=== PATIENT | female | born 1945 | race Two or more races ===

== ENCOUNTER 2020-12-15 13:11 | Emergency (ER) | payer MEDICARE, OTHER ==
[~2020-12-15] VITALS: Ht 144.8 cm; Wt 74.8 kg
[2020-12-15] MEDS ORDERED: HYDROcodone-ACET 5/325MG TAB PO ONE ×2 (14:15→17:45)
[2020-12-15] MEDS ORDERED: MORPHINE SULFATE 4 MG/ML SYR/VIAL IV ONE (14:30)
[2020-12-15] MEDS ORDERED: ONDANSETRON HCL 4 MG/2 ML VIAL IV ONE (14:30)
[2020-12-15 17:36] VITALS: BP 143/78
== END 2020-12-15 18:20 | disposition home or self-care (01) ==
LOC: EDBD 13:11 → ER 13:11
DX: M25.552 Pain in left hip (principal); M25.551 Pain in right hip; R51.9 Headache, unspecified; R00.0 Tachycardia, unspecified; E11.9 Type 2 diabetes mellitus without complications; I10 Essential (primary) hypertension; K21.9 Gastro-esophageal reflux disease without esophagitis; Z90.49 Acquired absence of other specified parts of digestive tract; W18.39XA Other fall on same level, initial encounter; Y93.89 Activity, other specified; Y92.89 Other specified places as the place of occurrence of the external cause; Y99.8 Other external cause status
CPT/HCPCS: 70450; 71045; 72125; 72192; 73562

== ENCOUNTER 2023-11-05 10:31 | Inpatient (IN) | payer OTHER, MEDICARE, MEDICAID ==
[~2023-11-05] VITALS: Ht 162.6 cm; Wt 78.5 kg
[2023-11-05 01:00] VITALS: BP 105/57; PULSE 73; RESP 18; TEMP 97.5; O2SAT 96
[2023-11-05 11:50] VITALS: PULSE 118; RESP 21; O2SAT 94
[2023-11-05 12:10] LABS: Basophils # (auto) 0.1 10 ^3/uL (0-0.2); Basophils % (auto) 0.3 % (0.0-2.0); Eosinophils # (auto) 0 10 ^3/uL (0-0.8); Hematocrit 38.6 % (36.0-46.0); Hemoglobin 11.8 g/dL (12.2-16.2); Lymphocytes # (auto) 0.4 10 ^3/uL (0.4-5.4); Lymphocytes % (auto) 1.6 % (10.0-50.0); Mean Corpuscular Hemoglobin 23.6 pg (28.0-32.0); Mean Corpuscular Hgb Conc. 30.5 g/dL (32.0-36.0); Mean Corpuscular Volume 77.1 fL (80.0-100.0); Monocytes # (auto) 1.4 10 ^3/uL (0-1.3); Monocytes % (auto) 5.6 % (0.0-12.0); Neutrophils # (auto) 23.6 10 ^3/uL (1.6-8.6); Neutrophils % (auto) 92.5 % (37.0-80.0); Red Blood Cells 5.01 10^6/uL (4.0-5.20); Red Cell Distribution Width 17.3 % (11.8-14.3); White Blood Cell 25.5 10^3/uL (4.4-10.8)
[2023-11-05 12:12] LABS: Alanine Aminotransferase 18 U/L (7-40); Albumin 3.7 g/dL (3.2-4.8); Alkaline Phosphatase 132 U/L (46-116); Anion Gap 11 (5-15); Aspartate Aminotransferase 59 U/L (13-40); BUN/Creatinine Ratio 22.9 (10.0-20.0); Bilirubin, Total 0.5 mg/dL (0.2-1.0); Blood Urea Nitrogen 16 mg/dL (9-23); Calcium 9.5 mg/dL (8.7-10.4); Carbon Dioxide 19 mmol/L (20-30); Chloride 111 mmol/L (98-107); Glucose 116 mg/dL (74-106); Lipase 24 U/L (12-53); Sodium 141 mmol/L (136-145); Total Protein 7.8 g/dL (5.7-8.2)
[2023-11-05] MEDS: SODIUM CHLORIDE 0.9% 1,000 ML IV ONE ×2 (12:13→16:44)
[2023-11-05 12:21] LABS: Lactic Acid w/Reflex 3.9 mmol/L (0.4-2.0)
[2023-11-05 12:23] LABS: INR 1.06 (0.9-1.15); Partial Thromboplastin Time 27.4 SEC (24.5-34.5); Prothrombin Time 11.2 sec (9.3-11.8)
[2023-11-05] MEDS: metroNIDAZOLE 500MG/100ML 100 ML IV ONE (13:36)
[2023-11-05] MEDS: PANTOPRAZOLE 40 MG/10 ML VIAL INJ IV ONE (13:36)
[2023-11-05] MEDS ORDERED: ACETAMINOPHEN 325 MG TAB PO PRN (14:00)
[2023-11-05] MEDS ORDERED: DEXTROSE (50%) 50ML SYRG IV PRN (14:00)
[2023-11-05] MEDS ORDERED: PANTOPRAZOLE 40 MG/10 ML VIAL INJ IV ONE (14:00)
[2023-11-05 14:30] LABS: Triglycerides 98 mg/dL (< 150)
[2023-11-05 14:31] LABS: LDL Cholesterol 60 mg/dL (< 100)
[2023-11-05 14:32] LABS: Cholesterol 113 mg/dL (< 200); HDL Cholesterol 39 mg/dL (40-59)
[2023-11-05] MEDS: KETOROLAC TROMETH 30 MG/ML 1ML VIAL IV ONE (16:42)
[2023-11-05] MEDS: PIPERACILLIN-TAZOB 3.375GM 100 ML IV ONE (16:44)
[2023-11-05 16:59] LABS: Erythrocyte Sedimentation Rate 13 mm/hr (0-20)
[2023-11-05] MEDS: InsuLIN REG 1unit/0.01ml Soln (100units/ml) SC SCH (17:00)
[2023-11-05 17:35] VITALS: BP 110/73; PULSE 90; RESP 18; TEMP 97.5; O2SAT 96
[2023-11-05] MEDS: SODIUM CHLORIDE 0.9% 1,000 ML IV SCH (18:14)
[2023-11-05] MEDS: ACCU-CHEK COMFORT CURVE STRIP VI SCH (18:14)
[2023-11-05 20:00] VITALS: PULSE 84; RESP 18; O2SAT 94
[2023-11-05 20:06] LABS: Lactic Acid w/Reflex 3.4 mmol/L (0.4-2.0)
[2023-11-05 21:00] VITALS: BP 105/64; PULSE 84; RESP 18; TEMP 97.7; O2SAT 94
[2023-11-05] MEDS ORDERED: LACTATED RINGER'S 1,000 ML IV ONE (21:15)
[2023-11-05] MEDS: LACTATED RINGER'S 1,000 ML IV ONE (21:42)
[2023-11-05] MEDS: PIPERACILLIN-TAZOB 3.375GM 100 ML IV SCH (21:43)
[2023-11-05] MEDS: metroNIDAZOLE 500MG/100ML 100 ML IV SCH (21:43)
[2023-11-06 00:57] LABS: Lactic Acid w/Reflex 2.7 mmol/L (0.4-2.0)
[2023-11-06 05:00] VITALS: BP 99/46; PULSE 61; RESP 16; TEMP 97.4; O2SAT 96
[2023-11-06 06:55] LABS: Alanine Aminotransferase 19 U/L (7-40); Alkaline Phosphatase 95 U/L (46-116); Anion Gap 10 (5-15); Aspartate Aminotransferase 30 U/L (13-40); BUN/Creatinine Ratio 27.7 (10.0-20.0); Blood Urea Nitrogen 18 mg/dL (9-23); Calcium 8.4 mg/dL (8.7-10.4); Carbon Dioxide 19 mmol/L (20-30); Chloride 110 mmol/L (98-107); Glucose 94 mg/dL (74-106); Potassium 4.1 mmol/L (3.5-5.1); Sodium 139 mmol/L (136-145); Total Protein 6.2 g/dL (5.7-8.2)
[2023-11-06 06:57] LABS: Bilirubin, Total 0.7 mg/dL (0.2-1.0)
[2023-11-06 07:00] LABS: Urine Bacteria None Seen /hpf (None Seen)
[2023-11-06 07:21] LABS: Urine Blood 1+ /uL (Negative); Urine Clarity Clear (Clear); Urine Color Yellow (Yellow); Urine Protein, UAD TRACE (Negative); Urine Specific Gravity 1.031 (1.001-1.035); Urine Urobilinogen Normal (Negative); Urine WBC 9 /hpf (0 - 5); Urine pH 5.5 (5.0-9.0)
[2023-11-06 09:00] VITALS: BP 109/56; PULSE 64; RESP 18; TEMP 97.6; O2SAT 97
[2023-11-06 13:00] VITALS: BP 122/62; PULSE 67; RESP 17; TEMP 97.9; O2SAT 97
[2023-11-06] MEDS: PANTOPRAZOLE 40 MG/10 ML VIAL INJ IV SCH (13:22)
[2023-11-06] MEDS: ENOXAPARIN SOD 40 MG/0.4 ML SYRINGE SC SCH (13:23)
[2023-11-06] MEDS: KETOROLAC TROMETH 30 MG/ML 1ML VIAL IV PRN (13:24)
[2023-11-06] MEDS: FLEET ENEMA(ADULT) 135 ML PR ONE (15:35)
[2023-11-06] MEDS: LACTULOSE 20Gm/30ML SOLN PO ONE (15:35)
[2023-11-06 17:00] VITALS: BP 115/61; PULSE 64; RESP 17; TEMP 97.6; O2SAT 92
[2023-11-06 20:00] VITALS: PULSE 60; RESP 18; O2SAT 94
[2023-11-06 21:00] VITALS: BP 114/55; PULSE 60; RESP 18; TEMP 98; O2SAT 97
[2023-11-06] MEDS: DOCUSATE SOD 100 MG CAP PO SCH (22:32)
[2023-11-07 05:00] VITALS: BP 132/66; PULSE 55; RESP 19; TEMP 97.6; O2SAT 96
[2023-11-07 09:00] VITALS: BP 143/75; PULSE 72; RESP 17; TEMP 97; O2SAT 97
[2023-11-07 09:48] LABS: Basophils # (auto) 0.1 10 ^3/uL (0-0.2); Basophils % (auto) 0.8 % (0.0-2.0); Eosinophils # (auto) 0.8 10 ^3/uL (0-0.8); Eosinophils % (auto) 6.7 % (0.0-7.0); Hematocrit 33.1 % (36.0-46.0); Hemoglobin 10.4 g/dL (12.2-16.2); Lymphocytes # (auto) 0.9 10 ^3/uL (0.4-5.4); Lymphocytes % (auto) 8.2 % (10.0-50.0); Mean Corpuscular Hemoglobin 23.7 pg (28.0-32.0); Mean Corpuscular Hgb Conc. 31.4 g/dL (32.0-36.0); Mean Corpuscular Volume 75.5 fL (80.0-100.0); Monocytes # (auto) 0.4 10 ^3/uL (0-1.3); Monocytes % (auto) 3.9 % (0.0-12.0); Neutrophils # (auto) 9.2 10 ^3/uL (1.6-8.6); Neutrophils % (auto) 80.4 % (37.0-80.0); Nucleated Red Blood Cells % 0.1 %; Red Blood Cells 4.38 10^6/uL (4.0-5.20); Red Cell Distribution Width 17.2 % (11.8-14.3); White Blood Cell 11.4 10^3/uL (4.4-10.8)
[2023-11-07 09:59] LABS: Chloride 113 mmol/L (98-107); Potassium 3.8 mmol/L (3.5-5.1); Sodium 142 mmol/L (136-145)
[2023-11-07 10:00] LABS: Anion Gap 7 (5-15); Calcium 8.4 mg/dL (8.7-10.4); Carbon Dioxide 22 mmol/L (20-30)
[2023-11-07 10:05] LABS: BUN/Creatinine Ratio 21.2 (10.0-20.0); Blood Urea Nitrogen 11 mg/dL (9-23); Glucose 84 mg/dL (74-106)
[2023-11-07 13:00] VITALS: BP 122/69; PULSE 60; RESP 16; TEMP 97.4; O2SAT 96
[2023-11-07] MEDS: BISACODYL 10 MG RECT SUPP PR ONE (14:21)
[2023-11-07 17:00] VITALS: BP 144/57; PULSE 68; RESP 16; TEMP 97.4; O2SAT 96
[2023-11-07 21:00] VITALS: BP 157/84; PULSE 70; RESP 18; TEMP 97.7; O2SAT 96
[2023-11-07] MEDS: PIPERACILLIN-TAZOB 3.375GM 100 ML IV SCH (23:07)
[2023-11-08 01:00] VITALS: BP 137/79; PULSE 64; RESP 18; TEMP 97.6; O2SAT 95
[2023-11-08 05:00] VITALS: BP 137/71; PULSE 68; RESP 18; TEMP 97.6; O2SAT 95
[2023-11-08 07:48] VITALS: BP 163/60; PULSE 67; RESP 20; TEMP 98.4; O2SAT 99
[2023-11-08 11:43] VITALS: BP 126/75; PULSE 75; RESP 20; TEMP 98.4; O2SAT 97
[2023-11-08] MEDS: ARTIFICIAL TEARS 15ml EACHEYE PRN (13:56)
[2023-11-08 16:36] VITALS: BP 135/88; PULSE 84; RESP 20; TEMP 98.6; O2SAT 96
[2023-11-08] MEDS: ONDANSETRON HCL 4 MG/2 ML VIAL IV PRN (17:37)
[2023-11-08 22:00] VITALS: BP 123/72; PULSE 73; RESP 16; TEMP 98.3; O2SAT 94
[2023-11-08] MEDS ORDERED: PIPERACILLIN-TAZOB 3.375GM 100 ML IV SCH (23:00)
[2023-11-09] VITALS (7 sets, daily range): BP systolic 119–150; BP diastolic 59–86; PULSE 62–73; RESP 16–19; TEMP 97.8–98.7; O2SAT 93–96
[2023-11-09 06:13] LABS: Basophils # (auto) 0 10 ^3/uL (0-0.2); Basophils % (auto) 0.7 % (0.0-2.0); Eosinophils # (auto) 0.5 10 ^3/uL (0-0.8); Hemoglobin 9.7 g/dL (12.2-16.2); Lymphocytes # (auto) 1.3 10 ^3/uL (0.4-5.4); Monocytes # (auto) 0.4 10 ^3/uL (0-1.3); Neutrophils # (auto) 3.6 10 ^3/uL (1.6-8.6); White Blood Cell 5.9 10^3/uL (4.4-10.8)
[2023-11-09 06:16] LABS: Eosinophils % (auto) 8.4 % (0.0-7.0); Hematocrit 30.1 % (36.0-46.0); Lymphocytes % (auto) 21.8 % (10.0-50.0); Mean Corpuscular Hgb Conc. 32.4 g/dL (32.0-36.0); Mean Corpuscular Volume 74.1 fL (80.0-100.0); Monocytes % (auto) 7.5 % (0.0-12.0); Neutrophils % (auto) 61.6 % (37.0-80.0); Red Blood Cells 4.06 10^6/uL (4.0-5.20); Red Cell Distribution Width 16.8 % (11.8-14.3)
[2023-11-09 06:17] LABS: Anion Gap 10 (5-15); Carbon Dioxide 21 mmol/L (20-30); Chloride 112 mmol/L (98-107); Potassium 2.9 mmol/L (3.5-5.1); Sodium 143 mmol/L (136-145)
[2023-11-09 06:23] LABS: Glucose 75 mg/dL (74-106)
[2023-11-09 06:36] LABS: BUN/Creatinine Ratio 10.2 (10.0-20.0); Blood Urea Nitrogen < 5 mg/dL (9-23)
[2023-11-09] MEDS: PIPERACILLIN-TAZOB 3.375GM 100 ML IV SCH (09:47)
[2023-11-09] MEDS: GASTROGRAFIN 120 ML SOL ONE (09:51)
[2023-11-10] VITALS (7 sets, daily range): BP systolic 119–177; BP diastolic 74–84; PULSE 64–71; RESP 17–24; TEMP 97.6–98.4; O2SAT 95–98
[2023-11-10 05:52] LABS: Basophils # (auto) 0 10 ^3/uL (0-0.2); Basophils % (auto) 0.6 % (0.0-2.0); Eosinophils # (auto) 0.5 10 ^3/uL (0-0.8); Eosinophils % (auto) 8.5 % (0.0-7.0); Hematocrit 30.6 % (36.0-46.0); Hemoglobin 9.8 g/dL (12.2-16.2); Lymphocytes # (auto) 1.6 10 ^3/uL (0.4-5.4); Lymphocytes % (auto) 25.7 % (10.0-50.0); Mean Corpuscular Hgb Conc. 32.1 g/dL (32.0-36.0); Mean Corpuscular Volume 74.6 fL (80.0-100.0); Monocytes # (auto) 0.6 10 ^3/uL (0-1.3); Monocytes % (auto) 9.5 % (0.0-12.0); Neutrophils # (auto) 3.4 10 ^3/uL (1.6-8.6); Neutrophils % (auto) 55.7 % (37.0-80.0); Nucleated Red Blood Cells % 0.1 %; Red Cell Distribution Width 17.1 % (11.8-14.3); White Blood Cell 6.1 10^3/uL (4.4-10.8)
[2023-11-10 06:09] LABS: Calcium 8.3 mg/dL (8.7-10.4); Chloride 114 mmol/L (98-107); Potassium 3.1 mmol/L (3.5-5.1); Sodium 142 mmol/L (136-145)
[2023-11-10 06:10] LABS: Anion Gap 7 (5-15); Carbon Dioxide 21 mmol/L (20-30)
[2023-11-10 06:15] LABS: Glucose 76 mg/dL (74-106)
[2023-11-10 06:19] LABS: BUN/Creatinine Ratio 10.4 (10.0-20.0); Blood Urea Nitrogen < 5 mg/dL (9-23)
[2023-11-10] MEDS: cefTRIAXone 1GM/50ML D5W 50 ML IV SCH (13:08)
[2023-11-10] MEDS: GASTROGRAFIN 120 ML SOL ONE (14:29)
[2023-11-10] MEDS: LINEZOLID 600MG/300ML 300 ML IV SCH (23:47)
[2023-11-11 01:00] VITALS: BP 148/76; PULSE 64; RESP 19; TEMP 98.2; O2SAT 98
[2023-11-11 05:00] VITALS: BP 141/71; PULSE 59; RESP 17; TEMP 98; O2SAT 97
[2023-11-11 08:16] LABS: Chloride 111 mmol/L (98-107); Potassium 2.9 mmol/L (3.5-5.1); Sodium 142 mmol/L (136-145)
[2023-11-11 08:17] LABS: Anion Gap 6 (5-15); Carbon Dioxide 25 mmol/L (20-30)
[2023-11-11 08:18] LABS: Calcium 8.4 mg/dL (8.7-10.4)
[2023-11-11 08:23] LABS: Glucose 77 mg/dL (74-106)
[2023-11-11 08:25] LABS: BUN/Creatinine Ratio 11.6 (10.0-20.0); Blood Urea Nitrogen < 5 mg/dL (9-23)
[2023-11-11 09:00] VITALS: BP 134/80; PULSE 68; RESP 21; TEMP 98; O2SAT 96
[2023-11-11 09:05] LABS: Basophils # (auto) 0.1 10 ^3/uL (0-0.2); Basophils % (auto) 0.8 % (0.0-2.0); Eosinophils # (auto) 0.6 10 ^3/uL (0-0.8); Neutrophils # (auto) 4.4 10 ^3/uL (1.6-8.6); Neutrophils % (auto) 61.9 % (37.0-80.0); White Blood Cell 7.1 10^3/uL (4.4-10.8)
[2023-11-11 09:06] LABS: Hemoglobin 10.7 g/dL (12.2-16.2); Lymphocytes # (auto) 1.6 10 ^3/uL (0.4-5.4); Lymphocytes % (auto) 21.8 % (10.0-50.0); Mean Corpuscular Hemoglobin 23.5 pg (28.0-32.0); Mean Corpuscular Hgb Conc. 31.6 g/dL (32.0-36.0); Mean Corpuscular Volume 74.2 fL (80.0-100.0); Monocytes # (auto) 0.5 10 ^3/uL (0-1.3); Monocytes % (auto) 7.5 % (0.0-12.0); Red Blood Cells 4.58 10^6/uL (4.0-5.20); Red Cell Distribution Width 17.2 % (11.8-14.3)
[2023-11-11 13:00] VITALS: BP 162/96; PULSE 95; RESP 20; TEMP 97.7; O2SAT 96
[2023-11-11] MEDS: KETOROLAC TROMETH 30 MG/ML 1ML VIAL IV ONE (16:33)
[2023-11-11 17:00] VITALS: BP 156/69; PULSE 61; RESP 21; TEMP 98.3; O2SAT 92
[2023-11-11 21:00] VITALS: BP 163/92; PULSE 71; RESP 18; O2SAT 95
[2023-11-12] VITALS (7 sets, daily range): BP systolic 124–167; BP diastolic 74–87; PULSE 65–78; RESP 15–20; TEMP 97.7–98.4; O2SAT 93–97
[2023-11-12 06:35] LABS: Basophils # (auto) 0.1 10 ^3/uL (0-0.2); Monocytes # (auto) 0.7 10 ^3/uL (0-1.3); Monocytes % (auto) 8.5 % (0.0-12.0); Red Cell Distribution Width 17.7 % (11.8-14.3)
[2023-11-12 06:37] LABS: Basophils % (auto) 0.8 % (0.0-2.0); Eosinophils # (auto) 0.8 10 ^3/uL (0-0.8); Eosinophils % (auto) 10.7 % (0.0-7.0); Lymphocytes # (auto) 1.9 10 ^3/uL (0.4-5.4); Mean Corpuscular Hgb Conc. 31.4 g/dL (32.0-36.0); Mean Corpuscular Volume 76.3 fL (80.0-100.0); Neutrophils # (auto) 4.3 10 ^3/uL (1.6-8.6); Nucleated Red Blood Cells % 0.4 %; Red Blood Cells 4.19 10^6/uL (4.0-5.20); White Blood Cell 7.8 10^3/uL (4.4-10.8)
[2023-11-12 06:52] LABS: Chloride 111 mmol/L (98-107); Potassium 2.8 mmol/L (3.5-5.1); Sodium 143 mmol/L (136-145)
[2023-11-12 06:53] LABS: Anion Gap 8 (5-15); Carbon Dioxide 24 mmol/L (20-30)
[2023-11-12 06:54] LABS: Calcium 8.1 mg/dL (8.7-10.4)
[2023-11-12 06:59] LABS: Glucose 74 mg/dL (74-106)
[2023-11-12 07:00] LABS: BUN/Creatinine Ratio 11.6 (10.0-20.0); Blood Urea Nitrogen < 5 mg/dL (9-23)
[2023-11-12] MEDS ORDERED: ACETAMINOPHEN 325 MG TAB PO PRN (18:00)
[2023-11-13 01:00] VITALS: BP 139/68; PULSE 75; RESP 18; TEMP 99.2; O2SAT 93
[2023-11-13 04:50] VITALS: BP 139/68; PULSE 75; RESP 18; TEMP 99.2; O2SAT 93
[2023-11-13 05:00] VITALS: BP 133/69; PULSE 73; RESP 18; TEMP 98.6; O2SAT 93
== END 2023-11-13 06:54 | disposition home health service (06) | DRG 871 ==
LOC: EDBD 10:31 → ER 10:31 → OVERFLOW 14:04 → CENTRAL 17:18
PROVIDERS: ADMIT Nurse Practitioner Family; ATTEND Family Medicine
PROC: 05H933Z Insertion of Infusion Device into Right Brachial Vein, Percutaneous Approach (ICD-10-PCS; principal; 2023-11-11)
PROC: B54MZZA Ultrasonography of Right Upper Extremity Veins, Guidance (ICD-10-PCS; 2023-11-11)
DX: A41.81 Sepsis due to Enterococcus (principal); L89.153 Pressure ulcer of sacral region, stage 3; K92.2 Gastrointestinal hemorrhage, unspecified; E87.21 Acute metabolic acidosis; R74.01 Elevation of levels of liver transaminase levels; I10 Essential (primary) hypertension; E11.9 Type 2 diabetes mellitus without complications; E66.01 Morbid (severe) obesity due to excess calories; K43.9 Ventral hernia without obstruction or gangrene; K21.9 Gastro-esophageal reflux disease without esophagitis; K76.0 Fatty (change of) liver, not elsewhere classified; F03.90 Unspecified dementia, unspecified severity, without behavioral disturbance, psychotic disturbance, mood disturbance, and anxiety; K56.41 Fecal impaction; Z74.01 Bed confinement status; Z90.49 Acquired absence of other specified parts of digestive tract; Z68.29 Body mass index [BMI] 29.0-29.9, adult; Z79.4 Long term (current) use of insulin; Z88.6 Allergy status to analgesic agent
CPT/HCPCS: 36415; 74018; 74176; 74250; 76705; 80048; 80053; 80061; 81001; 82270; 82378; 82962; 83036; 83605; 83690; 83735; 83880; 84443; 84484; 85025; 85610; 85652; 85730; 86850; 86900; 86901; 87040; 87045; 87077; 87177; 87186; 87427; 87493; 96365; 97110; 97163; 97530; 99291; G0378; J1815; J1885; J2405; J2470; J2543; J3490

== ENCOUNTER 2024-08-17 19:24 | Inpatient (IN) | payer OTHER, MEDICARE, MEDICAID ==
[~2024-08-17] VITALS: Ht 162.6 cm; Wt 63.6 kg
[2024-08-17 20:15] LABS: Basophils # (auto) 0 10 ^3/uL (0-0.2); Basophils % (auto) 0.2 % (0.0-2.0); Eosinophils # (auto) 0 10 ^3/uL (0-0.8); Hematocrit 33.4 % (36.0-46.0); Hemoglobin 10.6 g/dL (12.2-16.2); Lymphocytes # (auto) 1.2 10 ^3/uL (0.4-5.4); Lymphocytes % (auto) 8.9 % (10.0-50.0); Mean Corpuscular Hemoglobin 24.5 pg (28.0-32.0); Mean Corpuscular Hgb Conc. 31.8 g/dL (32.0-36.0); Mean Corpuscular Volume 77.2 fL (80.0-100.0); Monocytes # (auto) 1.5 10 ^3/uL (0-1.3); Monocytes % (auto) 11.1 % (0.0-12.0); Neutrophils # (auto) 10.8 10 ^3/uL (1.6-8.6); Neutrophils % (auto) 79.8 % (37.0-80.0); Platelet Count (auto) 245 10^3/uL (140-450); Red Blood Cells 4.32 10^6/uL (4.0-5.20); Red Cell Distribution Width 15.3 % (11.8-14.3); White Blood Cell 13.5 10^3/uL (4.4-10.8)
[2024-08-17 20:37] LABS: Albumin 3.6 g/dL (3.2-4.8); Anion Gap 8 (5-15); Aspartate Aminotransferase 15 U/L (13-40); BUN/Creatinine Ratio 27.2 (10.0-20.0); Glucose 97 mg/dL (74-106); Lipase 22 U/L (12-53); Potassium 4.6 mmol/L (3.5-5.1); Total Protein 6.9 g/dL (5.7-8.2)
[2024-08-17 20:38] LABS: Bilirubin, Total 0.6 mg/dL (0.2-1.0)
[2024-08-17 21:09] LABS: Alanine Aminotransferase < 9 U/L (7-40); Alkaline Phosphatase 146 U/L (46-116); Blood Urea Nitrogen 31 mg/dL (9-23); Calcium 8.3 mg/dL (8.7-10.4); Carbon Dioxide 20 mmol/L (20-31); Chloride 107 mmol/L (98-107); Sodium 135 mmol/L (136-145)
[2024-08-17 21:50] VITALS: PULSE 89; RESP 16
--- NOTE | 2024-08-17 21:52 | ED.PDOC ---
History of Present Illness HPI Comments 79 y/o F is BIBA from home with c/o diarrhea and dysuria. Per EMS report, family called on patient's behalf, due to 3x day history of continuing diarrhea. Patient is bed-ridden and has Dementia. Upon arrival to ED, she c/o dysuria that began today. She has no reported nausea, vomiting, abdominal pain, bloody stools, additional urinary symptoms, fever, chills, or other associated symptoms. Further history is limited, due to patient's current demented state and absence of family/caretakers present. Chief Complaint: Diarrhea Time Seen by MD: 20:00 Primary Care Provider: UNKNOWN Reviewed Notes: Nurses Notes, J2Ee Android Developer Notes, Medications, Allergies Allergies: Coded Allergies: Acetaminophen (Verified Allergy, Unknown, 11/05/23) Hydrocodone (Verified Allergy, Unknown, 11/05/23) Home Meds Unable to Obtain Active Prescriptions or Reported Meds Information Source: Patient, Emergency Med Personnel Mode of Arrival: EMS Severity: Moderate Timing: Days Duration: Since onset Prehospital treatment: 12 Lead EKG, Accucheck, Electrician'S Helper Past Medical History PAST MEDICAL HISTORY: Dementia, DM (type II), GERD, HTN Past Medical History (Other): Sepsis secondary to bacteremia Acute lactic acidosis Bacteremia with Enterococcus faecalis Transaminitis FOBT positive Chronic bedridden Stage III decubitus sacrum Parkinson's disease Surgical History: Cholecystectomy GEOLOGICAL TECHNICAL OFFICER History: Unobtainable Family History Family History: Family hx of Cancer Social History Smoker: Non-Smoker Alcohol: Denies ETOH Use Drugs: Denies Drug Use Lives In: Home Constitutional: reports: fatigue, malaise; denies: chills, diaphoresis, fever, sweats, weakness, others EENTM: denies: blurred vision, double vision, ear bleeding, ear discharge, ear drainage, ear pain, ear ringing, eye pain, eye redness, hearing loss, mouth pain, mouth swelling, nasal discharge, nose bleeding, nose congestion, nose pain, photophobia, tearing, throat pain, throat swelling, voice changes, others Respiratory: denies: cough, hemoptysis, orthopnea, SOB at rest, shortness of breath, SOB with excertion, stridor, wheezing, others Cardiovascular: denies: chest pain, dizzy spells, diaphoresis, Dyspnea on exertion, edema, irregular heart beat, left arm pain, lightheadedness, palpitations, PND, syncope, others Gastrointestinal: reports: abdominal pain, diarrhea; denies: abdomen distended, blood streaked bowels, constipated, dysphagia, difficulty swallowing, hemate mesis, melena, poor appetite, poor fluid intake, rectal bleeding, rectal pain, vomiting, others Genitourinary: reports: burning; denies: abnormal vagina bleeding, dyspareunia, dysuria, flank pain, frequency, hematuria, incontinence, pain, , vagina discharge, urgency, others Neurological: denies: dizziness, fainting, headache, left sided numbness, left sided weakness, numbness, paresthesia, pre-existing deficit, right sided numbness, right sided weakness, seizure, speech problems, tingling, tremors, weakness, others Musculoskeletal: reports: back pain; denies: gout, joint pain, joint swelling, muscle pain, muscle stiffness, neck pain, others Integumetry: denies: bruises, change in color, change in hair/nails, dryness, laceration, lesions, lumps, rash, wounds, others Hematologic/Lymphatic: denies: anemia, blood clots, easy bleeding, easy bruising, swollen glands, others Endocrine: denies: excessive hunger, excessive sweating, excessive thirst, excessive urination, flushing, intolerance to cold, intolerance to heat, unexplained weight gain, unexplained weight loss, others Psychiatric: denies: anxiety, bipolar disorder, depression, hopeless, panic disorder, schizophrenia, sleepless, suicidal, others All Other Systems: Reviewed and Negative (Comprehensive systems review obtained and negative except for what is stated in the HPI.) Physical Exam General Appearance: No Apparent Distress, Normal, Other (patient is laying on her left-side) HEENT: Normal ENT Inspection, Pharynx Normal, TMs Normal Neck: Full Range of Motion, Non-Tender, Normal, Normal Inspection Respiratory: Chest Non-Tender, Lungs Clear, No Accessory Muscle Use, No Respiratory Distress, Normal Breath Sounds Cardiovascular: No Edema, No JVD, No Murmur, No Gallop, Normal Peripheral Pulses, Regular Rate/Rhythm Breast Exam: Deferred Gastrointestinal: No Organomegaly, Non Tender, No Pulsatile Mass, Normal Bowel Sounds, Soft Genitalia: Deferred Pelvic: Deferred Rectal: Deferred Extremities: No calf tenderness, Normal capillary refill, Normal inspection, Normal range of motion, Non-tender, No pedal edema Musculoskeletal : Apperance: Normal Neurologic: Alert, safety trainer II-XII nml as Tested, Normal Affect, Normal Mood, No Sensory Deficits, Other (Chronic bedridden) Cerebellar Function: Normal Reflexes: Normal Skin: Dry, Normal Color, Warm Lymphatic: No Adenopathy Was a procedure done? Was a procedure done?: No Differential Dx Considerations may include: viral syndrome, UTI, nephrolithiasis, gastritis, gastroenteritis, electrolyte imbalance, dehydration, among others X-Ray, Labs, Meds, VS Vital Signs Date Time Temp Pulse Resp B/P (MAP) Pulse Ox O2 Delivery O2 Flow Rate FiO2 08/17/24 23:04 96/54 08/17/24 23:00 82 17 96/54 (68) 08/17/24 22:15 98 17 75/43 (54) 100 08/17/24 22:10 279/249 08/17/24 21:55 86 22 240/224 (229) 97 08/17/24 21:51 89 16 214/120 (151) 08/17/24 21:50 89 16 Nasal Cannula* 4 36 08/17/24 19:44 99.0 95 22 105/60 (75) 95 99.0 Lab Test 08/17/24 23:06 08/17/24 20:06 Range/Units Urine Color Yellow Yellow Urine Clarity Turbid H Clear Urine pH 5.0 5.0-9.0 Urine Specific [place] 1.018 1.001-1.035 Urine Protein Trace H Negative Urine Ketones Negative Negative Urine Blood Trace H Negative /uL Urine Nitrite Negative Negative Urine Bilirubin Negative Negative Urine Urobilinogen 3 H Negative mg/dL Urine Leukocyte Esterase 3+ Negative /uL Urine RBC 6 0 - 4 /hpf Urine WBC Clumps Present None Seen /hpf Urine Microscopic WBC 380 H 0-5 /HPF Urine Squamous Epithelial Cells Few <5 /hpf Urine Bacteria Many H None Seen /hpf Urine Hyaline Casts Many 0 - 2 /lpf Urine Mucus Few None Seen Urine Glucose Normal Normal mg/dL White Blood Count 13.5 H 4.4-10.8 10^3/uL Red Blood Count 4.32 4.0-5.20 10^6/uL Hemoglobin 10.6 L 12.2-16.2 g/dL Hematocrit 33.4 L 36.0-46.0 % Mean Corpuscular Volume 77.2 L 80.0-100.0 fL Mean Corpuscular Hemoglobin 24.5 L 28.0-32.0 pg Mean Corpuscular Hemoglobin Concent 31.8 L 32.0-36.0 g/dL Red Cell Distribution Width 15.3 H 11.8-14.3 % Platelet Count 245 140-450 10^3/uL Mean Platelet Volume 8.2 6.9-10.8 fL Neutrophils (%) (Auto) 79.8 37.0-80.0 % Lymphocytes (%) (Auto) 8.9 L 10.0-50.0 % Monocytes (%) (Auto) 11.1 0.0-12.0 % Eosinophils (%) (Auto) 0.0 0.0-7.0 % Basophils (%) (Auto) 0.2 0.0-2.0 % Neutrophils # (Auto) 10.8 H 1.6-8.6 10 ^3/uL Lymphocytes # (Auto) 1.2 0.4-5.4 10 ^3/uL Monocytes # (Auto) 1.5 H 0-1.3 10 ^3/uL Eosinophils # (Auto) 0 0-0.8 10 ^3/uL Basophils # (Auto) 0 0-0.2 10 ^3/uL Nucleated Red Blood Cells 0.0 % Sodium Level 135 L 136-145 mmol/L Potassium Level 4.6 3.5-5.1 mmol/L Chloride Level 107 98-107 mmol/L Carbon Dioxide Level 20 20-31 mmol/L Anion Gap 8 5-15 Blood Urea Nitrogen 31 H 9-23 mg/dL Creatinine 1.14 H 0.550-1.02 mg/dL Glomerular Filtration Rate Calc 49 >90 mL/min BUN/Creatinine Ratio 27.2 H 10.0-20.0 Serum Glucose 97 74-106 mg/dL Lactic Acid Level 1.3 0.4-2.0 mmol/L Calcium Level 8.3 L 8.7-10.4 mg/dL Total Bilirubin 0.6 0.2-1.0 mg/dL Aspartate Amino Transferase (AST) 15 13-40 U/L Alanine Aminotransferase (ALT) < 9 7-40 U/L Alkaline Phosphatase 146 H 46-116 U/L Total Protein 6.9 5.7-8.2 g/dL Albumin 3.6 3.2-4.8 g/dL Lipase 22 12-53 U/L Current Medications Medications (Trade) Dose Ordered Sig/Marlen Route Start Time Stop Time Status Last Admin Sodium Chloride 1,000 ml @ 1,000 mls/hr Q1H ONCE IV 08/17/24 22:30 08/17/24 23:29 DC 08/17/24 22:35 Nitroglycerin (Ntrostat Sublingual) 0.4 mg ONCE ONCE SL 08/17/24 22:45 08/17/24 22:46 DC 08/17/24 22:10 X-Ray, Labs, Meds, VS Comment Imaging: X-rays and CT scans were reviewed and interpreted by this provider, IMPRESSION: Artifactually limited, noncontrast examination. Moderate to large volume stool within the rectum. Associated wall thickening of the sigmoid and rectum with perirectal inflammatory change. Findings suggest colitis, likely in part related to fecal impaction. Recommend close follow-up to resolution to exclude any underlying lesions. Other findings as above. HS:Y Laboratory: Labs reviewed and interpreted by this provider. Significant white count in urine shows significant for urinary tract infection Patient will be admitted for urinary tract infection and diarrhea Patient was given IV bolus fluid to help with hypotension Patient will be started on Rocephin 1 g Patient has prior medical visits reviewed. Med reconciliation performed Vital signs reviewed Time of 1ST Reevaluation: 20:30 Reevaluation 1ST: Unchanged Patient Education/Counseling: Diagnosis, Treatment, Other (patient has dementia) Family Education/Counseling: No Family Present Additional Information -Reviewed patient's previous visit(s): November 05, 2023 encounter for Sepsis, r/o C. Diff. - The following tests were ordered, and results were reviewed by me: UA, lipase, lactic acid w/reflex, CBC, CMP, CT abdomen/pelvis w/o contrast - Additional information was gathered from interviewing the following independent Historian: EMS - I reviewed and agreed with the following test results read by other provider: CT abdomen/pelvis w/o contrast - I discussed treatments and results with medical personnel and: patient Departure 1 Departure Time of Disposition: 00:58 Impression: Primary Impression: UTI (urinary tract infection) Qualified Codes: N30.01 - Acute cystitis with hematuria Additional Impressions: Hypotension Qualified Codes: I95.89 - Other hypotension Constipation Qualified Codes: K59.01 - Slow transit constipation Disposition: ADMITTED INPATIENT Condition: Fair e-Prescriptions Unable to Obtain Active Prescriptions or Reported Meds Discharged With: Self Critical Care Note Critical Care Time?: No Stability Stability form required: No Heart Score Heart Score: Heart Score Response (Comments) Value History N/A 0 EKG N/A 0 Age N/A 0 Risk Factors N/A 0 Troponin N/A 0 Total 0 I personally scribed for CHIP BOYERP ([email or web address]) on 08/17/24 at 21:52. Electronically submitted by Don Mays ([email or web address]). I personally scribed for CHIP BOYERP ([email or web address]) on 08/17/24 at 22:01. Electronically submitted by Don Mays ([email or web address]). CHIP BOYER SPA TECHNICIAN August 17, 2024 21:52
[2024-08-17] MEDS: NITROGLYCERIN 0.4 MG SL TAB SL ONE ×2 (22:02→22:10)
[2024-08-17] MEDS: hydrALAZINE HCL 20 MG/ML VL IV ONE (22:05)
[2024-08-17] MEDS: SODIUM CHLORIDE 0.9% 1,000 ML IV ONE (22:35)
[2024-08-17 23:29] LABS: Urine Bacteria MANY /hpf (None Seen); Urine Blood TRACE /uL (Negative); Urine Clarity Turbid (Clear); Urine Color Yellow (Yellow); Urine Hyaline Cast MANY /lpf (0 - 2); Urine Mucus FEW (None Seen); Urine Protein, UAD TRACE (Negative); Urine Specific Gravity 1.018 (1.001-1.035); Urine Squamous Epithelial Cell FEW /hpf (<5); Urine Urobilinogen 3 mg/dL (Negative); Urine WBC 380 /HPF (0-5); Urine WBC Clumps PRESENT /hpf (None Seen)
--- NOTE | 2024-08-17 23:55 | DVH ---
CT CHEST, ABDOMEN AND PELVIS WITHOUT CONTRAST HISTORY: diarrhea COMPARISON: CT CT AB PEL WO CON-NO ORAL OR IV on DOS: 11/05/23 TECHNIQUE: Helical axial CT images of the chest, abdomen and pelvis were obtained without intravenous contrast. Multiplanar reformats. One or more of the following radiation dose reduction techniques we re used for this examination: automated exposure control, adjustment of the mA and/or kV according to patient size, use of iterative reconstruction technique. FINDINGS: Evaluation of visceral and vascular structures is limited due to lack of contrast administration. Note that examination is also significantly limited by severe kyphosis and subsequent beam hardening artifact. CHEST: Mediastinum: Heart appears mildly enlarged. Coronary artery calcifications noted. No discretely enla rged mediastinal lymph nodes identified. Pleural cavity: No definite pleural effusions or pneumothorax. Lungs: Scattered atelectasis/ scarring, mostly in the lung bases. No lobar consolidation identified a t this time. Chest wall and axillae: No discretely enlarged axillary lymph nodes noted. ABDOMEN AND PELVIS: Liver: No discrete hepatic lesions as visualized. Gallbladder and biliary system: The gallbladder is not clearly delineated and may be surgically absen t. Pancreas: Negative. Spleen: Negative. Adrenal Glands: Negative. Kidneys and collecting system: Atrophic right kidney. No hydronephrosis. Bowel: Mild fluid content in the distal small bowel without overt dilatation. This may be reactive. No other evidence of high-grade small bowel obstruction at this time. Moderate to large volume stool in the rectum. Rectal wall thickening. Sigmoid thickening is also noted. Perirectal fat stranding. N o free intraperitoneal air identified. Retroperitoneum: Aortoiliac atherosclerotic calcifications. No definite evidence of abdominal aortic aneurysm. Pelvis: No sizable bladder calculus. Uterine calcifications noted. Osseous structures: Severe kyphosis. Age indeterminate but chronic appearing severe anterior wedge co mpression deformities of T6, T11 and T12. IMPRESSION: Artifactually limited, noncontrast examination. Moderate to large volume stool within the rectum. Associated wall thickening of the sigmoid and rect um with perirectal inflammatory change. Findings suggest colitis, likely in part related to fecal im paction. Recommend close follow-up to resolution to exclude any underlying lesions. Other findings as above. HS:Y
[2024-08-18] VITALS (21 sets, daily range): BP systolic 87–125; BP diastolic 57–79; PULSE 65–131; RESP 11–31; TEMP 97.6; O2SAT 73–100
--- NOTE | 2024-08-18 00:31 | DVH ---
CT HEAD WITHOUT CONTRAST INDICATION: henley COMPARISON: HEAD WITHOUT CONTRAST on DOS: 12/15/20 TECHNIQUE: CT of the head without intravenous contrast. RADIATION DOSE: CTDIvol: 36.18 mGy, DLP: 1187.42 mGy*cm FINDINGS: There is no evidence of intracranial hemorrhage, infarct, extra-axial collection, mass effect, midli ne shift, herniation or hydrocephalus. Minimal chronic white matter microvascular ischemic change. Mi [id number] ventricular and sulcal enlargement related to cerebral volume loss. Visualized parana twila sinuses and mastoid air cells are clear. Soft tissues and osseous structures are unremarkable. IMPRESSION: No acute intracranial abnormality identified.
[2024-08-18] MEDS: cefTRIAXone 1GM/50ML D5W 50 ML IV ONE (01:00)
[2024-08-18] MEDS ORDERED: ONDANSETRON HCL 4 MG/2 ML VIAL IV PRN (01:30)
[2024-08-18] MEDS: SODIUM CHLORIDE 0.9% 500 ML IV ONE ×2 (04:35→12:30)
--- NOTE | 2024-08-18 05:20 | DVHHP2 ---
History of Present Illness Reason for Visit: Urinary symptoms History of Present Illness 79-year-old female presents for evaluation of urinary symptoms. Patient developed dysuria for the past one day. She does have a history of dementia and is bed ridden. There is also reports of three day history of diarrhea. No abdominal pain, nausea or vomiting. No fever or chills. Past Medical History Hypertension, GERD, Parkinson's disease Past Surgical History Cholecystectomy Family History Noncontributory Smoke: No ALCOHOL: none Drugs: None Lives: with Family Review of Systems Review of Systems Review of systems are limited due to the patient's altered mental status. Allergies: Coded Allergies: Acetaminophen (Verified Allergy, Unknown, 11/05/23) Hydrocodone (Verified Allergy, Unknown, 11/05/23) Medications Current Medications Medications Dose Ordered Sig/Marlen Route Start Time Stop Time Status Last Admin Dose Admin Ceftriaxone Sodium 50 ml @ 100 mls/hr Q24H IV 08/19/24 01:00 Ondansetron HCl 4 mg Q4HP PRN IV 08/18/24 01:30 Enoxaparin Sodium 40 mg DAILY SC 08/18/24 10:00 Carbidopa/Levodopa 1 tab TID PO 08/18/24 06:00 Quetiapine Fumarate 25 mg BID PO 08/18/24 10:00 Exam Vital Signs Vital Signs Date Time Temp Pulse Resp B/P (MAP) Pulse Ox O2 Delivery O2 Flow Rate FiO2 08/18/24 04:00 62 08/18/24 04:00 18 80/42 (55) 100 08/18/24 01:00 98.0 98.0 08/17/24 21:50 Nasal Cannula* 4 36 Exam Gen: 79-year-old female in mild distress Skin: Warm, dry, normal color and texture, no rash. HEENT: Normocephalic atraumatic, mucous membranes moist and pink. Neck: Cervical and supraclavicular nodes normal without enlargement, trachea is midline, thyroid gland is normal without masses. Pulmonary: Clear to auscultation and percussion bilaterally. Cardiac: Regular rate and rhythm. No murmur Abdomen: Soft, nontender, nondistended, bowel sounds present all 4 quadrants, no guarding, no rigidity, no organomegaly. Extremities: No cyanosis, clubbing, no edema Neuro: Cranial nerves II through XII grossly intact, normal affect and speech, no focal motor deficits. Labs/Xrays ORDERING PHYSICIAN: CHIP BOYER PROCEDURE(s): CTCAP - CHST AB PEL WO CON-NO IV/ORAL REASON: diarrhea ORDER NUMBER(s): [id number], ACCESSION NUMBER(s): [id number] CT CHEST, ABDOMEN AND PELVIS WITHOUT CONTRAST HISTORY: diarrhea COMPARISON: CT CT AB PEL WO CON-NO ORAL OR IV on DOS: 11/05/23 TECHNIQUE: Helical axial CT images of the chest, abdomen and pelvis were obtained without intravenous contrast. Multiplanar reformats. One or more of the following radiation dose reduction techniques were used for this examination: automated exposure control, adjustment of the mA and/or kV according to patient size, use of iterative reconstruction technique. FINDINGS: Evaluation of visceral and vascular structures is limited due to lack of contrast administration. Note that examination is also significantly limited by severe kyphosis and subsequent beam hardening artifact. CHEST: Mediastinum: Heart appears mildly enlarged. Coronary artery calcifications noted. No discretely enlarged mediastinal lymph nodes identified. Pleural cavity: No definite pleural effusions or pneumothorax. Lungs: Scattered atelectasis/ scarring, mostly in the lung bases. No lobar consolidation identified at this time. Chest wall and axillae: No discretely enlarged axillary lymph nodes noted. ABDOMEN AND PELVIS: Liver: No discrete hepatic lesions as visualized. Gallbladder and biliary system: The gallbladder is not clearly delineated and may be surgically absent. Pancreas: Negative. Spleen: Negative. Adrenal Glands: Negative. Kidneys and collecting system: Atrophic right kidney. No hydronephrosis. Bowel: Mild fluid content in the distal small bowel without overt dilatation. This may be reactive. No other evidence of high-grade small bowel obstruction at this time. Moderate to large volume stool in the rectum. Rectal wall thickening. Sigmoid thickening is also noted. Perirectal fat stranding. No free intraperitoneal air identified. Retroperitoneum: Aortoiliac atherosclerotic calcifications. No definite evidence of abdominal aortic aneurysm. Pelvis: No sizable bladder calculus. Uterine calcifications noted. Osseous structures: Severe kyphosis. Age indeterminate but chronic appearing severe anterior wedge compression deformities of T6, T11 and T12. IMPRESSION: Artifactually limited, noncontrast examination. Moderate to large volume stool within the rectum. Associated wall thickening of the sigmoid and rectum with perirectal inflammatory change. Findings suggest colitis, likely in part related to fecal impaction. Recommend close follow-up to resolution to exclude any underlying lesions. Other findings as above. HS:Y RING PHYSICIAN: CHIP BOYER PROCEDURE(s): HWOCT - HEAD WITHOUT CONTRAST REASON: henley ORDER NUMBER(s): [id number], ACCESSION NUMBER(s): [id number] CT HEAD WITHOUT CONTRAST INDICATION: henley COMPARISON: HEAD WITHOUT CONTRAST on DOS: 12/15/20 TECHNIQUE: CT of the head without intravenous contrast. RADIATION DOSE: CTDIvol: 36.18 mGy, DLP: 1187.42 mGy*cm FINDINGS: There is no evidence of intracranial hemorrhage, infarct, extra-axial collection, mass effect, midline shift, herniation or hydrocephalus. Minimal chronic white matter microvascular ischemic change. [id number] ventricular and sulcal enlargement related to cerebral volume loss. Visualized paranasal sinuses and mastoid air cells are clear. Soft tissues and osseous structures are unremarkable. IMPRESSION: No acute intracranial abnormality identified. Labs Test 08/17/24 23:06 08/17/24 20:06 Range/Units Urine Color Yellow Yellow Urine Clarity Turbid H Clear Urine pH 5.0 5.0-9.0 Urine Specific [place] 1.018 1.001-1.035 Urine Protein Trace H Negative Urine Ketones Negative Negative Urine Blood Trace H Negative /uL Urine Nitrite Negative Negative Urine Bilirubin Negative Negative Urine Urobilinogen 3 H Negative mg/dL Urine Leukocyte Esterase 3+ Negative /uL Urine RBC 6 0 - 4 /hpf Urine WBC Clumps Present None Seen /hpf Urine Microscopic WBC 380 H 0-5 /HPF Urine Squamous Epithelial Cells Few <5 /hpf Urine Bacteria Many H None Seen /hpf Urine Hyaline Casts Many 0 - 2 /lpf Urine Mucus Few None Seen Urine Glucose Normal Normal mg/dL White Blood Count 13.5 H 4.4-10.8 10^3/uL Red Blood Count 4.32 4.0-5.20 10^6/uL Hemoglobin 10.6 L 12.2-16.2 g/dL Hematocrit 33.4 L 36.0-46.0 % Mean Corpuscular Volume 77.2 L 80.0-100.0 fL Mean Corpuscular Hemoglobin 24.5 L 28.0-32.0 pg Mean Corpuscular Hemoglobin Concent 31.8 L 32.0-36.0 g/dL Red Cell Distribution Width 15.3 H 11.8-14.3 % Platelet Count 245 140-450 10^3/uL Mean Platelet Volume 8.2 6.9-10.8 fL Neutrophils (%) (Auto) 79.8 37.0-80.0 % Lymphocytes (%) (Auto) 8.9 L 10.0-50.0 % Monocytes (%) (Auto) 11.1 0.0-12.0 % Eosinophils (%) (Auto) 0.0 0.0-7.0 % Basophils (%) (Auto) 0.2 0.0-2.0 % Neutrophils # (Auto) 10.8 H 1.6-8.6 10 ^3/uL Lymphocytes # (Auto) 1.2 0.4-5.4 10 ^3/uL Monocytes # (Auto) 1.5 H 0-1.3 10 ^3/uL Eosinophils # (Auto) 0 0-0.8 10 ^3/uL Basophils # (Auto) 0 0-0.2 10 ^3/uL Nucleated Red Blood Cells 0.0 % Sodium Level 135 L 136-145 mmol/L Potassium Level 4.6 3.5-5.1 mmol/L Chloride Level 107 98-107 mmol/L Carbon Dioxide Level 20 20-31 mmol/L Anion Gap 8 5-15 Blood Urea Nitrogen 31 H 9-23 mg/dL Creatinine 1.14 H 0.550-1.02 mg/dL Glomerular Filtration Rate Calc 49 >90 mL/min BUN/Creatinine Ratio 27.2 H 10.0-20.0 Serum Glucose 97 74-106 mg/dL Lactic Acid Level 1.3 0.4-2.0 mmol/L Calcium Level 8.3 L 8.7-10.4 mg/dL Total Bilirubin 0.6 0.2-1.0 mg/dL Aspartate Amino Transferase (AST) 15 13-40 U/L Alanine Aminotransferase (ALT) < 9 7-40 U/L Alkaline Phosphatase 146 H 46-116 U/L Total Protein 6.9 5.7-8.2 g/dL Albumin 3.6 3.2-4.8 g/dL Lipase 22 12-53 U/L Assessment/Plan Assessment/Plan Assessment Metabolic encephalopathy Complicated UTI Parkinson's disease Plan Admit the patient to [facility] to the hospitalist Delfina Urine bacterial culture pending Stool bacterial culture pending Resume home medications Continue treatment per orders. Plan discussed with: Patient My Orders Orders - DANIELLE AGEE Procedure Category Date Status Time Urine Bacterial GISSELLE 08/18/24 In Process Culture 01:19 Basic Metabolic Panel LAB 08/19/24 Verified 04:00 Admit ADMIT 08/18/24 Transmitted 01:19 Ondansetron Hcl PHA 08/18/24 In Process (Zofran) 01:30 Enoxaparin Sodium PHA 08/18/24 In Process (Lovenox) 10:00 Complete Blood Count LAB 08/19/24 Verified 04:00 Cardiac DIET 08/18/24 Transmitted Diet-2gna,Lofat,Lochol Breakfast Condition: Stable CELESTE 08/18/24 In Process 01:19 Bedrest With Bathroom CELESTE 08/18/24 In Process Privileg 01:19 Carbidopa W Levodopa PHA 08/18/24 In Process 25/100mg (Sinemet 2 06:00 Quetiapine Fumarate PHA 08/18/24 In Process Tablet (Seroquel Tab 10:00 Ceftriaxone 1gm/50ml PHA 08/19/24 In Process D5w (Rocephin) 01:00 Stool Bacterial GISSELLE 08/18/24 Logged Culture 05:16 Date of Service: August 18, 2024 Billing Provider: DANIELLE AGEE Common Visit Codes: [id number] INP/OBS CARE (HIGH) DANIELLE AGEE August 18, 2024 05:20
[2024-08-18] MEDS: CARBIDOPA W LEVODOPA 25/100mg TABLET PO SCH (05:46)
[2024-08-18] MEDS: QUEtiapine FUMARATE 25 MG TAB PO SCH (10:00)
[2024-08-18] MEDS: ENOXAPARIN SOD 40 MG/0.4 ML SYRINGE SC SCH (10:00)
[2024-08-18] MEDS: SODIUM CHLORIDE 0.9% 1,000 ML IV ONE (13:15)
--- NOTE | 2024-08-18 13:43 | DVHPN2 ---
Reviewed: Care Plan, H&P, Labs, Medications, Previous Orders, Radiology Changes from previous H/P or p: No Changes Objective Vitals Vital Signs Date Time Temp Pulse Resp B/P (MAP) Pulse Ox O2 Delivery O2 Flow Rate FiO2 08/18/24 12:00 82 08/18/24 11:30 18 93/48 (63) 100 08/18/24 09:45 98.4 08/18/24 07:30 Nasal Cannula* 2 28 Intake/Output Intake and Output 08/18/24 07:00 Intake Total 1550 ml Balance 1550 ml Intake IV Total 1550 ml Medications Current Medications Medications Dose Ordered Sig/Marlen Route Start Time Stop Time Status Last Admin Dose Admin Ceftriaxone Sodium 50 ml @ 100 mls/hr Q24H IV 08/19/24 01:00 Ondansetron HCl 4 mg Q4HP PRN IV 08/18/24 01:30 Enoxaparin Sodium 40 mg DAILY SC 08/18/24 10:00 08/18/24 10:00 40 MG Carbidopa/Levodopa 1 tab TID PO 08/18/24 06:00 08/18/24 05:46 1 TAB Quetiapine Fumarate 25 mg BID PO 08/18/24 10:00 08/18/24 10:00 25 MG Sodium Chloride 1,000 ml @ 125 mls/hr Q8H IV 08/18/24 14:30 Laboratory Results Laboratory Tests 08/17/24 20:06 Chemistry Test 08/17/24 20:06 Albumin 3.6 g/dL (3.2-4.8) Calcium Level 8.3 mg/dL (8.7-10.4) L Total Protein 6.9 g/dL (5.7-8.2) Lipid panel Test 08/17/24 20:06 Lipase 22 U/L (12-53) LFT Test 08/17/24 20:06 Alanine Aminotransferase (ALT) < 9 U/L (7-40) Alkaline Phosphatase 146 U/L (46-116) H Aspartate Amino Transferase (AST) 15 U/L (13-40) Total Bilirubin 0.6 mg/dL (0.2-1.0) Urinalysis Test 08/17/24 23:06 Urine Color Yellow (Yellow) Urine Clarity Turbid (Clear) H Urine pH 5.0 (5.0-9.0) Urine Specific [place] 1.018 (1.001-1.035) Urine Protein Trace (Negative) H Urine Ketones Negative (Negative) Urine Blood Trace /uL (Negative) H Urine Nitrite Negative (Negative) Urine Bilirubin Negative (Negative) Urine Urobilinogen 3 mg/dL (Negative) H Urine Leukocyte Esterase 3+ /uL (Negative) Urine RBC 6 /hpf (0 - 4) Urine WBC Clumps Present /hpf (None Seen) Urine Microscopic WBC 380 /HPF (0-5) H Urine Squamous Epithelial Cells Few /hpf (<5) Urine Bacteria Many /hpf (None Seen) H Urine Hyaline Casts Many /lpf (0 - 2) Urine Mucus Few (None Seen) Urine Glucose Normal mg/dL (Normal) Labs and/or images reviewed: Labs reviewed by me, Image(s) reviewed by me Assessment/Plan Assessment/Plan Sepsis secondary to tract infection: Blood cultures urine cultures Acute Metabolic encephalopathy Acute urinary tract infection: Rocephin Acute lactic acidosis Chronically bedridden dementia Type 2 diabetes Moderate obesity Patient is hospice revoked Time spent 70 minutes Patient is full code Advanced care planning time 20 mts Plan discussed with: Patient My Orders Orders - MOMO JAMESON MD Procedure Category Date Status Time Sodium Chloride 0.9% PHA 08/18/24 In Process 14:30 Sodium Chloride 0.9% PHA 08/18/24 In Process 13:15 Date of Service: August 18, 2024 Billing Provider: MOMO JAMESON MD Common Visit Codes: [id number] CARE 30-74 MIN MOMO JAMESON MD August 18, 2024 13:43
[2024-08-18] MEDS: SODIUM CHLORIDE 0.9% 1,000 ML IV SCH (14:30)
[2024-08-18] MEDS: NOREPINEPHRINE 8 MG/250ML KIT 250 ML IV SCH (15:00)
[2024-08-18] MEDS: traMADol HCL 50 MG TAB PO PRN (21:54)
[2024-08-19] VITALS (32 sets, daily range): BP systolic 84–112; BP diastolic 40–73; PULSE 65–119; RESP 13–33; TEMP 97.6–97.7; O2SAT 97–100
[2024-08-19] MEDS: cefTRIAXone 1GM/50ML D5W 50 ML IV SCH (01:45)
[2024-08-19 04:12] LABS: Basophils # (auto) 0.1 10 ^3/uL (0-0.2); Eosinophils # (auto) 0.4 10 ^3/uL (0-0.8); Hematocrit 34.6 % (36.0-46.0); Lymphocytes # (auto) 1.2 10 ^3/uL (0.4-5.4); Mean Corpuscular Hemoglobin 24.2 pg (28.0-32.0); Mean Corpuscular Hgb Conc. 31.7 g/dL (32.0-36.0); Monocytes # (auto) 0.6 10 ^3/uL (0-1.3); Neutrophils # (auto) 5.2 10 ^3/uL (1.6-8.6); Nucleated Red Blood Cells % 0.1 %; Red Blood Cells 4.53 10^6/uL (4.0-5.20); Red Cell Distribution Width 15.9 % (11.8-14.3)
[2024-08-19 04:14] LABS: Basophils % (auto) 0.9 % (0.0-2.0); Eosinophils % (auto) 5.1 % (0.0-7.0); Lymphocytes % (auto) 16.1 % (10.0-50.0); Mean Corpuscular Volume 76.5 fL (80.0-100.0); Monocytes % (auto) 7.7 % (0.0-12.0); Neutrophils % (auto) 70.2 % (37.0-80.0); Platelet Count (auto) 263 10^3/uL (140-450); White Blood Cell 7.4 10^3/uL (4.4-10.8)
[2024-08-19 04:23] LABS: Potassium 4.2 mmol/L (3.5-5.1); Sodium 143 mmol/L (136-145)
[2024-08-19 04:24] LABS: Anion Gap 10 (5-15)
[2024-08-19 04:29] LABS: BUN/Creatinine Ratio 40.7 (10.0-20.0); Blood Urea Nitrogen 22 mg/dL (9-23); Glucose 103 mg/dL (74-106)
[2024-08-19 04:41] LABS: Carbon Dioxide 19 mmol/L (20-31); Chloride 114 mmol/L (98-107)
--- NOTE | 2024-08-19 08:49 | DVHPN2 ---
Reviewed: Care Plan, H&P, Labs, Medications, Previous Orders, Radiology Changes from previous H/P or p: No Changes Objective Vitals Vital Signs Date Time Temp Pulse Resp B/P (MAP) Pulse Ox O2 Delivery O2 Flow Rate FiO2 08/19/24 08:25 83/58 08/19/24 08:00 108 08/19/24 08:00 13 100 08/19/24 07:45 Nasal Cannula* 2 28 08/19/24 07:36 97.7 97.7 Intake/Output Intake and Output 08/19/24 07:00 Intake Total 2885.00 ml Output Total 2850 ml Balance 35.00 ml Intake Oral 120 ml IV Total 2765.00 ml Output Urine Total 2850 ml # Bowel Movements 4 Medications Current Medications Medications Dose Ordered Sig/Marlen Route Start Time Stop Time Status Last Admin Dose Admin Ceftriaxone Sodium 50 ml @ 100 mls/hr Q24H IV 08/19/24 01:00 08/19/24 01:45 100 MLS/HR Ondansetron HCl 4 mg Q4HP PRN IV 08/18/24 01:30 Enoxaparin Sodium 40 mg DAILY SC 08/18/24 10:00 08/18/24 10:00 40 MG Carbidopa/Levodopa 1 tab TID PO 08/18/24 06:00 08/19/24 06:57 1 TAB Quetiapine Fumarate 25 mg BID PO 08/18/24 10:00 08/18/24 23:28 25 MG Sodium Chloride 1,000 ml @ 125 mls/hr Q8H IV 08/18/24 14:30 08/19/24 07:50 125 MLS/HR Norepinephrine Bitartrate 250 ml @ 3.75 mls/hr Q24H IV 08/18/24 15:00 08/18/24 15:00 3.75 MLS/HR Tramadol HCl 50 mg Q8HPRN PRN PO 08/18/24 21:15 08/19/24 06:57 50 MG Laboratory Results Laboratory Tests 08/19/24 03:52 Chemistry Test 08/19/24 03:52 Calcium Level 9.0 mg/dL (8.7-10.4) Magnesium Level 1.8 mg/dL (1.6-2.6) Urinalysis Test 08/17/24 23:06 Urine Color Yellow (Yellow) Urine Clarity Turbid (Clear) H Urine pH 5.0 (5.0-9.0) Urine Specific [place] 1.018 (1.001-1.035) Urine Protein Trace (Negative) H Urine Ketones Negative (Negative) Urine Blood Trace /uL (Negative) H Urine Nitrite Negative (Negative) Urine Bilirubin Negative (Negative) Urine Urobilinogen 3 mg/dL (Negative) H Urine Leukocyte Esterase 3+ /uL (Negative) Urine RBC 6 /hpf (0 - 4) Urine WBC Clumps Present /hpf (None Seen) Urine Microscopic WBC 380 /HPF (0-5) H Urine Squamous Epithelial Cells Few /hpf (<5) Urine Bacteria Many /hpf (None Seen) H Urine Hyaline Casts Many /lpf (0 - 2) Urine Mucus Few (None Seen) Urine Glucose Normal mg/dL (Normal) Microbiology Microbiology Date/Time Source Procedure Growth Status 08/18/24 01:05 Blood Blood Culture - Preliminary NO GROWTH AFTER 24 HOURS OF INCUBATION. Resulted Labs and/or images reviewed: Labs reviewed by me, Image(s) reviewed by me Assessment/Plan Assessment/Plan Sepsis secondary to tract infection: Blood cultures negative, urine cultures pending, Acute Metabolic encephalopathy Acute hypotension: Levophed Acute urinary tract infection continue: Rocephin Acute lactic acidosis Chronically bedridden dementia Parkinson's: Sinemet Depression: Seroquel Hypertension Hypothyroidism Dementia Type 2 diabetes Moderate obesity Patient is hospice revoked Time spent 70 minutes Patient is full code Patient ICU admission Seen in ER bed 4. Advanced care planning time 20 mts Patient's daughter Juanita [phone] at bedside Patient is hospice revoked in September 2023 Currently on home health Plan discussed with: Patient My Orders Orders - MOMO JAMESON MD Procedure Category Date Status Time Sodium Chloride 0.9% PHA 08/18/24 In Process 14:30 Norepinephrine 8 PHA 08/18/24 In Process Mg/250ml Kit 15:00 Transfer Orders XFER 08/18/24 Transmitted 14:58 * Wound Consult CONS 08/18/24 Transmitted Date of Service: August 19, 2024 Billing Provider: MOMO JAMESON MD Common Visit Codes: [id number] INP/OBS CARE(HIGH) MOMO JAMESON MD August 19, 2024 08:49
[2024-08-19] MEDS ORDERED: DEXTROSE (50%) 50ML SYRG IV PRN (09:30)
[2024-08-19] MEDS: LISINOPRIL 20 MG TAB PO SCH (10:00)
[2024-08-19] MEDS: ASPirin 81 mg TAB PO SCH (10:29)
[2024-08-19] MEDS: LEVOTHYROXINE SODIUM 25 MCG TAB PO ONE (10:30)
[2024-08-19] MEDS: PANTOPRAZOLE 40 MG/10 ML VIAL INJ IV SCH (10:31)
[2024-08-19] MEDS: InsuLIN REG 1unit/0.01ml Soln (100units/ml) SC SCH ×2 (11:30→22:30)
[2024-08-19] MEDS: ACCU-CHEK COMFORT CURVE STRIP VI SCH (11:53)
[2024-08-20] VITALS (7 sets, daily range): BP systolic 137–154; BP diastolic 65–79; PULSE 66–94; RESP 16–19; TEMP 97.5–98.7; O2SAT 90–94
[2024-08-20] MEDS: QUEtiapine FUMARATE 25 MG TAB ONE (00:29)
[2024-08-20] MEDS: CARBIDOPA W LEVODOPA 25/100mg TABLET ONE (00:30)
[2024-08-20] MEDS: cefTRIAXone 1GM/50ML D5W 50 ML IV ONE (00:55)
[2024-08-20] MEDS: LEVOTHYROXINE SODIUM 25 MCG TAB PO SCH (06:00)
--- NOTE | 2024-08-20 08:18 | DVHPN2 ---
Reviewed: Care Plan, H&P, Labs, Medications, Previous Orders, Radiology Changes from previous H/P or p: No Changes Objective Vitals Vital Signs Date Time Temp Pulse Resp B/P (MAP) Pulse Ox O2 Delivery O2 Flow Rate FiO2 08/20/24 05:00 97.7 66 16 139/65 (89) 90 97.7 08/19/24 19:30 Nasal Cannula* 2 28 Intake/Output Intake and Output 08/20/24 07:00 Intake Total 2451.5625 ml Output Total 1100 ml Balance 1351.5625 ml Intake Oral 0 ml IV Total 2451.5625 ml Output Urine Total 1100 ml Medications Current Medications Medications Dose Ordered Sig/Marlen Route Start Time Stop Time Status Last Admin Dose Admin Ceftriaxone Sodium 50 ml @ 100 mls/hr Q24H IV 08/19/24 01:00 08/20/24 00:52 100 MLS/HR Ondansetron HCl 4 mg Q4HP PRN IV 08/18/24 01:30 Enoxaparin Sodium 40 mg DAILY SC 08/18/24 10:00 08/19/24 10:31 40 MG Carbidopa/Levodopa 1 tab TID PO 08/18/24 06:00 08/20/24 06:00 1 TAB Quetiapine Fumarate 25 mg BID PO 08/18/24 10:00 08/20/24 00:29 25 MG Sodium Chloride 1,000 ml @ 125 mls/hr Q8H IV 08/18/24 14:30 08/19/24 23:30 125 MLS/HR Norepinephrine Bitartrate 250 ml @ 3.75 mls/hr Q24H IV 08/18/24 15:00 08/18/24 15:00 3.75 MLS/HR Tramadol HCl 50 mg Q8HPRN PRN PO 08/18/24 21:15 08/19/24 06:57 50 MG Lisinopril 40 mg DAILY PO 08/19/24 10:00 Levothyroxine Sodium 137 mcg QAM@0600 PO 08/20/24 06:00 08/20/24 06:00 137 MCG Pantoprazole Sodium 40 mg DAILY IV 08/19/24 10:00 08/19/24 10:31 40 MG Aspirin 81 mg DAILY PO 08/19/24 10:00 08/19/24 10:29 81 MG Diagnostic Test (Pha) 1 strip ACHS 08/19/24 11:30 08/20/24 06:57 1 STRIP Insulin Human Regular HS SC 08/19/24 22:00 Insulin Human Regular AC SC 08/19/24 11:30 Dextrose 50 ml UD PRN IV 08/19/24 09:30 Laboratory Results Laboratory Tests 08/19/24 03:52 Urinalysis Test 08/17/24 23:06 Urine Color Yellow (Yellow) Urine Clarity Turbid (Clear) H Urine pH 5.0 (5.0-9.0) Urine Specific [place] 1.018 (1.001-1.035) Urine Protein Trace (Negative) H Urine Ketones Negative (Negative) Urine Blood Trace /uL (Negative) H Urine Nitrite Negative (Negative) Urine Bilirubin Negative (Negative) Urine Urobilinogen 3 mg/dL (Negative) H Urine Leukocyte Esterase 3+ /uL (Negative) Urine RBC 6 /hpf (0 - 4) Urine WBC Clumps Present /hpf (None Seen) Urine Microscopic WBC 380 /HPF (0-5) H Urine Squamous Epithelial Cells Few /hpf (<5) Urine Bacteria Many /hpf (None Seen) H Urine Hyaline Casts Many /lpf (0 - 2) Urine Mucus Few (None Seen) Urine Glucose Normal mg/dL (Normal) Microbiology Microbiology Date/Time Source Procedure Growth Status 08/18/24 01:05 Blood Blood Culture - Preliminary NO GROWTH AFTER 48 HOURS OF INCUBATION. Resulted 08/17/24 23:06 Voided Urine Urine Culture - Preliminary Resulted Labs and/or images reviewed: Labs reviewed by me, Image(s) reviewed by me Assessment/Plan Assessment/Plan Sepsis secondary to urinary tract infection: Blood cultures negative, urine cultures mixed, repeat urine cultures pending continue Rocephin Acute Metabolic encephalopathy Acute hypotension: Resolved with Levophed drip Acute urinary tract infection continue: Rocephin Acute lactic acidosis Chronically bedridden dementia Parkinson's: Sinemet Depression: Seroquel Hypertension Hypothyroidism Dementia Type 2 diabetes Moderate obesity Patient is hospice revoked Time spent 70 minutes Patient is full code Patient's daughter Juanita [phone] at bedside Patient is hospice revoked in September 2023 Currently on home health Plan discussed with: Patient My Orders Orders - MOMO JAMESON MD Procedure Category Date Status Time Lisinopril Tablet PHA 08/19/24 In Process (Zestril Tablet) 10:00 Levothyroxine Tablet PHA 08/20/24 In Process (Synthroid Tablet) 06:00 Pantoprazole PHA 08/19/24 In Process (Protonix) 10:00 Aspirin Tablet PHA 08/19/24 In Process 10:00 Glucose Blood PHA 08/19/24 In Process (Accu-Chek Comfort 11:30 Insulin R (Human) PHA 08/19/24 In Process (Insulin R) 22:00 Insulin R (Human) PHA 08/19/24 In Process (Insulin R) 11:30 Dextrose 50% Syringe PHA 08/19/24 In Process 09:30 Mechanical Soft Diet DIET 08/19/24 Transmitted Breakfast Clostridium Difficile GISSELLE 08/19/24 In Process Toxin 12:22 * Dietary Consult CONS 08/19/24 Transmitted 15:30 Specialty Bed Mattress ORDERS 08/19/24 Transmitted 15:30 Date of Service: August 20, 2024 Billing Provider: MOMO JAMESON MD Common Visit Codes: [id number] CARE 30-74 MIN MOMO JAMESON MD August 20, 2024 08:18
[2024-08-20] MEDS ORDERED: ONDANSETRON HCL 4 MG/2 ML VIAL IV PRN (10:30)
[2024-08-20] MEDS ORDERED: traMADol HCL 50 MG TAB PO PRN (10:30)
[2024-08-20 10:46] LABS: Urine Bacteria None Seen /hpf (None Seen)
[2024-08-20 10:55] LABS: Urine Blood Negative /uL (Negative); Urine Clarity Clear (Clear); Urine Color Colorless (Yellow); Urine Protein, UAD Negative (Negative); Urine Specific Gravity 1.006 (1.001-1.035); Urine Squamous Epithelial Cell None Seen /hpf (<5); Urine Urobilinogen Normal (Negative); Urine WBC 4 /HPF (0-5)
[2024-08-20] MEDS: SODIUM CHLORIDE 0.9% 1,000 ML IV SCH (10:57)
[2024-08-20] MEDS: cefTRIAXone 1GM/50ML D5W 50 ML IV SCH (10:57)
[2024-08-20] MEDS: ACCU-CHEK COMFORT CURVE STRIP VI SCH (12:12)
[2024-08-20] MEDS: InsuLIN REG 1unit/0.01ml Soln (100units/ml) SC SCH ×2 (12:13→21:57)
[2024-08-20] MEDS ORDERED: ACETAMINOPHEN 500 MG TAB or CAP PO PRN (13:15)
[2024-08-20] MEDS: ERTAPENEM SOD INJ 1 GM in SODIUM CHL 0.9% 50 ML IV ONE (14:00)
[2024-08-20] MEDS: CARBIDOPA W LEVODOPA 25/100mg TABLET PO SCH (14:55)
[2024-08-20] MEDS: ACETAMINOPHEN 325 MG TAB PO PRN (14:56)
[2024-08-20] MEDS: QUEtiapine FUMARATE 25 MG TAB PO SCH (21:56)
[2024-08-21] VITALS (8 sets, daily range): BP systolic 143–178; BP diastolic 46–90; PULSE 68–101; RESP 18–19; TEMP 97.7–98.3; O2SAT 95–98
[2024-08-21] MEDS: LEVOTHYROXINE SODIUM 25 MCG TAB PO SCH (06:00)
[2024-08-21 07:21] LABS: Basophils # (auto) 0 10 ^3/uL (0-0.2); Basophils % (auto) 0.8 % (0.0-2.0); Eosinophils # (auto) 0.3 10 ^3/uL (0-0.8); Eosinophils % (auto) 6.8 % (0.0-7.0); Hematocrit 34.6 % (36.0-46.0); Hemoglobin 10.8 g/dL (12.2-16.2); Lymphocytes # (auto) 1.2 10 ^3/uL (0.4-5.4); Lymphocytes % (auto) 26.2 % (10.0-50.0); Mean Corpuscular Hemoglobin 24.1 pg (28.0-32.0); Mean Corpuscular Hgb Conc. 31.1 g/dL (32.0-36.0); Mean Corpuscular Volume 77.6 fL (80.0-100.0); Monocytes # (auto) 0.6 10 ^3/uL (0-1.3); Monocytes % (auto) 11.8 % (0.0-12.0); Neutrophils # (auto) 2.5 10 ^3/uL (1.6-8.6); Neutrophils % (auto) 54.4 % (37.0-80.0); Nucleated Red Blood Cells % 0.1 %; Platelet Count (auto) 252 10^3/uL (140-450); Red Blood Cells 4.46 10^6/uL (4.0-5.20); Red Cell Distribution Width 15.3 % (11.8-14.3); White Blood Cell 4.7 10^3/uL (4.4-10.8)
[2024-08-21 07:42] LABS: Albumin 3.5 g/dL (3.2-4.8); Alkaline Phosphatase 108 U/L (46-116); Anion Gap 11 (5-15); BUN/Creatinine Ratio 18.2 (10.0-20.0); Calcium 9.2 mg/dL (8.7-10.4); Potassium 4.1 mmol/L (3.5-5.1); Sodium 144 mmol/L (136-145); Total Protein 6.8 g/dL (5.7-8.2)
[2024-08-21 07:46] LABS: Alanine Aminotransferase < 9 U/L (7-40); Aspartate Aminotransferase 12 U/L (13-40); Bilirubin, Total 0.3 mg/dL (0.2-1.0); Blood Urea Nitrogen 8 mg/dL (9-23); Carbon Dioxide 20 mmol/L (20-31); Chloride 113 mmol/L (98-107); Glucose 67 mg/dL (74-106)
--- NOTE | 2024-08-21 08:04 | DVHPN2 ---
Reviewed: Care Plan, H&P, Labs, Medications, Previous Orders, Radiology Changes from previous H/P or p: No Changes Objective Vitals Vital Signs Date Time Temp Pulse Resp B/P (MAP) Pulse Ox O2 Delivery O2 Flow Rate FiO2 08/21/24 05:00 97.8 101 18 150/90 (110) 95 97.8 08/20/24 20:00 Nasal Cannula* 2 28 Intake/Output Intake and Output 08/21/24 07:00 Intake Total 1000 ml Output Total 3900 ml Balance -2900 ml Intake Oral 900 ml IV Total 100 ml Output Urine Total 3900 ml # Bowel Movements 4 Medications Current Medications Medications Dose Ordered Sig/Marlen Route Start Time Stop Time Status Last Admin Dose Admin Sodium Chloride 1,000 ml @ 100 mls/hr Q10H IV 08/20/24 08:30 08/20/24 21:56 100 MLS/HR Ondansetron HCl 4 mg Q4HP PRN IV 08/20/24 10:30 Enoxaparin Sodium 40 mg DAILY SC 08/21/24 10:00 Carbidopa/Levodopa 1 tab TID PO 08/20/24 14:00 08/21/24 05:56 1 TAB Quetiapine Fumarate 25 mg BID PO 08/20/24 22:00 08/20/24 21:56 25 MG Lisinopril 40 mg DAILY PO 08/21/24 10:00 Levothyroxine Sodium 137 mcg QAM@0600 PO 08/21/24 06:00 08/21/24 06:00 137 MCG Pantoprazole Sodium 40 mg DAILY IV 08/21/24 10:00 Aspirin 81 mg DAILY PO 08/21/24 10:00 Diagnostic Test (Pha) 1 strip ACHS 08/20/24 11:30 08/21/24 06:00 1 STRIP Insulin Human Regular HS SC 08/20/24 22:00 Insulin Human Regular AC SC 08/20/24 11:30 Dextrose 50 ml UD PRN IV 08/20/24 10:30 Ertapenem 1 gm/ Sodium Chloride 50 ml @ 100 mls/hr DAILY IV 08/21/24 10:00 Acetaminophen 650 mg Q6HP PRN PO 08/20/24 14:00 08/21/24 02:34 650 MG Laboratory Results Laboratory Tests 08/21/24 05:04 Chemistry Test 08/21/24 05:04 Albumin 3.5 g/dL (3.2-4.8) Calcium Level 9.2 mg/dL (8.7-10.4) Total Protein 6.8 g/dL (5.7-8.2) LFT Test 08/21/24 05:04 Alanine Aminotransferase (ALT) < 9 U/L (7-40) Alkaline Phosphatase 108 U/L (46-116) Aspartate Amino Transferase (AST) 12 U/L (13-40) L Total Bilirubin 0.3 mg/dL (0.2-1.0) Urinalysis Test 08/17/24 23:06 08/20/24 10:40 Urine WBC Clumps Present /hpf (None Seen) Urine Hyaline Casts Many /lpf (0 - 2) Urine Mucus Few (None Seen) Urine Color Colorless (Yellow) Urine Clarity Clear (Clear) Urine pH 6.0 (5.0-9.0) Urine Specific [place] 1.006 (1.001-1.035) Urine Protein Negative (Negative) Urine Ketones Negative (Negative) Urine Blood Negative /uL (Negative) Urine Nitrite Negative (Negative) Urine Bilirubin Negative (Negative) Urine Urobilinogen Normal mg/dL (Negative) Urine Leukocyte Esterase 1+ /uL (Negative) Urine RBC 1 /hpf (0 - 4) Urine Microscopic WBC 4 /HPF (0-5) Urine Squamous Epithelial Cells None seen /hpf (<5) Urine Bacteria None seen /hpf (None Seen) Urine Glucose Normal mg/dL (Normal) Microbiology Microbiology Date/Time Source Procedure Growth Status 08/19/24 12:53 Stool Clostridium difficile Toxin Assay - Final Complete 08/18/24 01:05 Blood Blood Culture - Preliminary NO GROWTH AFTER 72 HOURS OF INCUBATION. Resulted 08/17/24 23:06 Voided Urine Urine Culture - Final Escherichia coli - ESBL Complete Labs and/or images reviewed: Labs reviewed by me, Image(s) reviewed by me Assessment/Plan Assessment/Plan Sepsis secondary to urinary tract infection: Blood cultures negative, urine cultures growing ESBL E coli DC Rocephin start Invanz 1 g IV daily for two weeks Acute Metabolic encephalopathy Acute hypotension secondary to sepsis: Resolved with Levophed drip Acute urinary tract infection continue: Invanz Acute lactic acidosis Chronically bedridden Dementia Parkinson's: Sinemet Depression: Seroquel Hypertension Hypothyroidism Dementia Type 2 diabetes Moderate obesity Patient is hospice revoked Time spent 50 minutes Patient is full code Patient's daughter Juanita [phone] at bedside Patient is hospice revoked in September 2023 Currently on home health Plan discussed with: Patient My Orders Orders - MOMO JAMESON MD Procedure Category Date Status Time Sodium Chloride 0.9% PHA 08/20/24 In Process 08:30 Urine Bacterial GISSELLE 08/20/24 In Process Culture 10:52 Lisinopril Tablet PHA 08/21/24 In Process (Zestril Tablet) 10:00 Levothyroxine Tablet PHA 08/21/24 In Process (Synthroid Tablet) 06:00 Pantoprazole PHA 08/21/24 In Process (Protonix) 10:00 Aspirin Tablet PHA 08/21/24 In Process 10:00 Glucose Blood PHA 08/20/24 In Process (Accu-Chek Comfort 11:30 Insulin R (Human) PHA 08/20/24 In Process (Insulin R) 22:00 Dextrose 50% Syringe PHA 08/20/24 In Process 10:30 Insulin R (Human) PHA 08/20/24 In Process (Insulin R) 11:30 Ertapenem Sod Inj PHA 08/21/24 In Process (Invanz) 10:00 Acetaminophen Tablet PHA 08/20/24 In Process (Tylenol Tablet) 14:00 Covid19 Antigen [facility] 08/21/24 Logged Pt Request For Service PT 08/21/24 Logged 07:55 Date of Service: August 21, 2024 Billing Provider: MOMO JMAESON MD Common Visit Codes: [id number] INP/OBS CARE(HIGH) MOMO JAMESON MD August 21, 2024 08:04
[2024-08-21] MEDS: LISINOPRIL 20 MG TAB PO SCH (08:21)
[2024-08-21] MEDS: PANTOPRAZOLE 40 MG/10 ML VIAL INJ IV SCH (09:41)
[2024-08-21] MEDS: ASPirin 81 mg TAB PO SCH (09:41)
[2024-08-21] MEDS: ERTAPENEM SOD INJ 1 GM in SODIUM CHL 0.9% 50 ML IV SCH (09:42)
[2024-08-21] MEDS: ENOXAPARIN SOD 40 MG/0.4 ML SYRINGE SC SCH (09:43)
[2024-08-21 16:25] LABS: COVID19 ANTIGEN SOFIA FIA POSITIVE (NEGATIVE)
[2024-08-21] MEDS: amLODIPine BESYLATE 5 MG TAB PO ONE (18:37)
[2024-08-21] MEDS: hydrALAZINE HCL 20 MG/ML VL IV PRN (22:49)
[2024-08-21] MEDS: DEXTROSE (50%) 50ML SYRG IV PRN (22:50)
[2024-08-22] VITALS (8 sets, daily range): BP systolic 119–168; BP diastolic 47–103; PULSE 82–107; RESP 14–18; TEMP 97.3–98.4; O2SAT 97–99
--- NOTE | 2024-08-22 08:18 | DVHPN2 ---
Reviewed: Care Plan, H&P, Labs, Medications, Previous Orders, Radiology Changes from previous H/P or p: No Changes Objective Vitals Vital Signs Date Time Temp Pulse Resp B/P (MAP) Pulse Ox O2 Delivery O2 Flow Rate FiO2 08/22/24 05:00 98.3 89 16 168/71 (103) 99 98.3 08/21/24 20:00 Nasal Cannula* 2 28 Intake/Output Intake and Output 08/22/24 07:00 Intake Total 1255 ml Output Total 2600 ml Balance -1345 ml Intake Oral 305 ml IV Total 950 ml Output Urine Total 2600 ml # Bowel Movements 3 Medications Current Medications Medications Dose Ordered Sig/Marlen Route Start Time Stop Time Status Last Admin Dose Admin Sodium Chloride 1,000 ml @ 100 mls/hr Q10H IV 08/20/24 08:30 08/21/24 09:45 100 MLS/HR Ondansetron HCl 4 mg Q4HP PRN IV 08/20/24 10:30 Enoxaparin Sodium 40 mg DAILY SC 08/21/24 10:00 08/21/24 09:43 40 MG Carbidopa/Levodopa 1 tab TID PO 08/20/24 14:00 08/22/24 06:20 1 TAB Quetiapine Fumarate 25 mg BID PO 08/20/24 22:00 08/21/24 09:41 25 MG Lisinopril 40 mg DAILY PO 08/21/24 10:00 08/21/24 08:21 40 MG Levothyroxine Sodium 137 mcg QAM@0600 PO 08/21/24 06:00 08/22/24 06:20 137 MCG Pantoprazole Sodium 40 mg DAILY IV 08/21/24 10:00 08/21/24 09:41 40 MG Aspirin 81 mg DAILY PO 08/21/24 10:00 08/21/24 09:41 81 MG Diagnostic Test (Pha) 1 strip ACHS 08/20/24 11:30 08/22/24 06:20 1 STRIP Insulin Human Regular HS SC 08/20/24 22:00 Insulin Human Regular AC SC 08/20/24 11:30 Dextrose 50 ml UD PRN IV 08/20/24 10:30 08/21/24 22:50 50 ML Ertapenem 1 gm/ Sodium Chloride 50 ml @ 100 mls/hr DAILY IV 08/21/24 10:00 08/21/24 09:42 100 MLS/HR Acetaminophen 650 mg Q6HP PRN PO 08/20/24 14:00 08/21/24 02:34 650 MG Amlodipine Besylate 5 mg DAILY PO 08/22/24 10:00 Hydralazine HCl 10 mg Q6HP PRN IV 08/21/24 22:30 08/21/24 22:49 10 MG Laboratory Results Laboratory Tests 08/21/24 05:04 Urinalysis Test 08/17/24 23:06 08/20/24 10:40 Urine WBC Clumps Present /hpf (None Seen) Urine Hyaline Casts Many /lpf (0 - 2) Urine Mucus Few (None Seen) Urine Color Colorless (Yellow) Urine Clarity Clear (Clear) Urine pH 6.0 (5.0-9.0) Urine Specific [place] 1.006 (1.001-1.035) Urine Protein Negative (Negative) Urine Ketones Negative (Negative) Urine Blood Negative /uL (Negative) Urine Nitrite Negative (Negative) Urine Bilirubin Negative (Negative) Urine Urobilinogen Normal mg/dL (Negative) Urine Leukocyte Esterase 1+ /uL (Negative) Urine RBC 1 /hpf (0 - 4) Urine Microscopic WBC 4 /HPF (0-5) Urine Squamous Epithelial Cells None seen /hpf (<5) Urine Bacteria None seen /hpf (None Seen) Urine Glucose Normal mg/dL (Normal) Microbiology Microbiology Date/Time Source Procedure Growth Status 08/20/24 10:40 Urine - [place] Urine Culture - Preliminary Resulted 08/19/24 12:53 Stool Clostridium difficile Toxin Assay - Final Complete 08/18/24 01:05 Blood Blood Culture - Preliminary NO GROWTH AFTER 72 HOURS OF INCUBATION. Resulted Labs and/or images reviewed: Labs reviewed by me, Image(s) reviewed by me Assessment/Plan Assessment/Plan Sepsis secondary to urinary tract infection: Blood cultures negative, urine cultures growing ESBL E coli continue Invanz 1 g IV daily for two weeks Incidental COVID positive patient on 2 L of oxygen by nasal cannula, chest x-ray negative, vitamin-C vitamin D3 zinc multivitamin Acute Metabolic encephalopathy Acute hypotension secondary to sepsis: Resolved with Levophed drip Acute urinary tract infection continue: Invanz Acute lactic acidosis Chronically bedridden Dementia Parkinson's: Sinemet Depression: Seroquel Hypertension Hypothyroidism Dementia Type 2 diabetes Moderate obesity Patient is hospice revoked Time spent 50 minutes Patient is full code Patient's daughter Juanita [phone] at bedside Discussed with the patient's daughter and the patient is being discharged to residential facility for IV antibiotics for two weeks for complicated UTI Plan discussed with: Patient My Orders Orders - MOMO JAMESON MD Procedure Category Date Status Time Insert Midline ORDERS 08/21/24 Transmitted 12:44 Date of Service: August 22, 2024 Billing Provider: MOMO JAMESON MD Common Visit Codes: [id number] INP/OBS CARE(HIGH) MOMO JAMESON MD August 22, 2024 08:18
--- NOTE | 2024-08-22 08:38 | DVHDS2 ---
Discharge Summary Date of Admission August 19, 2024 at 01:19 Date of Discharge: August 22, 2024 Admitting Diagnosis Generalized weakness and altered mental status Wounds: None Labs/Diagnostic Data: Laboratory Results Test 08/22/24 05:31 08/21/24 15:30 08/21/24 05:04 08/20/24 10:40 POC Glucose 70 mg/dl (70-106) SARS-CoV-2 Antigen (Rapid) Positive (NEGATIVE) White Blood Count 4.7 10^3/uL (4.4-10.8) Red Blood Count 4.46 10^6/uL (4.0-5.20) Hemoglobin 10.8 g/dL (12.2-16.2) Hematocrit 34.6 % (36.0-46.0) Mean Corpuscular Volume 77.6 fL (80.0-100.0) Mean Corpuscular Hemoglobin 24.1 pg (28.0-32.0) Mean Corpuscular Hemoglobin Concent 31.1 g/dL (32.0-36.0) Red Cell Distribution Width 15.3 % (11.8-14.3) Platelet Count 252 10^3/uL (140-450) Mean Platelet Volume 8.8 fL (6.9-10.8) Neutrophils (%) (Auto) 54.4 % (37.0-80.0) Lymphocytes (%) (Auto) 26.2 % (10.0-50.0) Monocytes (%) (Auto) 11.8 % (0.0-12.0) Eosinophils (%) (Auto) 6.8 % (0.0-7.0) Basophils (%) (Auto) 0.8 % (0.0-2.0) Neutrophils # (Auto) 2.5 10 ^3/uL (1.6-8.6) Lymphocytes # (Auto) 1.2 10 ^3/uL (0.4-5.4) Monocytes # (Auto) 0.6 10 ^3/uL (0-1.3) Eosinophils # (Auto) 0.3 10 ^3/uL (0-0.8) Basophils # (Auto) 0 10 ^3/uL (0-0.2) Nucleated Red Blood Cells 0.1 % Sodium Level 144 mmol/L (136-145) Potassium Level 4.1 mmol/L (3.5-5.1) Chloride Level 113 mmol/L (98-107) Carbon Dioxide Level 20 mmol/L (20-31) Anion Gap 11 (5-15) Blood Urea Nitrogen 8 mg/dL (9-23) Creatinine 0.44 mg/dL (0.550-1.02) Glomerular Filtration Rate Calc 99 mL/min (>90) BUN/Creatinine Ratio 18.2 (10.0-20.0) Serum Glucose 67 mg/dL (74-106) Calcium Level 9.2 mg/dL (8.7-10.4) Total Bilirubin 0.3 mg/dL (0.2-1.0) Aspartate Amino Transferase (AST) 12 U/L (13-40) Alanine Aminotransferase (ALT) < 9 U/L (7-40) Alkaline Phosphatase 108 U/L (46-116) Total Protein 6.8 g/dL (5.7-8.2) Albumin 3.5 g/dL (3.2-4.8) Urine Color Colorless (Yellow) Urine Clarity Clear (Clear) Urine pH 6.0 (5.0-9.0) Urine Specific [place] 1.006 (1.001-1.035) Urine Protein Negative (Negative) Urine Ketones Negative (Negative) Urine Blood Negative /uL (Negative) Urine Nitrite Negative (Negative) Urine Bilirubin Negative (Negative) Urine Urobilinogen Normal mg/dL (Negative) Urine Leukocyte Esterase 1+ /uL (Negative) Urine RBC 1 /hpf (0 - 4) Urine Microscopic WBC 4 /HPF (0-5) Urine Squamous Epithelial Cells None seen /hpf (<5) Urine Bacteria None seen /hpf (None Seen) Urine Glucose Normal mg/dL (Normal) Test 08/19/24 03:52 08/17/24 23:06 08/17/24 20:06 Magnesium Level 1.8 mg/dL (1.6-2.6) Urine WBC Clumps Present /hpf (None Seen) Urine Hyaline Casts Many /lpf (0 - 2) Urine Mucus Few (None Seen) Lactic Acid Level 1.3 mmol/L (0.4-2.0) Lipase 22 U/L (12-53) Other Laboratory Tests 08/21/24 05:04 Brief Hx & Hospital Course: Patient is hospice revoked 79-year-old female with a history of hypertension dementia Parkinson's depression hypothyroidism chronically bed-bound burden by family for altered mental status and generalized weakness found to have urinary tract infection treated with Rocephin cultures came positive for ESBL E coli antibiotic changed to Invanz 1 g IV daily for two weeks blood cultures negative COVID test positive chest x-ray negative patient on 2 L of oxygen. Incidental COVID. Placed on vitamin-C zinc vitamin D3 and multivitamin. Patient being discharged [facility] for IV antibiotics for two weeks for complicated UTI plan is agreeable with the patient's daughter Zonia who is at the bedside Consults/Reason for consult None Operations or Procedures None Condition at Discharge: Poor Final Diagnosis/Problems List Sepsis secondary to urinary tract infection: Blood cultures negative, urine cultures growing ESBL E coli continue Invanz 1 g IV daily for two weeks Incidental COVID positive patient on 2 L of oxygen by nasal cannula, chest x-ray negative, vitamin-C vitamin D3 zinc multivitamin Acute Metabolic encephalopathy Acute hypotension secondary to sepsis: Resolved with Levophed drip Acute urinary tract infection continue: Invanz Acute lactic acidosis Chronically bedridden Dementia Parkinson's: Sinemet Depression: Seroquel Hypertension Hypothyroidism Dementia Type 2 diabetes Discharge Disposition: Group Home Facility Discharge Instruct/Medications Diet: Cardiac 2g Na,low cholest Activity: Light activity Follow Up/Referral: Follow up with the assisted Dr Medications: See list Invanz 1 g IV daily for two weeks for ESBL E coli UTI 39 (Time time taken for discharge summary 39 minutes) Discharge Statement: "Patient was advised to return to the ER or call 911 if any headaches, dizziness, shortness of breath, chest pain, abdominal pain, bleeding, fevers, or worsening of medical condition. Patient was counseled about treatment plan, medications, possible side effects, patientverbalized understanding. All questions were answered to the best of my ability. This discharge took greater then 30 minutes in planning, reviewing documentation, counseling the patient, and discussing with other team members." ASSESSMENT ASSESSMENT Hospital Course Marginally improved Assessment Sepsis secondary to urinary tract infection: Blood cultures negative, urine cultures growing ESBL E coli continue Invanz 1 g IV daily for two weeks Incidental COVID positive patient on 2 L of oxygen by nasal cannula, chest x-ray negative, vitamin-C vitamin D3 zinc multivitamin Acute Metabolic encephalopathy Acute hypotension secondary to sepsis: Resolved with Levophed drip Acute urinary tract infection continue: Invanz Acute lactic acidosis Chronically bedridden Dementia Parkinson's: Sinemet Depression: Seroquel Hypertension Hypothyroidism Dementia Type 2 diabetes Date of Service: August 22, 2024 Billing Provider: MOMO JAMESON MD Common Visit Codes: 62543-QXG/[id number] DISCH DAY >30min MOMO JAMESON MD August 22, 2024 08:38
[2024-08-22] MEDS: MULTIPLE VITAMIN TAB PO SCH (09:30)
[2024-08-22] MEDS: ZINC SULFATE 220mg CAP or TAB PO SCH (09:30)
[2024-08-22] MEDS: ASCORBIC ACID 500 MG TAB PO SCH (09:31)
[2024-08-22] MEDS: CHOLECALCIFEROL (VITD3) 1,000UNIT=25mCg TAB PO SCH (09:31)
[2024-08-22] MEDS: amLODIPine BESYLATE 5 MG TAB PO SCH (09:37)
[2024-08-23] VITALS (9 sets, daily range): BP systolic 113–159; BP diastolic 52–81; PULSE 74–108; RESP 17–18; TEMP 97.2–98.2; O2SAT 95–99
[2024-08-23] MEDS ORDERED: LORazepam 0.5 MG TAB PO PRN (03:15)
[2024-08-23] MEDS: LEVOTHYROXINE SODIUM 112 MCG TAB PO SCH (06:00)
[2024-08-23] MEDS ORDERED: GLUCAGON EMERG KIT 1mg/1ml IM PRN (07:30)
--- NOTE | 2024-08-23 08:01 | DVHPN2 ---
Reviewed: Care Plan, H&P, Labs, Medications, Previous Orders, Radiology Changes from previous H/P or p: No Changes Objective Vitals Vital Signs Date Time Temp Pulse Resp B/P (MAP) Pulse Ox O2 Delivery O2 Flow Rate FiO2 08/23/24 05:00 97.8 90 18 123/79 (94) 95 97.8 08/22/24 20:00 Nasal Cannula* 2 28 Intake/Output Intake and Output 08/23/24 07:00 Intake Total 890 ml Output Total 850 ml Balance 40 ml Intake Oral 240 ml IV Total 650 ml Output Urine Total 850 ml Medications Current Medications Medications Dose Ordered Sig/Marlen Route Start Time Stop Time Status Last Admin Dose Admin Sodium Chloride 1,000 ml @ 100 mls/hr Q10H IV 08/20/24 08:30 08/22/24 13:48 100 MLS/HR Ondansetron HCl 4 mg Q4HP PRN IV 08/20/24 10:30 Enoxaparin Sodium 40 mg DAILY SC 08/21/24 10:00 08/22/24 09:39 40 MG Carbidopa/Levodopa 1 tab TID PO 08/20/24 14:00 08/22/24 22:51 1 TAB Quetiapine Fumarate 25 mg BID PO 08/20/24 22:00 08/22/24 22:51 25 MG Lisinopril 40 mg DAILY PO 08/21/24 10:00 08/22/24 09:36 40 MG Pantoprazole Sodium 40 mg DAILY IV 08/21/24 10:00 08/22/24 09:37 40 MG Aspirin 81 mg DAILY PO 08/21/24 10:00 08/22/24 09:30 81 MG Diagnostic Test (Pha) 1 strip ACHS 08/20/24 11:30 08/23/24 06:53 1 STRIP Insulin Human Regular HS SC 08/20/24 22:00 Insulin Human Regular AC SC 08/20/24 11:30 Dextrose 50 ml UD PRN IV 08/20/24 10:30 08/21/24 22:50 50 ML Ertapenem 1 gm/ Sodium Chloride 50 ml @ 100 mls/hr DAILY IV 08/21/24 10:00 08/22/24 10:24 100 MLS/HR Acetaminophen 650 mg Q6HP PRN PO 08/20/24 14:00 08/22/24 15:53 650 MG Amlodipine Besylate 5 mg DAILY PO 08/22/24 10:00 08/22/24 09:37 5 MG Hydralazine HCl 10 mg Q6HP PRN IV 08/21/24 22:30 08/22/24 22:51 10 MG Ascorbic Acid 500 mg BID PO 08/22/24 10:00 08/22/24 22:51 500 MG Zinc Sulfate 220 mg DAILY PO 08/22/24 10:00 08/22/24 09:30 220 MG Cholecalciferol 3,000 unit DAILY PO 08/22/24 10:00 08/22/24 09:31 3,000 UNIT Multivitamins 1 tab DAILY PO 08/22/24 10:00 08/22/24 09:30 1 TAB Lorazepam 0.5 mg Q8HP PRN PO 08/23/24 03:15 Levothyroxine Sodium 112 mcg QAM@0600 PO 08/23/24 06:00 Levothyroxine Sodium 25 mcg QAM@0600 PO 08/23/24 06:00 Glucagon 1 mg PRN PRN IM 08/23/24 07:30 UNV Laboratory Results Laboratory Tests 08/21/24 05:04 Urinalysis Test 08/17/24 23:06 08/20/24 10:40 Urine WBC Clumps Present /hpf (None Seen) Urine Hyaline Casts Many /lpf (0 - 2) Urine Mucus Few (None Seen) Urine Color Colorless (Yellow) Urine Clarity Clear (Clear) Urine pH 6.0 (5.0-9.0) Urine Specific [place] 1.006 (1.001-1.035) Urine Protein Negative (Negative) Urine Ketones Negative (Negative) Urine Blood Negative /uL (Negative) Urine Nitrite Negative (Negative) Urine Bilirubin Negative (Negative) Urine Urobilinogen Normal mg/dL (Negative) Urine Leukocyte Esterase 1+ /uL (Negative) Urine RBC 1 /hpf (0 - 4) Urine Microscopic WBC 4 /HPF (0-5) Urine Squamous Epithelial Cells None seen /hpf (<5) Urine Bacteria None seen /hpf (None Seen) Urine Glucose Normal mg/dL (Normal) Microbiology Microbiology Date/Time Source Procedure Growth Status 08/20/24 10:40 Urine - [place] Urine Culture - Final Escherichia coli - ESBL Complete 08/19/24 12:53 Stool Clostridium difficile Toxin Assay - Final Complete 08/18/24 01:05 Blood Blood Culture - Final NO GROWTH AFTER 5 DAYS OF INCUBATION. Complete Labs and/or images reviewed: Labs reviewed by me, Image(s) reviewed by me Assessment/Plan Assessment/Plan Sepsis secondary to urinary tract infection: Blood cultures negative, urine cultures growing ESBL E coli continue Invanz 1 g IV daily for two weeks Incidental COVID positive patient on 2 L of oxygen by nasal cannula, chest x-ray negative, vitamin-C vitamin D3 zinc multivitamin Acute Metabolic encephalopathy Acute hypotension secondary to sepsis: Resolved with Levophed drip Acute urinary tract infection continue: Invanz Acute lactic acidosis Chronically bedridden Dementia Parkinson's: Sinemet Depression: Seroquel Hypertension Hypothyroidism Dementia Type 2 diabetes Moderate obesity Patient is hospice revoked Time spent 50 minutes Patient is full code Patient's daughter Juanita [phone] at bedside Discussed with the patient's daughter and the patient is being [facility] for [facility] for two weeks for complicated UTI Patient is awaiting transfer to [facility] facility. Plan discussed with: Patient My Orders Orders - MOMO JAMESON MD Procedure Category Date Status Time Ascorbic Acid Tablet PHA 08/22/24 In Process (Vitamin C Tablet) 10:00 Zinc Sulfate PHA 08/22/24 In Process 10:00 Cholecalciferol PHA 08/22/24 In Process Tablet (Vitamin D3 10:00 Multiple Vitamin PHA 08/22/24 In Process Tablet (Mvi Tab) 10:00 * Press Cleaner CONS 08/22/24 Transmitted Consult Discharge DISCHARGE 08/22/24 Transmitted 08:31 Levothyroxine Tablet PHA 08/23/24 In Process (Synthroid Tablet) 06:00 Levothyroxine Tablet PHA 08/23/24 In Process (Synthroid Tablet) 06:00 Date of Service: August 23, 2024 Billing Provider: MOMO JAMESON MD Common Visit Codes: [id number] INP/OBS CARE(HIGH) MOMO JAMESON MD August 23, 2024 08:01
[2024-08-23] MEDS: LEVOTHYROXINE SODIUM 25 MCG TAB PO SCH (08:41)
== END 2024-08-23 22:01 | disposition home health service (06) | DRG 871 ==
LOC: ER 19:24 → EDBD 19:24 → UNDOADMIN 08-18 01:19 → OVERFLOW 08-18 01:19 → ER 08-18 01:24 → OVERFLOW 08-18 01:25 → CENTRAL 08-20 03:10
PROVIDERS: ADMIT Family Medicine; ATTEND Family Medicine
PROC: 05HF33Z Insertion of Infusion Device into Left Cephalic Vein, Percutaneous Approach (ICD-10-PCS; principal; 2024-08-21)
PROC: B54NZZA Ultrasonography of Left Upper Extremity Veins, Guidance (ICD-10-PCS; 2024-08-21)
PROC: 05HD33Z Insertion of Infusion Device into Right Cephalic Vein, Percutaneous Approach (ICD-10-PCS; 2024-08-23)
PROC: B54MZZA Ultrasonography of Right Upper Extremity Veins, Guidance (ICD-10-PCS; 2024-08-23)
DX: A41.51 Sepsis due to Escherichia coli [E. coli] (principal); G93.41 Metabolic encephalopathy; N39.0 Urinary tract infection, site not specified; E87.21 Acute metabolic acidosis; G20.A1 Parkinson's disease without dyskinesia, without mention of fluctuations; F02.80 Dementia in other diseases classified elsewhere, unspecified severity, without behavioral disturbance, psychotic disturbance, mood disturbance, and anxiety; Z20.822 Contact with and (suspected) exposure to COVID-19; E11.9 Type 2 diabetes mellitus without complications; E66.9 Obesity, unspecified; I95.89 Other hypotension; F32.A Depression, unspecified; E03.9 Hypothyroidism, unspecified; K29.00 Acute gastritis without bleeding; I10 Essential (primary) hypertension; Z79.899 Other long term (current) drug therapy; Z80.8 Family history of malignant neoplasm of other organs or systems; Z90.49 Acquired absence of other specified parts of digestive tract; Z74.01 Bed confinement status; Z68.24 Body mass index [BMI] 24.0-24.9, adult
CPT/HCPCS: 36415; 70450; 71250; 74176; 80048; 80053; 81001; 82962; 83605; 83690; 83735; 85025; 87040; 87045; 87086; 87088; 87186; 87426; 87427; 87493; 96360; 97163; G0378; J1335; J2470

== ENCOUNTER 2024-08-26 12:14 | Inpatient (IN) | payer OTHER, MEDICARE, MEDICAID ==
[~2024-08-26] VITALS: Ht 165.1 cm; Wt 64.9 kg
[2024-08-26 13:05] VITALS: PULSE 79; RESP 13; O2SAT 97
[2024-08-26 13:56] LABS: Basophils # (auto) 0.1 10 ^3/uL (0-0.2); Basophils % (auto) 0.8 % (0.0-2.0); Eosinophils # (auto) 0.2 10 ^3/uL (0-0.8); Eosinophils % (auto) 2.1 % (0.0-7.0); Hematocrit 38.8 % (36.0-46.0); Hemoglobin 12.1 g/dL (12.2-16.2); Lymphocytes # (auto) 1.5 10 ^3/uL (0.4-5.4); Lymphocytes % (auto) 18.6 % (10.0-50.0); Mean Corpuscular Hgb Conc. 31.1 g/dL (32.0-36.0); Mean Corpuscular Volume 77.4 fL (80.0-100.0); Monocytes # (auto) 0.6 10 ^3/uL (0-1.3); Monocytes % (auto) 6.9 % (0.0-12.0); Neutrophils # (auto) 5.8 10 ^3/uL (1.6-8.6); Neutrophils % (auto) 71.6 % (37.0-80.0); Platelet Count (auto) 286 10^3/uL (140-450); Red Blood Cells 5.02 10^6/uL (4.0-5.20); Red Cell Distribution Width 15.8 % (11.8-14.3); White Blood Cell 8.1 10^3/uL (4.4-10.8)
[2024-08-26 14:13] LABS: Anion Gap 16 (5-15); Carbon Dioxide 21 mmol/L (20-31)
[2024-08-26 14:14] LABS: Calcium 9.2 mg/dL (8.7-10.4)
[2024-08-26 14:17] LABS: Chloride 108 mmol/L (98-107); Potassium 3.3 mmol/L (3.5-5.1); Sodium 145 mmol/L (136-145)
[2024-08-26 14:18] LABS: Glucose 76 mg/dL (74-106)
[2024-08-26 14:20] LABS: Blood Urea Nitrogen 6 mg/dL (9-23)
--- NOTE | 2024-08-26 14:54 | ED.PDOC ---
History of Present Illness HPI Comments 79-year-old female brought in by ambulance with prior medical history of Dementia, DM (type II), GERD, HTN , Sepsis secondary to bacteremia, Acute lactic acidosis, Bacteremia with Enterococcus faecalis, Transaminitis, FOBT positive, Chronic bedridden, Stage III decubitus sacrum, Parkinson's disease; SHx of Cholecystectomy and the c/c of ALOC. Family called EMS due from the patient being altered. Patient had an Accu-Chek of 46 on scene and was given ductus which brought the blood sugar up to 111. Denies chills, fever, N/V/D, SOB, CP. No other associated symptoms, modifiers, recent injuries or sick contacts present at this time. Chief Complaint: Hypoglycemia Time Seen by MD: 14:10 Primary Care Provider: NEEL Reviewed Notes: Nurses Notes, Operations Systems Specialist Notes, Medications, Allergies Allergies: Coded Allergies: Hydrocodone (Verified Allergy, Unknown, 11/05/23) Morphine (Verified Allergy, Unknown, 08/26/24) Home Meds Unable to Obtain Active Prescriptions or Reported Meds Information Source: Emergency Med Personnel Mode of Arrival: EMS Severity: Moderate Timing: Hours Duration: Since onset, Hours Prehospital treatment: None Past Medical History PAST MEDICAL HISTORY: Dementia, DM, GERD, HTN Past Medical History (Other): Sepsis secondary to bacteremia Acute lactic acidosis Bacteremia with Enterococcus faecalis Transaminitis FOBT positive Chronic bedridden Stage III decubitus sacrum Parkinson's disease Surgical History: Cholecystectomy DIRECT SUPPORT WORKER History: Unobtainable Family History Family History: Reviewed,noncontributory to illness, Unknown Social History Smoker: Non-Smoker Alcohol: Denies ETOH Use Drugs: Denies Drug Use Lives In: Home Unable to Obtain due to: Altered Mental Status All Other Systems: Reviewed and Negative Physical Exam General Appearance: No Apparent Distress, Normal HEENT: Normal ENT Inspection, Pharynx Normal, TMs Normal Neck: Full Range of Motion, Non-Tender, Normal, Normal Inspection Respiratory: Chest Non-Tender, Lungs Clear, No Accessory Muscle Use, No Respiratory Distress, Normal Breath Sounds Cardiovascular: No Edema, No JVD, No Murmur, No Gallop, Normal Peripheral Pulses, Regular Rate/Rhythm Breast Exam: Deferred Gastrointestinal: No Organomegaly, Non Tender, No Pulsatile Mass, Normal Bowel Sounds, Soft Genitalia: Deferred Pelvic: Deferred Rectal: Deferred Extremities: No calf tenderness, Normal capillary refill, Normal inspection, Normal range of motion, Non-tender, No pedal edema Musculoskeletal : Apperance: Normal Neurologic: Alert, design engineer products II-XII nml as Tested, No Motor Deficits, Normal Affect, Normal Mood, No Sensory Deficits Cerebellar Function: Normal Reflexes: Normal Skin: Dry, Normal Color, Warm Lymphatic: No Adenopathy Was a procedure done? Was a procedure done?: No Differential Dx Considerations may include: ACS, CVA, viral syndrome, electrolyte abnormality X-Ray, Labs, Meds, VS Vital Signs Date Time Temp Pulse Resp B/P (MAP) Pulse Ox O2 Delivery O2 Flow Rate FiO2 08/26/24 15:26 76 21 136/74 (94) 98 08/26/24 14:00 98 12 136/80 (98) 98 08/26/24 13:05 79 13 97 Room Air* 0 21 08/26/24 12:59 98.0 82 14 134/82 (99) 98 98.0 08/26/24 12:18 97.8 76 16 130/81 (97) 100 97.8 Lab Test 08/26/24 15:12 08/26/24 15:01 08/26/24 15:00 08/26/24 13:41 Range/Units Troponin I High Sensitivity Pending 10 </=34 ng/L POC Glucose 51 L 49 *L 70-106 mg/dl White Blood Count 8.1 # 4.4-10.8 10^3/uL Red Blood Count 5.02 4.0-5.20 10^6/uL Hemoglobin 12.1 L 12.2-16.2 g/dL Hematocrit 38.8 # 36.0-46.0 % Mean Corpuscular Volume 77.4 L 80.0-100.0 fL Mean Corpuscular Hemoglobin 24.0 L 28.0-32.0 pg Mean Corpuscular Hemoglobin Concent 31.1 L 32.0-36.0 g/dL Red Cell Distribution Width 15.8 H 11.8-14.3 % Platelet Count 286 140-450 10^3/uL Mean Platelet Volume 8.0 6.9-10.8 fL Neutrophils (%) (Auto) 71.6 37.0-80.0 % Lymphocytes (%) (Auto) 18.6 10.0-50.0 % Monocytes (%) (Auto) 6.9 0.0-12.0 % Eosinophils (%) (Auto) 2.1 0.0-7.0 % Basophils (%) (Auto) 0.8 0.0-2.0 % Neutrophils # (Auto) 5.8 1.6-8.6 10 ^3/uL Lymphocytes # (Auto) 1.5 0.4-5.4 10 ^3/uL Monocytes # (Auto) 0.6 0-1.3 10 ^3/uL Eosinophils # (Auto) 0.2 0-0.8 10 ^3/uL Basophils # (Auto) 0.1 0-0.2 10 ^3/uL Nucleated Red Blood Cells 0.0 % Sodium Level 145 136-145 mmol/L Potassium Level 3.3 L 3.5-5.1 mmol/L Chloride Level 108 H 98-107 mmol/L Carbon Dioxide Level 21 20-31 mmol/L Anion Gap 16 H 5-15 Blood Urea Nitrogen 6 L 9-23 mg/dL Creatinine 0.50 L 0.550-1.02 mg/dL Glomerular Filtration Rate Calc 96 >90 mL/min BUN/Creatinine Ratio 12.0 10.0-20.0 Serum Glucose 76 74-106 mg/dL Calcium Level 9.2 8.7-10.4 mg/dL Current Medications Medications (Trade) Dose Ordered Sig/Marlen Route Start Time Stop Time Status Last Admin Dextrose 50 ml ONCE ONCE IV 08/26/24 15:15 08/26/24 15:16 DC 08/26/24 15:05 Dextrose 1,000 ml @ 75 mls/hr [id number] ONCE IV 08/26/24 15:30 08/27/24 04:49 08/26/24 15:31 Time of 1ST Reevaluation: 14:40 Reevaluation 1ST: Unchanged Patient Education/Counseling: Diagnosis, Treatment, Prognosis Family Education/Counseling: No Family Present Departure 1 Departure Time of Disposition: 15:35 (Patient with a worsening mental status and her fact of hypoglycemia. We will admit patient for further workup and expert consultation) Impression: Primary Impression: Uncontrolled diabetes mellitus Qualified Codes: E11.649 - Type 2 diabetes mellitus with hypoglycemia without coma Additional Impressions: Metabolic encephalopathy Generalized weakness Disposition: ADMITTED INPATIENT Admit to: Med Surg Condition: Serious e-Prescriptions Unable to Obtain Active Prescriptions or Reported Meds Critical Care Note Critical Care Time?: Yes Critical care comment: Altered mental status Authorized and Performed by: Bee Calhoun MD Total critical care time: Approximately 34 minutes Due to a high probability of clinically significant, life threatening deterioration, the patient required my highest level of preparedness to intervene emergently and I personally spent this critical care time directly and personally managing the patient. This critical care time included obtaining a history; examining the patient; pulse oximetry; ordering and review of studies; arranging urgent treatment with development of a management plan; evaluation of patient's response to treatment; frequent reassessment; and, discussions with other providers. This critical care time was performed to assess and manage the high probability of imminent, life-threatening deterioration that could result in multi-organ failure. It was exclusive of separately billable procedures and treating other patients and teaching time. Please see my other sections and the rest of the note for further information on patient assessment and treatment. Stability Stability form required: No I personally scribed for BEE CALHOUN MD ([email or web address]) on 08/26/24 at 14:54. Electronically submitted by Dutch Young ([email or web address]). BEE CALHOUN MD August 26, 2024 14:54
[2024-08-26] MEDS: DEXTROSE (50%) 50ML SYRG IV ONE (15:05)
[2024-08-26] MEDS: DEXTROSE 50% SYRINGE 50 ML IV ONE (15:06)
--- NOTE | 2024-08-26 15:17 | DVH ---
CT BRAIN WITHOUT CONTRAST HISTORY: ams TECHNIQUE: Axial scans were obtained from the skull base through the vertex without contrast. [place] l and coronal reformats were generated. One or more of the following radiation dose reduction techniq ues were used for this examination: automated exposure control, adjustment of the mA and/or kV accord ing to patient size, use of iterative reconstruction technique. COMPARISON: CT HEAD WITHOUT CONTRAST on DOS: 08/17/24, HEAD WITHOUT CONTRAST on DOS: 12/15/20 FINDINGS: The ventricular system and cortical sulci are normal in size for patient age. No abnormal extra-axial fluid collections or findings of intracranial hemorrhage. No intracranial mass or findings of acute ischemic infarction are demonstrated on these noncontrast s cans. Visualized paranasal sinuses are clear. No evidence of skull fracture. Other: The study is limited due to motion artifact. IMPRESSION: 1. No acute intracranial findings. Negative CT scan head.
[2024-08-26] MEDS: DEXTROSE 10% 1,000 ML IV ONE (15:31)
[2024-08-26 15:57] LABS: Urine Bacteria None Seen /hpf (None Seen)
--- NOTE | 2024-08-26 16:12 | DVH ---
INDICATION: ams TECHNIQUE: Frontal view of the chest. COMPARISON: CHEST PORTABLE on DOS: 12/15/20, CXRP on DOS: 12/15/20 FINDINGS: Finding. The heart enlarged with left ventricular contour. There is uncoiling atherosclerotic change thoracic aorta. mediastinal contours are grossly unremarkable. There is no evidence of pleural disea se. Left hilar infiltrate.. The bony structures of the chest are intact without fracture. IMPRESSION: 1. Left hilar infiltrate 2. Cardiomegaly with left ventricular contour.
[2024-08-26 16:16] LABS: Urine Blood Negative /uL (Negative); Urine Clarity Clear (Clear); Urine Color Light-Yellow (Yellow); Urine Mucus FEW (None Seen); Urine Protein, UAD TRACE (Negative); Urine Specific Gravity 1.014 (1.001-1.035); Urine Squamous Epithelial Cell FEW /hpf (<5); Urine Urobilinogen Normal (Negative); Urine WBC 3 /HPF (0-5)
[2024-08-26] MEDS ORDERED: ONDANSETRON HCL 4 MG/2 ML VIAL IV PRN (17:45)
[2024-08-26] MEDS ORDERED: ACETAMINOPHEN 325 MG TAB PO PRN (17:45)
[2024-08-26] MEDS ORDERED: DOCUSATE SOD 100 MG CAP PO PRN (17:45)
--- NOTE | 2024-08-26 18:00 | DVHHP2 ---
History of Present Illness Reason for Visit: Hypoglycemia History of Present Illness 79-year-old female was brought in by ambulance family called EMS due to patient being altered, patient had an Accu-Chek of 46 on scene and was given dextrose which brought the blood sugar up to 111. Patient denies other symptoms. Blood sugars have been stable since she has been in the ER, we will monitor patient overnight. Patient is being admitted to medical/surgical Past Medical History Dementia, diabetes mellitus type 2, GERD, hypertension, chronic stage III decubitus on sacrum, Parkinson's. Past Surgical History Cholecystectomy Family History Denies Smoke: No ALCOHOL: none Drugs: None Lives: with Family Review of Systems Constitutional: No: Fever, Chills, Sweats, Weakness, Malaise, Other Eyes: No: Pain, Vision change, Conjunctivae inflammation, Eyelid inflammation, Other, Redness ENT: No: Ear pain, Ear discharge, Nose pain, Nose discharge, Nose congestion, Mouth pain, Mouth swelling, Throat pain, Throat swelling, Other Respiratory: No: Cough, Dry, Shortness of breath, SOB with excertion, Wheezing, Hemoptysis, Pleuritic Pain, Sputum, Wheezing, Other Cardiovascular: No: Chest Pain, Palpitations, Orthopnea, Paroxysmal Noc. Dyspnea, Edema, Lt Headedness, Other Gastrointestinal: No: Nausea, Vomiting, Abdominal Pain, Diarrhea, Constipation, Melena, Hematochezia, Other Genitourinary: No Dysuria, No Frequency, No Incontinence, No Hematuria, No Retention, No Other Musculoskeletal: No: other, neck pain, shoulder pain, arm pain, back pain, hand pain, leg pain, foot pain Skin: No: Rash, Lesions, Jaundice, Bruising, Other Neurological: Confusion; No: Weakness, Numbness, Incoordination, Change in speech, Seizures, Other Allergies: Coded Allergies: Hydrocodone (Verified Allergy, Unknown, 11/05/23) Morphine (Verified Allergy, Unknown, 08/26/24) Medications Current Medications Medications Dose Ordered Sig/Marlen Route Start Time Stop Time Status Last Admin Dose Admin Ondansetron HCl 4 mg Q4HP PRN IV 08/26/24 17:45 UNV Docusate Sodium 100 mg BIDPRN PRN PO 08/26/24 17:45 UNV Diagnostic Test (Pha) 1 strip Q6HR 08/26/24 18:00 UNV Dextrose 50 ml UD PRN IV 08/26/24 17:45 UNV Acetaminophen 325 mg Q4HP PRN PO 08/26/24 17:45 UNV Lisinopril 20 mg DAILY PO 08/27/24 10:00 UNV Aspirin 81 mg DAILY PO 08/27/24 10:00 UNV Levothyroxine Sodium 25 mcg QAM@0600 PO 08/27/24 06:00 UNV Pantoprazole Sodium 40 mg DAILY@0600 PO 08/27/24 06:00 UNV Exam Vital Signs Vital Signs Date Time Temp Pulse Resp B/P (MAP) Pulse Ox O2 Delivery O2 Flow Rate FiO2 08/26/24 17:30 98.4 78 29 146/80 (102) 99 98.4 08/26/24 13:05 Room Air* 0 21 General Appearance: Alert, Cooperative, No acute distress (Oriented to person) HEENT: Atraumatic, PERRLA, EOMI, Mucous membr. moist/pink Respiratory: Clear to auscultation, Normal air movement Cardiovascular: Regular rate, Normal S1, Normal S2, No murmurs Abdominal: Normal bowel sounds, Soft, No tenderness, No hepatospenomegaly, No masses Extremities: No clubbing, No cyanosis, No edema, Normal pulses, No tenderness/swelling Skin: No rashes, No breakdown, No significant lesion Neuro: Normal gait, Normal speech, Strength at 5/5 X4 ext, Sensation intact, Cranial nerves 3-12 NL, Reflexes 2+ Psych/Mental Status: Mental status NL, Mood NL Labs/Xrays Reviewed imaging and labs Labs Test 08/26/24 16:48 08/26/24 15:50 08/26/24 15:12 08/26/24 13:41 Range/Units POC Glucose 114 H 70-106 mg/dl Urine Color Light-yellow Yellow Urine Clarity Clear Clear Urine pH 6.0 5.0-9.0 Urine Specific [place] 1.014 1.001-1.035 Urine Protein Trace H Negative Urine Ketones 2+ H Negative Urine Blood Negative Negative /uL Urine Nitrite Negative Negative Urine Bilirubin Negative Negative Urine Urobilinogen Normal Negative mg/dL Urine Leukocyte Esterase Negative Negative /uL Urine RBC <1 0 - 4 /hpf Urine Microscopic WBC 3 0-5 /HPF Urine Squamous Epithelial Cells Few <5 /hpf Urine Bacteria None seen None Seen /hpf Urine Mucus Few None Seen Urine Glucose Normal Normal mg/dL Troponin I High Sensitivity 9 </=34 ng/L White Blood Count 8.1 # 4.4-10.8 10^3/uL Red Blood Count 5.02 4.0-5.20 10^6/uL Hemoglobin 12.1 L 12.2-16.2 g/dL Hematocrit 38.8 # 36.0-46.0 % Mean Corpuscular Volume 77.4 L 80.0-100.0 fL Mean Corpuscular Hemoglobin 24.0 L 28.0-32.0 pg Mean Corpuscular Hemoglobin Concent 31.1 L 32.0-36.0 g/dL Red Cell Distribution Width 15.8 H 11.8-14.3 % Platelet Count 286 140-450 10^3/uL Mean Platelet Volume 8.0 6.9-10.8 fL Neutrophils (%) (Auto) 71.6 37.0-80.0 % Lymphocytes (%) (Auto) 18.6 10.0-50.0 % Monocytes (%) (Auto) 6.9 0.0-12.0 % Eosinophils (%) (Auto) 2.1 0.0-7.0 % Basophils (%) (Auto) 0.8 0.0-2.0 % Neutrophils # (Auto) 5.8 1.6-8.6 10 ^3/uL Lymphocytes # (Auto) 1.5 0.4-5.4 10 ^3/uL Monocytes # (Auto) 0.6 0-1.3 10 ^3/uL Eosinophils # (Auto) 0.2 0-0.8 10 ^3/uL Basophils # (Auto) 0.1 0-0.2 10 ^3/uL Nucleated Red Blood Cells 0.0 % Sodium Level 145 136-145 mmol/L Potassium Level 3.3 L 3.5-5.1 mmol/L Chloride Level 108 H 98-107 mmol/L Carbon Dioxide Level 21 20-31 mmol/L Anion Gap 16 H 5-15 Blood Urea Nitrogen 6 L 9-23 mg/dL Creatinine 0.50 L 0.550-1.02 mg/dL Glomerular Filtration Rate Calc 96 >90 mL/min BUN/Creatinine Ratio 12.0 10.0-20.0 Serum Glucose 76 74-106 mg/dL Calcium Level 9.2 8.7-10.4 mg/dL Assessment/Plan Assessment/Plan hypoglycemia/diabetes mellitus type 2 Accu-Cheks q.6 hours Dextrose p.r.n. to increase blood sugar Per patient mental status Chronic Benign essential hypertension Continue home lisinopril Hypothyroid Continue levothyroxine VTE prophylaxis-Lovenox GI prophylaxis-Protonix Plan discussed with: Patient My Orders Orders - MILO MASON Procedure Category Date Status Time Admit ADMIT 08/26/24 Transmitted 17:36 Allergies CELESTE 08/26/24 In Process 17:36 Code Status CODE 08/26/24 Transmitted 17:36 Ondansetron Hcl PHA 08/26/24 Logged (Zofran) 17:45 Docusate Sodium PHA 08/26/24 Logged Capsule (Colace 17:45 Fall Risk Precautions CELESTE 08/26/[address] 17:36 Complete Blood Count LAB 08/27/24 Verified 04:00 Comprehensive LAB 08/27/24 Verified Metabolic Panel 04:00 Cardiac DIET 08/26/24 Transmitted Diet-2gna,Lofat,Lochol Dinner Condition: Fair CELESTE 08/26/24 In Process 17:36 Maintain Bed Rest CELESTE 08/26/24 In Process 17:36 Glucose Blood PHA 08/26/24 Logged (Accu-Chek Comfort 18:00 Dextrose 50% Syringe PHA 08/26/24 Logged 17:45 Acetaminophen Tablet PHA 08/26/24 Logged (Tylenol Tablet) 17:45 Lisinopril Tablet PHA 08/27/24 Logged (Zestril Tablet) 10:00 Aspirin Tablet PHA 08/27/24 Logged 10:00 Levothyroxine Tablet PHA 08/27/24 Logged (Synthroid Tablet) 06:00 Pantoprazole Tablet PHA 08/27/24 Logged (Protonix Tablet) 06:00 Date of Service: August 26, 2024 Billing Provider: MILO MASON Common Visit Codes: [id number] INP/OBS CARE (HIGH) MILO MASON August 26, 2024 18:00
[2024-08-26] MEDS: ACCU-CHEK COMFORT CURVE STRIP VI SCH (18:38)
[2024-08-26 20:50] VITALS: PULSE 83; RESP 16; O2SAT 93
[2024-08-27] MEDS: PANTOPRAZOLE 40 MG TAB PO SCH (06:00)
[2024-08-27] MEDS: LEVOTHYROXINE SODIUM 25 MCG TAB PO SCH (06:00)
[2024-08-27 06:25] LABS: Basophils # (auto) 0.1 10 ^3/uL (0-0.2); Eosinophils # (auto) 0.3 10 ^3/uL (0-0.8); Hemoglobin 12.1 g/dL (12.2-16.2); Lymphocytes # (auto) 1.3 10 ^3/uL (0.4-5.4); Monocytes # (auto) 0.5 10 ^3/uL (0-1.3); Neutrophils # (auto) 6.6 10 ^3/uL (1.6-8.6); Nucleated Red Blood Cells % 0.1 %; White Blood Cell 8.9 10^3/uL (4.4-10.8)
[2024-08-27 06:28] LABS: Basophils % (auto) 0.8 % (0.0-2.0); Eosinophils % (auto) 3.8 % (0.0-7.0); Lymphocytes % (auto) 14.9 % (10.0-50.0); Mean Corpuscular Hemoglobin 24.3 pg (28.0-32.0); Mean Corpuscular Hgb Conc. 31.8 g/dL (32.0-36.0); Mean Corpuscular Volume 76.4 fL (80.0-100.0); Monocytes % (auto) 5.9 % (0.0-12.0); Neutrophils % (auto) 74.6 % (37.0-80.0); Platelet Count (auto) 311 10^3/uL (140-450); Red Blood Cells 4.97 10^6/uL (4.0-5.20); Red Cell Distribution Width 15.7 % (11.8-14.3)
[2024-08-27 06:48] LABS: Alanine Aminotransferase 11 U/L (7-40); Albumin 3.7 g/dL (3.2-4.8); Alkaline Phosphatase 98 U/L (46-116); Anion Gap 10 (5-15); Aspartate Aminotransferase 23 U/L (13-40); BUN/Creatinine Ratio 9.5 (10.0-20.0); Bilirubin, Total 0.4 mg/dL (0.2-1.0); Calcium 9.2 mg/dL (8.7-10.4); Carbon Dioxide 27 mmol/L (20-31); Chloride 104 mmol/L (98-107); Sodium 141 mmol/L (136-145); Total Protein 7.2 g/dL (5.7-8.2)
[2024-08-27 06:50] LABS: Blood Urea Nitrogen 6 mg/dL (9-23); Glucose 122 mg/dL (74-106)
[2024-08-27 07:30] VITALS: PULSE 99; RESP 19; O2SAT 97
[2024-08-27] MEDS: ASPirin 81 mg TAB PO SCH (10:00)
[2024-08-27] MEDS: LISINOPRIL 20 MG TAB PO SCH (10:00)
[2024-08-27] MEDS: cefTRIAXone 1GM/50ML D5W 50 ML IV ONE (13:14)
[2024-08-27] MEDS: D5W/SOD CHL 0.45% 1,000 ML IV ONE (15:45)
--- NOTE | 2024-08-27 16:51 | DVHPN2 ---
Subjective no signi improvement from yesterday. continue treatment. hpi and ros from daughter Reviewed: H&P Changes from previous H/P or p: No Changes General: Per HPI Eyes: No Pain, No Vision change, No Conjunctivae inflammation, No Eyelid inflammation, No Other, No Redness ENT: No Ear pain, No Ear discharge, No Nose pain, No Nose discharge, No Nose congestion, No Mouth pain, No Mouth swelling, No Throat pain, No Throat swelling, No Other Cardiovascular: No Chest Pain, No Palpitations, No Orthopnea, No Paroxysmal Noc. Dyspnea, No Edema, No Lt Headedness, No Other Respiratory: No Cough, No Dry, No Shortness of breath, No SOB with excertion, No Wheezing, No Hemoptysis, No Pleuritic Pain, No Sputum, No Other Gastrointestinal: No Nausea, No Vomiting, No Abdominal Pain, No Diarrhea, No Constipation, No Melena, No Hematochezia, No Other Genitourinary: No Dysuria, No Frequency, No Incontinence, No Hematuria, No Retention, No Other Musculoskeletal: No other, No neck pain, No shoulder pain, No arm pain, No back pain, No hand pain, No leg pain, No foot pain Skin: No Rash, No Lesions, No Jaundice, No Bruising, No Other Objective Vitals Vital Signs Date Time Temp Pulse Resp B/P (MAP) Pulse Ox O2 Delivery O2 Flow Rate FiO2 08/27/24 16:00 97.6 83 17 123/66 (85) 100 97.6 08/27/24 07:30 Nasal Cannula* 3 32 Intake/Output Intake and Output 08/27/24 07:00 Intake Total 1050 ml Balance 1050 ml Intake IV Total 1050 ml Exam following some commands. reflexes present left facial //eyelid droop General Appearance: Alert, Cooperative, No acute distress, poor alert status HEENT: Atraumatic, PERRLA, EOMI, Mucous membr. moist/pink Respiratory: Clear to auscultation, Normal air movement Cardiovascular: Regular rate, Normal S1, Normal S2, No murmurs Abdominal: Normal bowel sounds, Soft, No tenderness, No hepatospenomegaly, No masses Extremities: No clubbing, No cyanosis, No edema, Normal pulses, No tenderness/swelling Skin: No rashes, No breakdown, No significant lesion Medications Current Medications Medications Dose Ordered Sig/Marlen Route Start Time Stop Time Status Last Admin Dose Admin Ondansetron HCl 4 mg Q4HP PRN IV 08/26/24 17:45 Docusate Sodium 100 mg BIDPRN PRN PO 08/26/24 17:45 Diagnostic Test (Pha) 1 strip Q6HR 08/26/24 18:00 08/27/24 11:56 1 STRIP Dextrose 50 ml UD PRN IV 08/26/24 17:45 Acetaminophen 325 mg Q4HP PRN PO 08/26/24 17:45 Lisinopril 20 mg DAILY PO 08/27/24 10:00 Aspirin 81 mg DAILY PO 08/27/24 10:00 Levothyroxine Sodium 25 mcg QAM@0600 PO 08/27/24 06:00 Pantoprazole Sodium 40 mg DAILY@0600 PO 08/27/24 06:00 08/27/24 06:00 40 MG Ceftriaxone Sodium 50 ml @ 100 mls/hr DAILY@09 IV 08/28/24 09:00 Laboratory Results Laboratory Tests 08/27/24 06:03 Chemistry Test 08/27/24 06:03 Albumin 3.7 g/dL (3.2-4.8) Calcium Level 9.2 mg/dL (8.7-10.4) Total Protein 7.2 g/dL (5.7-8.2) LFT Test 08/27/24 06:03 Alanine Aminotransferase (ALT) 11 U/L (7-40) Alkaline Phosphatase 98 U/L (46-116) Aspartate Amino Transferase (AST) 23 U/L (13-40) Total Bilirubin 0.4 mg/dL (0.2-1.0) HgA1c, TSH Test 08/27/24 06:03 Thyroid Stimulating Hormone (TSH) 12.36 uIU/mL (0.55-4.78) H Urinalysis Test 08/26/24 15:50 Urine Color Light-yellow (Yellow) Urine Clarity Clear (Clear) Urine pH 6.0 (5.0-9.0) Urine Specific [place] 1.014 (1.001-1.035) Urine Protein Trace (Negative) H Urine Ketones 2+ (Negative) H Urine Blood Negative /uL (Negative) Urine Nitrite Negative (Negative) Urine Bilirubin Negative (Negative) Urine Urobilinogen Normal mg/dL (Negative) Urine Leukocyte Esterase Negative /uL (Negative) Urine RBC <1 /hpf (0 - 4) Urine Microscopic WBC 3 /HPF (0-5) Urine Squamous Epithelial Cells Few /hpf (<5) Urine Bacteria None seen /hpf (None Seen) Urine Mucus Few (None Seen) Urine Glucose Normal mg/dL (Normal) Labs and/or images reviewed: Labs reviewed by me, Image(s) reviewed by me Assessment/Plan Assessment/Plan acute toxic metabolic encephalopathy, due to below - see below causes sepsis due to below - on abx unasyn.. bacteremia ruleout. cont tx possible contuning complicated cystiits as below. bacteremia ruleout hypoglycemia- d5/halfNS gtt 75cc for 1L. and prn thereafter. starvation ketosis- patient has been npo. unable to tolerate her meds since sent home. recent complicated cystitis - sp meropenem, now unasyn stroke, likely, will rule out - past 24hr window, no need tele neuro right now - will get CT head and MRI brain iatrogenic /polypharmacy? - stop seroquel. no neuro available to do med rec or ruleout neurological causes/parkinson related causes of AMS parkinsons/dementia/ npo status - NG tube insert . continue home meds poor prognosis full code per daughter at bedside diet npo tele Plan discussed with: Daughter My Orders Orders - PERRY GROSS MD Procedure Category Date Status Time Blood Culture GISSELLE 08/27/24 In Process 12:49 Ceftriaxone 1gm/50ml PHA 08/28/24 In Process D5w (Rocephin) 09:00 Abg W/ Co-Ox RT 08/27/24 Logged 14:32 D5w/Sod Chl 0.45% PHA 08/27/24 In Process (D5w 1/2ns) 15:00 * Swallow Request ST 08/27/24 Transmitted 14:46 Npo (Nothing By DIET 08/27/24 Transmitted Mouth) Diet Dinner Date of Service: August 27, 2024 Billing Provider: PERRY GROSS MD Common Visit Codes: [id number] INP/OBS CARE(HIGH) PERRY GROSS MD August 27, 2024 16:51
[2024-08-27 16:59] LABS: Base Excess -2.7 mmol/L (-2.0-3.0)
[2024-08-27] MEDS: MULTIPLE VITAMIN TAB PO ONE (17:00)
[2024-08-27 17:47] VITALS: BP 145/79; PULSE 79; RESP 16; TEMP 97.7; O2SAT 92; O2SAT 93
[2024-08-27] MEDS: THIAMINE 100mg/ml INJ (200mg/2ml VIAL) IV ONE (19:00)
[2024-08-27 20:00] VITALS: PULSE 89; RESP 18; O2SAT 97
[2024-08-27 21:00] VITALS: BP 153/97; PULSE 105; RESP 16; TEMP 97.4; O2SAT 97
[2024-08-27] MEDS: CARBIDOPA W LEVODOPA 25/100mg TABLET PO SCH (21:11)
[2024-08-28] VITALS (8 sets, daily range): BP systolic 105–128; BP diastolic 59–87; PULSE 73–110; RESP 14–20; TEMP 97.5–99.2; O2SAT 93–100
[2024-08-28] MEDS: AMPICILLIN & SULBACTAM SODIUM 3 GM in SODIUM CHL 0.9% 100 ML IV SCH (00:11)
[2024-08-28] MEDS: hydrALAZINE HCL 20 MG/ML VL IV PRN (00:14)
[2024-08-28 06:20] LABS: Basophils # (auto) 0 10 ^3/uL (0-0.2); Basophils % (auto) 0.4 % (0.0-2.0); Eosinophils # (auto) 0.2 10 ^3/uL (0-0.8); Eosinophils % (auto) 2.6 % (0.0-7.0); Hemoglobin 12.5 g/dL (12.2-16.2); Lymphocytes # (auto) 0.9 10 ^3/uL (0.4-5.4); Lymphocytes % (auto) 10.4 % (10.0-50.0); Mean Corpuscular Volume 75.1 fL (80.0-100.0); Monocytes # (auto) 0.4 10 ^3/uL (0-1.3); Monocytes % (auto) 4.8 % (0.0-12.0); Neutrophils # (auto) 7.2 10 ^3/uL (1.6-8.6); Neutrophils % (auto) 81.8 % (37.0-80.0); Platelet Count (auto) 312 10^3/uL (140-450); Red Cell Distribution Width 15.4 % (11.8-14.3); White Blood Cell 8.8 10^3/uL (4.4-10.8)
[2024-08-28 06:45] LABS: Albumin 3.5 g/dL (3.2-4.8); Alkaline Phosphatase 86 U/L (46-116); Anion Gap 12 (5-15); Aspartate Aminotransferase 21 U/L (13-40); Carbon Dioxide 25 mmol/L (20-31); Glucose 90 mg/dL (74-106); Sodium 144 mmol/L (136-145); Total Protein 6.9 g/dL (5.7-8.2)
[2024-08-28 06:46] LABS: Bilirubin, Total 0.4 mg/dL (0.2-1.0)
[2024-08-28 07:22] LABS: Alanine Aminotransferase < 9 U/L (7-40); BUN/Creatinine Ratio 11.6 (10.0-20.0); Blood Urea Nitrogen < 5 mg/dL (9-23); Calcium 8.5 mg/dL (8.7-10.4); Chloride 107 mmol/L (98-107)
[2024-08-28 07:24] LABS: Potassium 2.4 mmol/L (3.5-5.1)
[2024-08-28] MEDS ORDERED: cefTRIAXone 1GM/50ML D5W 50 ML IV SCH (09:00)
[2024-08-28] MEDS: D5W/SOD CHL 0.45% 1,000 ML IV SCH (09:30)
[2024-08-28] MEDS: Pro-Stat SF 30ml Vanilla PO SCH (10:00)
[2024-08-28] MEDS: Juven Orange Powder PACKET 27.5gm PO SCH (10:00)
[2024-08-28] MEDS: MULTIPLE VITAMIN TAB PO SCH (10:00)
[2024-08-28] MEDS: THIAMINE HCL 100 MG TAB PO SCH (10:00)
[2024-08-28] MEDS ORDERED: VANCOMYCIN PER PHARMACY 0 MG IV SCH (12:30)
[2024-08-28] MEDS ORDERED: hydrALAZINE HCL 20 MG/ML VL IV PRN (12:45)
[2024-08-28] MEDS: MEROPENEM 1GM IVPB 50 ML IV SCH (13:26)
[2024-08-28] MEDS: PANTOPRAZOLE 40 MG/10 ML VIAL INJ IV SCH (13:29)
--- NOTE | 2024-08-28 13:30 | DVHPN2 ---
Subjective no signi improvement from yesterday. continue treatment. hpi and ros from daughter Reviewed: H&P Changes from previous H/P or p: No Changes General: Per HPI Objective Vitals Vital Signs Date Time Temp Pulse Resp B/P (MAP) Pulse Ox O2 Delivery O2 Flow Rate FiO2 08/28/24 12:36 98.1 89 20 117/71 (86) 95 98.1 08/28/24 08:00 Room Air* 0 21 Intake/Output Intake and Output 08/28/24 07:00 Intake Total 100 ml Output Total 1600 ml Balance -1500 ml Intake Oral 0 ml IV Total 100 ml Output Urine Total 1600 ml # Bowel Movements 2 Exam following some commands. reflexes present left facial //eyelid droop General Appearance: Alert, Cooperative, No acute distress, poor alert status HEENT: Atraumatic, PERRLA, EOMI, Mucous membr. moist/pink Respiratory: Clear to auscultation, Normal air movement Cardiovascular: Regular rate, Normal S1, Normal S2, No murmurs Abdominal: Normal bowel sounds, Soft, No tenderness, No hepatospenomegaly, No masses Extremities: No clubbing, No cyanosis, No edema, Normal pulses, No tenderness/swelling Skin: No rashes, No breakdown, No significant lesion Medications Current Medications Medications Dose Ordered Sig/Marlen Route Start Time Stop Time Status Last Admin Dose Admin Ondansetron HCl 4 mg Q4HP PRN IV 08/26/24 17:45 Docusate Sodium 100 mg BIDPRN PRN PO 08/26/24 17:45 Diagnostic Test (Pha) 1 strip Q6HR 08/26/24 18:00 08/28/24 12:00 1 STRIP Dextrose 50 ml UD PRN IV 08/26/24 17:45 Acetaminophen 325 mg Q4HP PRN PO 08/26/24 17:45 Lisinopril 20 mg DAILY PO 08/27/24 10:00 Aspirin 81 mg DAILY PO 08/27/24 10:00 Levothyroxine Sodium 25 mcg QAM@0600 PO 08/27/24 06:00 Carbidopa/Levodopa 1 tab TID PO 08/27/24 22:00 Thiamine HCl 100 mg DAILY PO 08/28/24 10:00 Multivitamins 1 tab DAILY PO 08/28/24 10:00 Pantoprazole Sodium 40 mg DAILY IV 08/28/24 10:00 Amino Acid Protein 30 ml DAILY PO 08/28/24 10:00 Enteral Nutritional Formula 27.5 gm BID PO 08/28/24 10:00 Dextrose/Sodium Chloride 1,000 ml @ 75 mls/hr [id number] IV 08/28/24 09:30 08/28/24 09:30 75 MLS/HR Hydralazine HCl 10 mg Q6HP PRN IV 08/28/24 12:45 Vancomycin HCl 0 ml @ 0 mls/hr UD IV 08/28/24 12:30 UNV Meropenem 50 ml @ 17 mls/hr Q12HR IV 08/28/24 12:47 Laboratory Results Laboratory Tests 08/28/24 04:50 Chemistry Test 08/28/24 04:50 Albumin 3.5 g/dL (3.2-4.8) Calcium Level 8.5 mg/dL (8.7-10.4) L Total Protein 6.9 g/dL (5.7-8.2) LFT Test 08/28/24 04:50 Alanine Aminotransferase (ALT) < 9 U/L (7-40) Alkaline Phosphatase 86 U/L (46-116) Aspartate Amino Transferase (AST) 21 U/L (13-40) Total Bilirubin 0.4 mg/dL (0.2-1.0) Urinalysis Test 08/26/24 15:50 Urine Color Light-yellow (Yellow) Urine Clarity Clear (Clear) Urine pH 6.0 (5.0-9.0) Urine Specific [place] 1.014 (1.001-1.035) Urine Protein Trace (Negative) H Urine Ketones 2+ (Negative) H Urine Blood Negative /uL (Negative) Urine Nitrite Negative (Negative) Urine Bilirubin Negative (Negative) Urine Urobilinogen Normal mg/dL (Negative) Urine Leukocyte Esterase Negative /uL (Negative) Urine RBC <1 /hpf (0 - 4) Urine Microscopic WBC 3 /HPF (0-5) Urine Squamous Epithelial Cells Few /hpf (<5) Urine Bacteria None seen /hpf (None Seen) Urine Mucus Few (None Seen) Urine Glucose Normal mg/dL (Normal) Blood Gas Results Test 08/27/24 14:43 Arterial Blood pH 7.393 (7.350-7.450) FiO2 % 32.0 Microbiology Microbiology Date/Time Source Procedure Growth Status 08/27/24 13:21 Blood Blood Culture - Preliminary Resulted Labs and/or images reviewed: Labs reviewed by me, Image(s) reviewed by me Assessment/Plan Assessment/Plan 08/28-severe hypokalemia repleted with Ja cornell. Unable to get MRI due to kyphosis. CT head pending to re-evaluate the left facial droop possible stroke/CVA. Broad-spectrum antibiotics escalate to vanc Merrem. Unable to give NG tube due to kyphosis inpatient not following commands. Unable to give p.o. meds/Parkinson's meds. Holding Seroquel. Unable to consult Neurology, no neurology service. We will try transfer to higher level care for neuro. We will start PICC line. Continue maintenance fluids D5 half-normal saline 75 cc. We will start PPN today, PICC line for eventual transition to TPN.. Per family patient's baseline is A&O times 3-4 and full conversational/speaks full sentences. acute toxic metabolic encephalopathy, due to below - see below causes sepsis due to below - on abx unasyn.. bacteremia ruleout. cont tx possible contuning complicated cystiits as below. bacteremia ruleout hypoglycemia- d5/halfNS gtt 75cc for 1L. and prn thereafter. starvation ketosis- patient has been npo. unable to tolerate her meds since sent home. recent complicated cystitis - sp meropenem, now unasyn stroke, likely, will rule out - past 24hr window, no need tele neuro right now - will get CT head and MRI brain iatrogenic /polypharmacy? - stop seroquel. no neuro available to do med rec or ruleout neurological causes/parkinson related causes of AMS parkinsons/dementia/ npo status - NG tube insert . continue home meds poor prognosis full code per daughter at bedside diet npo tele Plan discussed with: Spouse My Orders Orders - PERRY GROSS MD Procedure Category Date Status Time Abg W/ Co-Ox RT 08/27/24 Logged 14:32 * Swallow Request ST 08/27/24 Transmitted 14:46 Npo (Nothing By DIET 08/27/24 Transmitted Mouth) Diet Dinner Carbidopa W Levodopa PHA 08/27/24 In Process 25/100mg (Sinemet 2 22:00 Thiamine Tab PHA 08/28/24 In Process 10:00 Multiple Vitamin PHA 08/28/24 In Process Tablet (Mvi Tab) 10:00 Pantoprazole PHA 08/28/24 In Process (Protonix) 10:00 Free T4 (Free LAB 08/28/24 In Process Thyroxine) 04:00 Vitamin B12 LAB 08/28/24 In Process 04:00 * Dietary Consult CONS 08/27/24 Transmitted 22:42 Notify Provider NOTICE 08/28/24 Transmitted Malnutrition 08:15 Nutritional NOURISH 08/28/24 Transmitted Supplements 08:15 Amino Acids-Protein PHA 08/28/24 In Process Hydrolysat (Pro-Stat 10:00 Nutritional PHA 08/28/24 In Process Supplements (Kaleb 10:00 D5w/Sod Chl 0.45% PHA 08/28/24 In Process (D5w 1/2ns) 09:30 Blood Culture GISSELLE 08/29/24 Logged 04:28 Place Ng ORDERS 08/28/24 Transmitted 09:35 Potassium Chloride PHA 08/28/24 In Process (Potassium Chloride). 12:30 Hydralazine Injection PHA 08/28/24 In Process (Apresoline Inject 12:45 Vancomycin Per PHA 08/28/24 Pending Pharmacy 12:30 Meropenem 1gm Ivpb PHA 08/28/24 In Process (Merrem 1gm/ Ns) 12:47 Date of Service: August 28, 2024 Billing Provider: PERRY GROSS MD Common Visit Codes: [id number] INP/OBS CARE(HIGH) PERRY GROSS MD August 28, 2024 13:30
[2024-08-28] MEDS: POTASSIUM CHLORIDE 80 MEQ, LIDOCAINE 1% (LOCAL ANESTH.) 6 ML in SODIUM CHL 0.9% 500 ML IV ONE (14:20)
[2024-08-28] MEDS: VANCOMYCIN 1GM/200ML PM 200 ML IV SCH (18:20)
[2024-08-29] VITALS (8 sets, daily range): BP systolic 107–151; BP diastolic 55–84; PULSE 60–90; RESP 14–18; TEMP 97.2–98.4; O2SAT 92–100
[2024-08-29] MEDS: DEXTROSE (50%) 50ML SYRG IV PRN
[2024-08-29] MEDS: MEROPENEM 1GM IVPB 50 ML IV SCH (01:04)
[2024-08-29 05:48] LABS: Basophils # (auto) 0 10 ^3/uL (0-0.2); Basophils % (auto) 0.6 % (0.0-2.0); Eosinophils # (auto) 0.2 10 ^3/uL (0-0.8); Eosinophils % (auto) 3.5 % (0.0-7.0); Hematocrit 35.5 % (36.0-46.0); Hemoglobin 11.2 g/dL (12.2-16.2); Lymphocytes # (auto) 1.1 10 ^3/uL (0.4-5.4); Lymphocytes % (auto) 20.4 % (10.0-50.0); Mean Corpuscular Hemoglobin 23.9 pg (28.0-32.0); Mean Corpuscular Hgb Conc. 31.5 g/dL (32.0-36.0); Mean Corpuscular Volume 75.9 fL (80.0-100.0); Monocytes # (auto) 0.5 10 ^3/uL (0-1.3); Monocytes % (auto) 8.7 % (0.0-12.0); Neutrophils # (auto) 3.6 10 ^3/uL (1.6-8.6); Neutrophils % (auto) 66.8 % (37.0-80.0); Nucleated Red Blood Cells % 0.1 %; Platelet Count (auto) 286 10^3/uL (140-450); Red Blood Cells 4.68 10^6/uL (4.0-5.20); Red Cell Distribution Width 15.7 % (11.8-14.3); White Blood Cell 5.4 10^3/uL (4.4-10.8)
[2024-08-29 06:00] LABS: INR 1.15 (0.9-1.15); Partial Thromboplastin Time 29.3 SEC (24.5-34.5)
[2024-08-29 06:04] LABS: Albumin 3.6 g/dL (3.2-4.8); Alkaline Phosphatase 84 U/L (46-116); Anion Gap 10 (5-15); Aspartate Aminotransferase 17 U/L (13-40); Bilirubin, Total 0.4 mg/dL (0.2-1.0); Carbon Dioxide 25 mmol/L (20-31); Glucose 75 mg/dL (74-106); Total Protein 6.9 g/dL (5.7-8.2)
[2024-08-29 06:09] LABS: Alanine Aminotransferase < 9 U/L (7-40); Blood Urea Nitrogen 6 mg/dL (9-23); Chloride 112 mmol/L (98-107); Potassium 3.4 mmol/L (3.5-5.1); Sodium 147 mmol/L (136-145)
--- NOTE | 2024-08-29 13:23 | DVHPN2 ---
Subjective some improvment. with CTM and CPT. continue treatment. hpi and ros from daughter Reviewed: H&P Changes from previous H/P or p: No Changes General: Per HPI Eyes: No Pain, No Vision change, No Conjunctivae inflammation, No Eyelid inflammation, No Other, No Redness ENT: No Ear pain, No Ear discharge, No Nose pain, No Nose discharge, No Nose congestion, No Mouth pain, No Mouth swelling, No Throat pain, No Throat swelling, No Other Cardiovascular: No Chest Pain, No Palpitations, No Orthopnea, No Paroxysmal Noc. Dyspnea, No Edema, No Lt Headedness, No Other Respiratory: No Cough, No Dry, No Shortness of breath, No SOB with excertion, No Wheezing, No Hemoptysis, No Pleuritic Pain, No Sputum, No Other Gastrointestinal: No Nausea, No Vomiting, No Abdominal Pain, No Diarrhea, No Constipation, No Melena, No Hematochezia, No Other Genitourinary: No Dysuria, No Frequency, No Incontinence, No Hematuria, No Retention, No Other Musculoskeletal: No other, No neck pain, No shoulder pain, No arm pain, No back pain, No hand pain, No leg pain, No foot pain Skin: No Rash, No Lesions, No Jaundice, No Bruising, No Other Objective Vitals Vital Signs Date Time Temp Pulse Resp B/P (MAP) Pulse Ox O2 Delivery O2 Flow Rate FiO2 08/29/24 10:00 121/71 08/29/24 09:00 98.1 78 14 96 98.1 08/29/24 08:05 Nasal Cannula* 3 32 Intake/Output Intake and Output 08/29/24 07:00 Intake Total 50 ml Output Total 700 ml Balance -650 ml Intake Oral 0 ml IV Total 50 ml Output Urine Total 700 ml # Bowel Movements 2 Exam following some commands. reflexes present left facial //eyelid droop General Appearance: Alert, Cooperative, No acute distress, poor alert status HEENT: Atraumatic, PERRLA, EOMI, Mucous membr. moist/pink Respiratory: Clear to auscultation, Normal air movement Cardiovascular: Regular rate, Normal S1, Normal S2, No murmurs Abdominal: Normal bowel sounds, Soft, No tenderness, No hepatospenomegaly, No masses Extremities: No clubbing, No cyanosis, No edema, Normal pulses, No tenderness/swelling Skin: No rashes, No breakdown, No significant lesion Medications Current Medications Medications Dose Ordered Sig/Marlen Route Start Time Stop Time Status Last Admin Dose Admin Ondansetron HCl 4 mg Q4HP PRN IV 08/26/24 17:45 Docusate Sodium 100 mg BIDPRN PRN PO 08/26/24 17:45 Diagnostic Test (Pha) 1 strip Q6HR 08/26/24 18:00 08/29/24 11:53 1 STRIP Dextrose 50 ml UD PRN IV 08/26/24 17:45 08/29/24 00:00 50 ML Acetaminophen 325 mg Q4HP PRN PO 08/26/24 17:45 Lisinopril 20 mg DAILY PO 08/27/24 10:00 Aspirin 81 mg DAILY PO 08/27/24 10:00 Levothyroxine Sodium 25 mcg QAM@0600 PO 08/27/24 06:00 Carbidopa/Levodopa 1 tab TID PO 08/27/24 22:00 Thiamine HCl 100 mg DAILY PO 08/28/24 10:00 Multivitamins 1 tab DAILY PO 08/28/24 10:00 Pantoprazole Sodium 40 mg DAILY IV 08/28/24 10:00 08/29/24 11:42 40 MG Amino Acid Protein 30 ml DAILY PO 08/28/24 10:00 Enteral Nutritional Formula 27.5 gm BID PO 08/28/24 10:00 Dextrose/Sodium Chloride 1,000 ml @ 75 mls/hr [id number] IV 08/28/24 09:30 08/29/24 06:42 75 MLS/HR Hydralazine HCl 10 mg Q6HP PRN IV 08/28/24 12:45 Vancomycin HCl 0 ml @ 0 mls/hr UD IV 08/28/24 12:30 Vancomycin HCl 200 ml @ 160 mls/hr Q12H IV 08/28/24 17:00 08/29/24 05:03 160 MLS/HR Meropenem 50 ml @ 17 mls/hr Q12H IV 08/29/24 01:30 08/29/24 01:04 17 MLS/HR Laboratory Results Laboratory Tests 08/29/24 05:35 Chemistry Test 08/29/24 05:35 Albumin 3.6 g/dL (3.2-4.8) Calcium Level 9.0 mg/dL (8.7-10.4) Total Protein 6.9 g/dL (5.7-8.2) Coagulation Test 08/29/24 05:35 Prothrombin Time 12.0 sec (9.3-11.8) H Prothrombin Time INR 1.15 (0.9-1.15) Activated Partial Thromboplast Time 29.3 SEC (24.5-34.5) LFT Test 08/29/24 05:35 Alanine Aminotransferase (ALT) < 9 U/L (7-40) Alkaline Phosphatase 84 U/L (46-116) Aspartate Amino Transferase (AST) 17 U/L (13-40) Total Bilirubin 0.4 mg/dL (0.2-1.0) Urinalysis Test 08/26/24 15:50 Urine Color Light-yellow (Yellow) Urine Clarity Clear (Clear) Urine pH 6.0 (5.0-9.0) Urine Specific [place] 1.014 (1.001-1.035) Urine Protein Trace (Negative) H Urine Ketones 2+ (Negative) H Urine Blood Negative /uL (Negative) Urine Nitrite Negative (Negative) Urine Bilirubin Negative (Negative) Urine Urobilinogen Normal mg/dL (Negative) Urine Leukocyte Esterase Negative /uL (Negative) Urine RBC <1 /hpf (0 - 4) Urine Microscopic WBC 3 /HPF (0-5) Urine Squamous Epithelial Cells Few /hpf (<5) Urine Bacteria None seen /hpf (None Seen) Urine Mucus Few (None Seen) Urine Glucose Normal mg/dL (Normal) Microbiology Microbiology Date/Time Source Procedure Growth Status 08/27/24 13:21 Blood Blood Culture - Preliminary Resulted Labs and/or images reviewed: Labs reviewed by me, Image(s) reviewed by me Assessment/Plan Assessment/Plan 08/28-severe hypokalemia repleted with Ja cornell. Unable to get MRI due to kyphosis. CT head pending to re-evaluate the left facial droop possible stroke/CVA. Broad-spectrum antibiotics escalate to vanc Merrem. Unable to give NG tube due to kyphosis inpatient not following commands. Unable to give p.o. meds/Parkinson's meds. Holding Seroquel. Unable to consult Neurology, no neurology service. We will try transfer to higher level care for neuro. We will start PICC line. Continue maintenance fluids D5 half-normal saline 75 cc. We will start PPN today, PICC line for eventual transition to TPN.. Per family patient's baseline is A&O times 3-4 and full conversational/speaks full sentences. 08/29 CT head or was not placed yesterday, we will do today. Still no NG tube we will need PICC line 2 2 PPN to TPN transfer. Continue transfer to [facility] for neurology eval. Continue broad-spectrum antibiotics. Becoming hypernatremic we will need to continue D5 half-normal. She has bacteremia with Gram-positive cocci in clusters resembling staph likely, we have patient on broad-spectrum antibiotics vancomycin/meropenem repeat blood cultures done on 08/29 a.m. draw, we will follow up in pending. Patient appears to be more awake today, we will try bedside swallow with RN and offer ice chips if needed thereafter. Family has left bedside unable to update them on the plan today. PICC line form signed acute toxic metabolic encephalopathy, due to below sepsis due to below bacteremia ruleout hypoglycemia starvation ketosis- recent complicated cystitis stroke, likely, will rule out iatrogenic /polypharmacy? parkinsons/dementia/ npo status - on abx unasyn.. bacteremia ruleout. cont tx possible contuning complicated cystiits as below. - d5/halfNS gtt 75cc patient has been npo. unable to tolerate her meds since sent home. 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 Vancomycin meropenem. Prior unasyn - for stroke past 24hr window, no need tele neuro right now - will get CT head -- stop seroquel. no neuro available to do med rec or ruleout neurological causes/parkinson related causes of AMS - NG tube insert failed, unable to give carbidopa levodopa. Needs neurology transfer for Neurology to [facility] poor prognosis full code per daughter at bedside diet npo tele Plan discussed with: Other My Orders Orders - PERRY GROSS MD Procedure Category Date Status Time Vancomycin 1gm/200ml PHA 08/28/24 In Process Pm 17:00 Vancomycin,Trough LAB 08/30/24 Verified 04:00 Vancomycin Per CELESTE 08/28/24 In Process Pharmacy Protoc 14:33 * Live Out [facility]anny CONS 08/28/24 Transmitted Consult * Picc Line Consult CONS 08/28/24 Transmitted 16:12 Meropenem 1gm Ivpb PHA 08/29/24 In Process (Merrem 1gm/ Ns) 01:[address] 08/29/24 Transmitted 13:19 Date of Service: August 29, 2024 Billing Provider: PERRY GROSS MD Common Visit Codes: [id number] INP/OBS CARE(HIGH) PERRY GROSS MD August 29, 2024 13:23
[2024-08-29] MEDS: LIDOCAINE 1% (LOCAL ANESTH.) PF 5ml SDV ID ONE (15:30)
--- NOTE | 2024-08-29 18:18 | DVH ---
EXAM: CT HEAD WITHOUT CONTRAST HISTORY: repeat CT head for stroke (unable to MRI) COMPARISON: CT HEAD WITHOUT CONTRAST on DOS: 08/26/24, CT HEAD WITHOUT CONTRAST on DOS: 08/17/24, HEAD W ITHOUT CONTRAST on DOS: 12/15/20 TECHNIQUE: Axial images were obtained and reformatted in coronal and sagittal planes. All CT scans at this medical facility are performed using dose modulation techniques as appropriate t o a performed exam including the following: Automated exposure control was utilized; adjustment of th e MA and/or KV according to patient size; and use of iterative reconstruction technique. CT Dose: CTDI volume is 67.81 mGy. Dose-length product is 1335.94 mGy*cm FINDINGS: Supratentorial Region: No evidence for large acute territorial ischemia. No intracranial hemorrhage is noted. Posterior Fossa: No acute abnormality. Brainstem: Unremarkable. Sellar/Suprasellar Region: Unremarkable. Ventricles, Cisterns, Sulci: Age-appropriate. Orbits: Unremarkable. Paranasal Sinuses: Unremarkable. Mastoid Air Cells: Unremarkable. Vasculature: Unremarkable. Bones/Soft Tissues: No acute abnormality. Other: None. IMPRESSION: 1. No acute intracranial process.
--- NOTE | 2024-08-29 18:40 | DVH ---
CHEST RADIOGRAPH Indication: PICC tip placement Technique: Single frontal view of the chest was obtained Comparison: XY CHEST PORTABLE on DOS: 08/26/24, CHEST PORTABLE on DOS: 12/15/20, CXRP on DOS: 12/15/20 FINDINGS: Lines and Tubes: PICC line from left arm in place in the superior vena cava. Lungs: Diffuse bilateral airspace disease Pleura: No effusion. No pneumothorax. Cardiomediastinal contours: Cardiomegaly Bones: No acute osseous abnormality. IMPRESSION: 1. PICC line from left arm in place in superior vena cava. 2. Diffuse bilateral pulmonary airspace disease.
--- NOTE | 2024-08-29 19:03 | DVH ---
CHEST RADIOGRAPH Indication: Replaced short PICC added 6 cm to line. Technique: Single frontal view of the chest was obtained Comparison: XY CHEST XRAY 1 VIEW on DOS: 08/29/24, XY CHEST PORTABLE on DOS: 08/26/24, CHEST PORTABLE o n DOS: 12/15/20 FINDINGS: Lines and Tubes: Left upper extremity PICC terminating within the right atrium. Lungs: Interstitial and alveolar type opacities of bilateral lungs obscuration of the left hemidiaphr agm. No pneumothorax. Cardiomediastinal contours: [id number] cardiomegaly Bones: No acute osseous abnormality. IMPRESSION: Left upper extremity PICC terminating within the right atrium. If desired location is in the superio r cavoatrial junction, consider pulling back about 3 cm. Interstitial and alveolar type opacities of bilateral lungs which may represent multifocal pneumonia/ pulmonary edema ; slightly worsened from prior imaging.
[2024-08-29] MEDS: SODIUM CHLOR 0.9% PF (SALINE LOCK) 10ML VIAL/SYR IV SCH (21:49)
[2024-08-30 01:00] VITALS: BP 152/89; PULSE 100; RESP 18; TEMP 97.9; O2SAT 93
[2024-08-30 05:00] VITALS: BP 130/93; PULSE 84; RESP 18; TEMP 97.7; O2SAT 92
[2024-08-30 06:56] LABS: Basophils # (auto) 0.1 10 ^3/uL (0-0.2); Eosinophils # (auto) 0.3 10 ^3/uL (0-0.8); Eosinophils % (auto) 4.8 % (0.0-7.0); Hematocrit 32.6 % (36.0-46.0); Hemoglobin 10.4 g/dL (12.2-16.2); Mean Corpuscular Hemoglobin 24.2 pg (28.0-32.0); Mean Corpuscular Volume 75.6 fL (80.0-100.0); Monocytes # (auto) 0.5 10 ^3/uL (0-1.3); Monocytes % (auto) 7.6 % (0.0-12.0); Neutrophils # (auto) 4.3 10 ^3/uL (1.6-8.6); Neutrophils % (auto) 70.6 % (37.0-80.0); Nucleated Red Blood Cells % 0.1 %; Platelet Count (auto) 266 10^3/uL (140-450); Red Blood Cells 4.31 10^6/uL (4.0-5.20); Red Cell Distribution Width 15.5 % (11.8-14.3); White Blood Cell 6.1 10^3/uL (4.4-10.8)
[2024-08-30 07:10] LABS: Albumin 3.3 g/dL (3.2-4.8); Alkaline Phosphatase 80 U/L (46-116); Anion Gap 10 (5-15); Aspartate Aminotransferase 21 U/L (13-40); Carbon Dioxide 23 mmol/L (20-31); Glucose 74 mg/dL (74-106); Sodium 144 mmol/L (136-145); Total Protein 6.2 g/dL (5.7-8.2)
[2024-08-30 07:19] LABS: Alanine Aminotransferase < 9 U/L (7-40); BUN/Creatinine Ratio 13.9 (10.0-20.0); Blood Urea Nitrogen < 5 mg/dL (9-23); Calcium 8.5 mg/dL (8.7-10.4); Chloride 111 mmol/L (98-107); Potassium 3.4 mmol/L (3.5-5.1)
[2024-08-30 08:20] LABS: Bilirubin, Total 0.4 mg/dL (0.2-1.0)
[2024-08-30 09:00] VITALS: BP 131/56; PULSE 82; RESP 19; TEMP 98.6; O2SAT 95
[2024-08-30 10:30] LABS: Free T4 (Free Thyroxine) 0.94 ng/dL (0.89-1.76)
--- NOTE | 2024-08-30 11:12 | DVHPN2 ---
Subjective some improvment. with CTM and CPT. continue treatment. hpi and ros from daughter Reviewed: H&P Changes from previous H/P or p: No Changes General: Per HPI Objective Vitals Vital Signs Date Time Temp Pulse Resp B/P (MAP) Pulse Ox O2 Delivery O2 Flow Rate FiO2 08/30/24 09:00 98.6 82 19 131/56 (81) 95 98.6 08/30/24 08:00 Room Air* 0 21 Intake/Output Intake and Output 08/30/24 07:00 Intake Total 50 ml Output Total 1300 ml Balance -1250 ml Intake Oral 0 ml IV Total 50 ml Output Urine Total 1300 ml Exam following some commands. reflexes present left facial //eyelid droop General Appearance: Alert, Cooperative, No acute distress, poor alert status HEENT: Atraumatic, PERRLA, EOMI, Mucous membr. moist/pink Respiratory: Clear to auscultation, Normal air movement Cardiovascular: Regular rate, Normal S1, Normal S2, No murmurs Abdominal: Normal bowel sounds, Soft, No tenderness, No hepatospenomegaly, No masses Extremities: No clubbing, No cyanosis, No edema, Normal pulses, No tenderness/swelling Skin: No rashes, No breakdown, No significant lesion Medications Current Medications Medications Dose Ordered Sig/Marlen Route Start Time Stop Time Status Last Admin Dose Admin Ondansetron HCl 4 mg Q4HP PRN IV 08/26/24 17:45 Docusate Sodium 100 mg BIDPRN PRN PO 08/26/24 17:45 Diagnostic Test (Pha) 1 strip Q6HR 08/26/24 18:00 08/30/24 06:00 1 STRIP Dextrose 50 ml UD PRN IV 08/26/24 17:45 08/29/24 00:00 50 ML Acetaminophen 325 mg Q4HP PRN PO 08/26/24 17:45 Lisinopril 20 mg DAILY PO 08/27/24 10:00 Aspirin 81 mg DAILY PO 08/27/24 10:00 Levothyroxine Sodium 25 mcg QAM@0600 PO 08/27/24 06:00 Carbidopa/Levodopa 1 tab TID PO 08/27/24 22:00 Thiamine HCl 100 mg DAILY PO 08/28/24 10:00 Multivitamins 1 tab DAILY PO 08/28/24 10:00 Pantoprazole Sodium 40 mg DAILY IV 08/28/24 10:00 08/30/24 08:21 40 MG Amino Acid Protein 30 ml DAILY PO 08/28/24 10:00 Enteral Nutritional Formula 27.5 gm BID PO 08/28/24 10:00 Dextrose/Sodium Chloride 1,000 ml @ 75 mls/hr [id number] IV 08/28/24 09:30 08/29/24 23:45 75 MLS/HR Hydralazine HCl 10 mg Q6HP PRN IV 08/28/24 12:45 Vancomycin HCl 0 ml @ 0 mls/hr UD IV 08/28/24 12:30 Meropenem 50 ml @ 17 mls/hr Q12H IV 08/29/24 01:30 08/30/24 01:15 17 MLS/HR Sodium Chloride 10 ml QSHIFT@10,22 IV 08/29/24 22:00 08/30/24 08:27 10 ML Thiamine HCl 100 mg DAILY IV 08/30/24 14:00 09/03/24 13:59 UNV Vancomycin HCl 200 ml @ 160 mls/hr Q12H IV 08/30/24 20:00 Laboratory Results Laboratory Tests 08/30/24 05:15 Chemistry Test 08/30/24 05:15 Albumin 3.3 g/dL (3.2-4.8) Calcium Level 8.5 mg/dL (8.7-10.4) L Total Protein 6.2 g/dL (5.7-8.2) LFT Test 08/30/24 05:15 Alanine Aminotransferase (ALT) < 9 U/L (7-40) Alkaline Phosphatase 80 U/L (46-116) Aspartate Amino Transferase (AST) 21 U/L (13-40) Total Bilirubin 0.4 mg/dL (0.2-1.0) Urinalysis Test 08/26/24 15:50 Urine Color Light-yellow (Yellow) Urine Clarity Clear (Clear) Urine pH 6.0 (5.0-9.0) Urine Specific [place] 1.014 (1.001-1.035) Urine Protein Trace (Negative) H Urine Ketones 2+ (Negative) H Urine Blood Negative /uL (Negative) Urine Nitrite Negative (Negative) Urine Bilirubin Negative (Negative) Urine Urobilinogen Normal mg/dL (Negative) Urine Leukocyte Esterase Negative /uL (Negative) Urine RBC <1 /hpf (0 - 4) Urine Microscopic WBC 3 /HPF (0-5) Urine Squamous Epithelial Cells Few /hpf (<5) Urine Bacteria None seen /hpf (None Seen) Urine Mucus Few (None Seen) Urine Glucose Normal mg/dL (Normal) Microbiology Microbiology Date/Time Source Procedure Growth Status 08/29/24 05:35 Blood Blood Culture - Preliminary NO GROWTH AFTER 24 HOURS OF INCUBATION. Resulted Labs and/or images reviewed: Labs reviewed by me, Image(s) reviewed by me Assessment/Plan Assessment/Plan 08/28-severe hypokalemia repleted with Ja corenll. Unable to get MRI due to kyphosis. CT head pending to re-evaluate the left facial droop possible stroke/CVA. Broad-spectrum antibiotics escalate to vanc Merrem. Unable to give NG tube due to kyphosis inpatient not following commands. Unable to give p.o. meds/Parkinson's meds. Holding Seroquel. Unable to consult Neurology, no neurology service. We will try transfer to higher level care for neuro. We will start PICC line. Continue maintenance fluids D5 half-normal saline 75 cc. We will start PPN today, PICC line for eventual transition to TPN.. Per family patient's baseline is A&O times 3-4 and full conversational/speaks full sentences. 08/29 CT head or was not placed yesterday, we will do today. Still no NG tube we will need PICC line 2 2 PPN to TPN transfer. Continue transfer to [facility] for neurology eval. Continue broad-spectrum antibiotics. Becoming hypernatremic we will need to continue D5 half-normal. She has bacteremia with Gram-positive cocci in clusters resembling staph likely, we have patient on broad-spectrum antibiotics vancomycin/meropenem repeat blood cultures done on 08/29 a.m. draw, we will follow up in pending. Patient appears to be more awake today, we will try bedside swallow with RN and offer ice chips if needed thereafter. Family has left bedside unable to update them on the plan today. PICC line form signed 08/30 continues to improve, today speech is more comprehensible. we are giving 75 cc D5 half-normal saline but patient continues to remain low glucose. We will do workup for insulinoma (insulin level, C-peptide level, beta hydroxy butyrate). We will follow up on TSH/free T4, a.m. cortisol tomorrow, we will start IV B1/thiamine. Continue to TPN today has PICC line has been inserted. Continue IV antibiotics vancomycin/Merrem. Continue transfer for neurology eval. OVERNIGHT ASSOCIATE trial today if tolerates p.o. we need start p.o. parkinsons medications. Story is unclear with family as to what is the baseline of patient, some mixed picture of this which could be a waxing waning symptoms, if so this could be a baseline for patient ASSESSMENT acute toxic metabolic encephalopathy, due to below sepsis due to below bacteremia ruleout hypoglycemia starvation ketosis- recent complicated cystitis stroke, likely, will rule out iatrogenic /polypharmacy? parkinsons/dementia/ npo status PLAN - on abx unasyn.. bacteremia ruleout. cont tx possible contuning complicated cystiits as below. - d5/halfNS gtt 75cc patient has been npo. unable to tolerate her meds since sent home. Unable to insert a NG tube, OVERNIGHT ASSOCIATE eval pending - on broad-spectrum antibiotics . Vancomycin meropenem. Prior unasyn - for stroke past 24hr window, no need tele neuro right now - will get CT head -- stop seroquel. no neuro available to do med rec or ruleout neurological causes/parkinson related causes of AMS - NG tube insert failed, unable to give carbidopa levodopa. Needs neurology transfer for Neurology to [facility] diet npo tele gi - protonix dvt- lovenox poor prognosis full code per daughter at bedside Plan discussed with: Patient, Other My Orders Orders - PERRY GROSS MD Procedure Category Date Status Time Head Without Contrast CT 08/29/24 Resulted 13:19 * Swallow Request ST 08/29/24 Transmitted 15:57 Chest Xray 1 View XY 08/29/24 Resulted 16:12 Chest Portable XY 08/29/24 Resulted 18:16 Change Dressing Prn CELESTE 08/29/24 In Process 18:21 Sodium Chloride Lock PHA 08/29/24 In Process (Saline Lock Ns) 22:00 Do Not Use Picc For CELESTE 08/29/24 In Process Blood Cult 18:21 May Draw Blood From CELESTE 08/29/24 In Process Picc 18:21 Ok To Use Picc CELESTE 08/29/24 In Process 18:21 Change Picc Dressing CELESTE 08/29/24 In Process Q7 Days 18:21 Blood Culture GISSELLE 08/30/24 In Process 09:29 Cortisol Am LAB 08/31/24 Verified 04:00 Thiamine Inj PHA 08/30/24 Logged 14:00 Insulin LAB 08/30/24 Logged 11:05 C-Peptide LAB 08/30/24 Logged 11:05 Beta-Hydroxybutyrate LAB 08/30/24 Logged 11:05 Vancomycin 1gm/200ml PHA 08/30/24 In Process Pm 20:00 Date of Service: August 30, 2024 Billing Provider: PERRY GROSS MD Common Visit Codes: [id number] INP/OBS CARE(HIGH) PERRY GROSS MD August 30, 2024 11:12
[2024-08-30] MEDS: THIAMINE 100mg/ml INJ (200mg/2ml VIAL) IV SCH (14:44)
[2024-08-30 17:00] VITALS: BP 148/69; PULSE 78; RESP 18; TEMP 98.6; O2SAT 95
[2024-08-30] MEDS: VANCOMYCIN 1GM/200ML PM 200 ML IV SCH (20:01)
[2024-08-30 20:44] VITALS: BP 117/57; PULSE 84; RESP 18; TEMP 98.4; O2SAT 98
[2024-08-31 01:00] VITALS: BP 135/62; PULSE 85; RESP 18; TEMP 98.2; O2SAT 94
[2024-08-31 05:00] VITALS: BP 141/56; PULSE 79; RESP 16; TEMP 97.9; O2SAT 94
[2024-08-31 06:39] LABS: Alkaline Phosphatase 77 U/L (46-116); Anion Gap 10 (5-15); Aspartate Aminotransferase 16 U/L (13-40); Carbon Dioxide 23 mmol/L (20-31); Glucose 86 mg/dL (74-106); Sodium 143 mmol/L (136-145); Total Protein 6.4 g/dL (5.7-8.2)
[2024-08-31 06:40] LABS: Bilirubin, Total 0.4 mg/dL (0.2-1.0)
[2024-08-31 06:41] LABS: Alanine Aminotransferase < 9 U/L (7-40); Albumin 3.1 g/dL (3.2-4.8); BUN/Creatinine Ratio 10.2 (10.0-20.0); Blood Urea Nitrogen < 5 mg/dL (9-23); Calcium 8.5 mg/dL (8.7-10.4); Chloride 110 mmol/L (98-107); Potassium 3.1 mmol/L (3.5-5.1)
[2024-08-31 09:00] VITALS: BP 151/47; PULSE 86; RESP 16; TEMP 98.4; O2SAT 95
--- NOTE | 2024-08-31 09:35 | DVHPN2 ---
Subjective some improvment. with CTM and CPT. continue treatment. hpi and ros from daughter Reviewed: H&P Changes from previous H/P or p: No Changes General: Per HPI Objective Vitals Vital Signs Date Time Temp Pulse Resp B/P (MAP) Pulse Ox O2 Delivery O2 Flow Rate FiO2 08/31/24 08:03 Room Air* 0 21 08/31/24 05:00 97.9 79 16 141/56 (84) 94 97.9 Intake/Output Intake and Output 08/31/24 07:00 Intake Total 970 ml Output Total 1350 ml Balance -380 ml Intake Oral 0 ml IV Total 250 ml Other 720 ml Output Urine Total 1350 ml # Bowel Movements 1 Exam following some commands. reflexes present left facial //eyelid droop General Appearance: Alert, Cooperative, No acute distress, poor alert status HEENT: Atraumatic, PERRLA, EOMI, Mucous membr. moist/pink Respiratory: Clear to auscultation, Normal air movement Cardiovascular: Regular rate, Normal S1, Normal S2, No murmurs Abdominal: Normal bowel sounds, Soft, No tenderness, No hepatospenomegaly, No masses Extremities: No clubbing, No cyanosis, No edema, Normal pulses, No tenderness/swelling Skin: No rashes, No breakdown, No significant lesion Medications Current Medications Medications Dose Ordered Sig/Marlen Route Start Time Stop Time Status Last Admin Dose Admin Ondansetron HCl 4 mg Q4HP PRN IV 08/26/24 17:45 Docusate Sodium 100 mg BIDPRN PRN PO 08/26/24 17:45 Diagnostic Test (Pha) 1 strip Q6HR 08/26/24 18:00 08/31/24 05:09 1 STRIP Dextrose 50 ml UD PRN IV 08/26/24 17:45 08/29/24 00:00 50 ML Acetaminophen 325 mg Q4HP PRN PO 08/26/24 17:45 Lisinopril 20 mg DAILY PO 08/27/24 10:00 Aspirin 81 mg DAILY PO 08/27/24 10:00 Carbidopa/Levodopa 1 tab TID PO 08/27/24 22:00 Multivitamins 1 tab DAILY PO 08/28/24 10:00 Pantoprazole Sodium 40 mg DAILY IV 08/28/24 10:00 08/30/24 08:21 40 MG Amino Acid Protein 30 ml DAILY PO 08/28/24 10:00 Enteral Nutritional Formula 27.5 gm BID PO 08/28/24 10:00 Dextrose/Sodium Chloride 1,000 ml @ 75 mls/hr [id number] IV 08/28/24 09:30 08/31/24 04:12 75 MLS/HR Hydralazine HCl 10 mg Q6HP PRN IV 08/28/24 12:45 Vancomycin HCl 0 ml @ 0 mls/hr UD IV 08/28/24 12:30 Meropenem 50 ml @ 17 mls/hr Q12H IV 08/29/24 01:30 08/31/24 01:08 17 MLS/HR Sodium Chloride 10 ml QSHIFT@10,22 IV 08/29/24 22:00 08/30/24 22:03 10 ML Thiamine HCl 100 mg DAILY IV 08/30/24 14:00 09/03/24 13:59 08/30/24 14:44 100 MG Vancomycin HCl 200 ml @ 160 mls/hr Q12H IV 08/30/24 20:00 08/31/24 08:00 160 MLS/HR Levothyroxine Sodium 25 mcg DAILY IV 08/31/24 10:00 UNV Laboratory Results Laboratory Tests 08/30/24 05:15 08/31/24 05:24 Chemistry Test 08/31/24 05:24 Albumin 3.1 g/dL (3.2-4.8) L Calcium Level 8.5 mg/dL (8.7-10.4) L Total Protein 6.4 g/dL (5.7-8.2) LFT Test 08/31/24 05:24 Alanine Aminotransferase (ALT) < 9 U/L (7-40) Alkaline Phosphatase 77 U/L (46-116) Aspartate Amino Transferase (AST) 16 U/L (13-40) Total Bilirubin 0.4 mg/dL (0.2-1.0) Urinalysis Test 08/26/24 15:50 Urine Color Light-yellow (Yellow) Urine Clarity Clear (Clear) Urine pH 6.0 (5.0-9.0) Urine Specific [place] 1.014 (1.001-1.035) Urine Protein Trace (Negative) H Urine Ketones 2+ (Negative) H Urine Blood Negative /uL (Negative) Urine Nitrite Negative (Negative) Urine Bilirubin Negative (Negative) Urine Urobilinogen Normal mg/dL (Negative) Urine Leukocyte Esterase Negative /uL (Negative) Urine RBC <1 /hpf (0 - 4) Urine Microscopic WBC 3 /HPF (0-5) Urine Squamous Epithelial Cells Few /hpf (<5) Urine Bacteria None seen /hpf (None Seen) Urine Mucus Few (None Seen) Urine Glucose Normal mg/dL (Normal) Microbiology Microbiology Date/Time Source Procedure Growth Status 08/29/24 05:35 Blood Blood Culture - Preliminary NO GROWTH AFTER 48 HOURS OF INCUBATION. Resulted Labs and/or images reviewed: Labs reviewed by me, Image(s) reviewed by me Assessment/Plan Assessment/Plan 08/28-severe hypokalemia repleted with Ja cornell. Unable to get MRI due to kyphosis. CT head pending to re-evaluate the left facial droop possible stroke/CVA. Broad-spectrum antibiotics escalate to vanc Merrem. Unable to give NG tube due to kyphosis inpatient not following commands. Unable to give p.o. meds/Parkinson's meds. Holding Seroquel. Unable to consult Neurology, no neurology service. We will try transfer to higher level care for neuro. We will start PICC line. Continue maintenance fluids D5 half-normal saline 75 cc. We will start PPN today, PICC line for eventual transition to TPN.. Per family patient's baseline is A&O times 3-4 and full conversational/speaks full sentences. 08/29 CT head or was not placed yesterday, we will do today. Still no NG tube we will need PICC line 2 2 PPN to TPN transfer. Continue transfer to [facility] for neurology eval. Continue broad-spectrum antibiotics. Becoming hypernatremic we will need to continue D5 half-normal. She has bacteremia with Gram-positive cocci in clusters resembling staph likely, we have patient on broad-spectrum antibiotics vancomycin/meropenem repeat blood cultures done on 08/29 a.m. draw, we will follow up in pending. Patient appears to be more awake today, we will try bedside swallow with RN and offer ice chips if needed thereafter. Family has left bedside unable to update them on the plan today. PICC line form signed 08/30 continues to improve, today speech is more comprehensible. we are giving 75 cc D5 half-normal saline but patient continues to remain low glucose. We will do workup for insulinoma (insulin level, C-peptide level, beta hydroxy butyrate). We will follow up on TSH/free T4, a.m. cortisol tomorrow, we will start IV B1/thiamine. Continue to TPN today has PICC line has been inserted. Continue IV antibiotics vancomycin/Merrem. Continue transfer for neurology eval. APPLIANCE FIXER trial today if tolerates p.o. we need start p.o. parkinsons medications. Story is unclear with family as to what is the baseline of patient, some mixed picture of this which could be a waxing waning symptoms, if so this could be a baseline for patient 08/31-passed swallow eval, okay for puree. We will start giving p.o. meds with puree foods. TSH high, T4 lower and normal patient needs to be restarted on Synthroid and/or go up on Synthroid dose, we will hold off IV Synthroid and increase on p.o. Synthroid dose. Continue other treatments and follow up on insulinoma labs. Hold off neurology transfer for [facility] ASSESSMENT acute toxic metabolic encephalopathy, due to below sepsis due to below bacteremia ruleout hypoglycemia starvation ketosis- recent complicated cystitis stroke, likely, will rule out iatrogenic /polypharmacy? parkinsons/dementia/ npo status PLAN - on abx unasyn.. bacteremia ruleout. cont tx possible contuning complicated cystiits as below. - d5/halfNS gtt 75cc patient has been npo. unable to tolerate her meds since sent home. Unable to insert a NG tube, APPLIANCE FIXER eval pending - on broad-spectrum antibiotics . Vancomycin meropenem. Prior unasyn - for stroke past 24hr window, no need tele neuro right now - will get CT head -- stop seroquel. no neuro available to do med rec or ruleout neurological causes/parkinson related causes of AMS - NG tube insert failed, unable to give carbidopa levodopa. Needs neurology transfer for Neurology to [facility] diet npo tele gi - protonix dvt- lovenox poor prognosis full code per daughter at bedside Plan discussed with: Patient My Orders Orders - PERRY GROSS MD Procedure Category Date Status Time Thiamine Inj PHA 08/30/24 In Process 14:00 Insulin LAB 08/30/24 In Process 11:05 C-Peptide LAB 08/30/24 In Process 11:05 Vancomycin 1gm/200ml PHA 08/30/24 In Process Pm 20:00 Vancomycin Per CELESTE 08/30/24 In Process Pharmacy [facility] 20:00 Vancomycin,Trough LAB 08/31/24 Logged 19:00 Pureed DIET 08/30/24 Transmitted Dinner Levothyroxine PHA 08/31/24 Logged Injection (Synthroid 10:00 Date of Service: August 31, 2024 Billing Provider: PERRY GROSS MD Common Visit Codes: [id number] INP/OBS CARE(HIGH) PERRY GROSS MD August 31, 2024 09:35
[2024-08-31] MEDS: LEVOTHYROXINE SODIUM 100 MCG/5 ML INJ IV SCH (10:24)
[2024-08-31 13:00] VITALS: BP 159/72; PULSE 86; RESP 16; TEMP 98.4; O2SAT 95
[2024-08-31 13:08] LABS: C-Peptide 1.1 ng/mL (1.1-4.4); Insulin 2.8 uIU/mL (2.6-24.9)
[2024-08-31 17:00] VITALS: BP 138/31; PULSE 82; RESP 18; TEMP 97.1; O2SAT 96
[2024-08-31 21:00] VITALS: BP 98/63; PULSE 113; RESP 18; TEMP 97.4; O2SAT 96
[2024-09-01 01:00] VITALS: BP 143/73; PULSE 79; RESP 18; TEMP 97.8; O2SAT 98
[2024-09-01 05:00] VITALS: BP 142/46; PULSE 77; RESP 18; TEMP 97.7; O2SAT 96
[2024-09-01 05:39] LABS: Sodium 145 mmol/L (136-145)
[2024-09-01 05:40] LABS: Anion Gap 9 (5-15); Carbon Dioxide 25 mmol/L (20-31)
[2024-09-01] MEDS: LEVOTHYROXINE SODIUM 25 MCG TAB PO SCH (05:47)
[2024-09-01 05:53] LABS: Chloride 111 mmol/L (98-107); Glucose 74 mg/dL (74-106); Potassium 2.9 mmol/L (3.5-5.1)
[2024-09-01 05:54] LABS: BUN/Creatinine Ratio 11.6 (10.0-20.0); Blood Urea Nitrogen < 5 mg/dL (9-23); Calcium 8.1 mg/dL (8.7-10.4)
[2024-09-01] MEDS: MAGNESIUM SULFATE 1GM/100ML 100 ML IV ONE (06:44)
[2024-09-01] MEDS: SOD CHL 0.9%/ KCL 40MEQ 1,000 ML IV SCH (06:44)
[2024-09-01 09:00] VITALS: BP 141/53; PULSE 71; RESP 19; TEMP 98.2; O2SAT 96
[2024-09-01] MEDS ORDERED: POTASSIUM CHLORIDE 40 MEQ, LIDOCAINE 1% (LOCAL ANESTH.) 4 ML in SODIUM CHL 0.9% 250 ML IV ONE (09:30)
[2024-09-01] MEDS: VANCOMYCIN 1GM/200ML PM 200 ML IV SCH (09:42)
[2024-09-01] MEDS: OLANZapine 5 MG TAB PO ONE (11:00)
[2024-09-01] MEDS: LEVOTHYROXINE SODIUM 50 MCG TAB PO ONE (12:06)
[2024-09-01 13:00] VITALS: BP 145/74; PULSE 71; PULSE 77; RESP 17; TEMP 97.9; TEMP 98.1; O2SAT 95
--- NOTE | 2024-09-01 15:07 | DVHPN2 ---
Subjective some improvment. with CTM and CPT. continue treatment. hpi and ros from daughter Reviewed: H&P Changes from previous H/P or p: No Changes General: Per HPI Objective Vitals Vital Signs Date Time Temp Pulse Resp B/P (MAP) Pulse Ox O2 Delivery O2 Flow Rate FiO2 09/01/24 13:00 98.1 71 17 145/74 (97) 95 98.1 09/01/24 08:00 Room Air* 0 21 Intake/Output Intake and Output 09/01/24 07:00 Intake Total 470 ml Output Total 2121 ml Balance -1651 ml Intake Oral 420 ml IV Total 50 ml Output Urine Total 2120 ml Stool Total 1 ml Exam following some commands. reflexes present left facial //eyelid droop General Appearance: Alert, Cooperative, No acute distress, poor alert status HEENT: Atraumatic, PERRLA, EOMI, Mucous membr. moist/pink Respiratory: Clear to auscultation, Normal air movement Cardiovascular: Regular rate, Normal S1, Normal S2, No murmurs Abdominal: Normal bowel sounds, Soft, No tenderness, No hepatospenomegaly, No masses Extremities: No clubbing, No cyanosis, No edema, Normal pulses, No tenderness/swelling Skin: No rashes, No breakdown, No significant lesion Medications Current Medications Medications Dose Ordered Sig/Marlen Route Start Time Stop Time Status Last Admin Dose Admin Ondansetron HCl 4 mg Q4HP PRN IV 08/26/24 17:45 Docusate Sodium 100 mg BIDPRN PRN PO 08/26/24 17:45 Diagnostic Test (Pha) 1 strip Q6HR 08/26/24 18:00 09/01/24 11:31 1 STRIP Dextrose 50 ml UD PRN IV 08/26/24 17:45 08/29/24 00:00 50 ML Acetaminophen 325 mg Q4HP PRN PO 08/26/24 17:45 Lisinopril 20 mg DAILY PO 08/27/24 10:00 08/31/24 10:29 20 MG Aspirin 81 mg DAILY PO 08/27/24 10:00 08/31/24 10:29 81 MG Carbidopa/Levodopa 1 tab TID PO 08/27/24 22:00 08/31/24 15:43 1 TAB Multivitamins 1 tab DAILY PO 08/28/24 10:00 08/31/24 10:28 1 TAB Pantoprazole Sodium 40 mg DAILY IV 08/28/24 10:00 09/01/24 09:42 40 MG Amino Acid Protein 30 ml DAILY PO 08/28/24 10:00 08/31/24 10:29 30 ML Enteral Nutritional Formula 27.5 gm BID PO 08/28/24 10:00 09/01/24 09:43 27.5 GM Hydralazine HCl 10 mg Q6HP PRN IV 08/28/24 12:45 Vancomycin HCl 0 ml @ 0 mls/hr UD IV 08/28/24 12:30 Meropenem 50 ml @ 17 mls/hr Q12H IV 08/29/24 01:30 09/01/24 14:11 17 MLS/HR Sodium Chloride 10 ml QSHIFT@, IV 08/29/24 22:00 09/01/24 09:43 10 ML Thiamine HCl 100 mg DAILY IV 08/30/24 14:00 09/03/24 13:59 09/01/24 09:43 100 MG Levothyroxine Sodium 50 mcg QAM@0600 PO 09/01/24 06:00 Potassium Chloride/Sodium Chloride 1,000 ml @ 50 mls/hr Q20H IV 09/01/24 06:30 09/01/24 06:44 50 MLS/HR Vancomycin HCl 200 ml @ 200 mls/hr Q16H IV 09/01/24 09:00 09/01/24 09:42 200 MLS/HR Olanzapine 10 mg DAILY PO 09/02/24 10:00 Laboratory Results Laboratory Tests 08/30/24 05:15 09/01/24 04:58 Chemistry Test 09/01/24 04:58 Calcium Level 8.1 mg/dL (8.7-10.4) L Urinalysis Test 08/26/24 15:50 Urine Color Light-yellow (Yellow) Urine Clarity Clear (Clear) Urine pH 6.0 (5.0-9.0) Urine Specific [place] 1.014 (1.001-1.035) Urine Protein Trace (Negative) H Urine Ketones 2+ (Negative) H Urine Blood Negative /uL (Negative) Urine Nitrite Negative (Negative) Urine Bilirubin Negative (Negative) Urine Urobilinogen Normal mg/dL (Negative) Urine Leukocyte Esterase Negative /uL (Negative) Urine RBC <1 /hpf (0 - 4) Urine Microscopic WBC 3 /HPF (0-5) Urine Squamous Epithelial Cells Few /hpf (<5) Urine Bacteria None seen /hpf (None Seen) Urine Mucus Few (None Seen) Urine Glucose Normal mg/dL (Normal) Microbiology Microbiology Date/Time Source Procedure Growth Status 08/30/24 10:41 Blood Blood Culture - Preliminary NO GROWTH AFTER 48 HOURS OF INCUBATION. Resulted Labs and/or images reviewed: Labs reviewed by me, Image(s) reviewed by me Assessment/Plan Assessment/Plan 08/28-severe hypokalemia repleted with Ja cornell. Unable to get MRI due to kyphosis. CT head pending to re-evaluate the left facial droop possible stroke/CVA. Broad-spectrum antibiotics escalate to vanc Merrem. Unable to give NG tube due to kyphosis inpatient not following commands. Unable to give p.o. meds/Parkinson's meds. Holding Seroquel. Unable to consult Neurology, no neurology service. We will try transfer to higher level care for neuro. We will start PICC line. Continue maintenance fluids D5 half-normal saline 75 cc. We will start PPN today, PICC line for eventual transition to TPN.. Per family patient's baseline is A&O times 3-4 and full conversational/speaks full sentences. 08/29 CT head or was not placed yesterday, we will do today. Still no NG tube we will need PICC line 2 2 PPN to TPN transfer. Continue transfer to [facility] for neurology eval. Continue broad-spectrum antibiotics. Becoming hypernatremic we will need to continue D5 half-normal. She has bacteremia with Gram-positive cocci in clusters resembling staph likely, we have patient on broad-spectrum antibiotics vancomycin/meropenem repeat blood cultures done on 08/29 a.m. draw, we will follow up in pending. Patient appears to be more awake today, we will try bedside swallow with RN and offer ice chips if needed thereafter. Family has left bedside unable to update them on the plan today. PICC line form signed 08/30 continues to improve, today speech is more comprehensible. we are giving 75 cc D5 half-normal saline but patient continues to remain low glucose. We will do workup for insulinoma (insulin level, C-peptide level, beta hydroxy butyrate). We will follow up on TSH/free T4, a.m. cortisol tomorrow, we will start IV B1/thiamine. Continue to TPN today has PICC line has been inserted. Continue IV antibiotics vancomycin/Merrem. Continue transfer for neurology eval. HOME HEALTH ASSISTANT trial today if tolerates p.o. we need start p.o. parkinsons medications. Story is unclear with family as to what is the baseline of patient, some mixed picture of this which could be a waxing waning symptoms, if so this could be a baseline for patient 08/31- passed swallow eval, okay for puree. We will start giving p.o. meds with puree foods. TSH high, T4 lower and normal patient needs to be restarted on Synthroid and/or go up on Synthroid dose, we will hold off IV Synthroid and increase on p.o. Synthroid dose. Continue other treatments and follow up on insulinoma labs. Hold off neurology transfer for [facility] 09/01 - patient refusing to tolerate p.o. again. 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 Had discussion for PEG tube with daughter Jenny and we will reconvene for decision tomorrow. Today we will deescalate antibiotics as patient continues to improve. Stop vancomycin/Merrem and start Rocephin. Continue pureed diet as patient tolerates, continue TPN, change Synthroid to IV 50 mg daily. Patient was hospice prior, unknown reason for hospice, patient daughter also unable to provide hospice placement criteria/dx/reasoning. Patient qualifies for sniff rehab per PT, daughter is also deciding if she wants to continues hospice or go for rehab SNF.. ASSESSMENT acute toxic metabolic encephalopathy, due to below sepsis due to below bacteremia ruleout hypoglycemia starvation ketosis- recent complicated cystitis stroke, likely, will rule out iatrogenic /polypharmacy? parkinsons/dementia/ npo status PLAN - on abx unasyn.. bacteremia ruleout. cont tx possible contuning complicated cystiits as below. - d5/halfNS gtt 75cc patient has been npo. unable to tolerate her meds since sent home. Unable to insert a NG tube, HOME HEALTH ASSISTANT eval pending - on broad-spectrum antibiotics . ctx, prior Vancomycin meropenem. Prior unasyn - for stroke past 24hr window, no need tele neuro right now - will get CT head -- stop seroquel. no neuro available to do med rec or ruleout neurological causes/parkinson related causes of AMS - NG tube insert failed, unable to give carbidopa levodopa. Needs neurology transfer for Neurology to [facility] diet npo tele gi - protonix dvt- lovenox poor prognosis full code per daughter at bedside Plan discussed with: Patient My Orders Orders - PERRY GROSS MD Procedure Category Date Status Time Vancomycin 1gm/200ml PHA 09/01/24 In Process Pm 09:00 Vancomycin,Trough LAB 09/03/24 Verified 08:00 Vancomycin Per CELESTE 09/03/24 In Process Pharmacy [facility] 09:00 Creatinine LAB 09/03/24 Verified 08:00 Creatinine LAB 09/02/24 Verified 05:00 Olanzapine Tablet PHA 09/02/24 In Process (Zyprexa Tablet) 10:00 Date of Service: September 01, 2024 Billing Provider: PERRY GROSS MD Common Visit Codes: [id number] INP/OBS CARE(HIGH) PERRY GROSS MD September 01, 2024 15:07
[2024-09-01 16:30] VITALS: BP 141/69; PULSE 72; RESP 19; TEMP 98.3; O2SAT 96
[2024-09-01] MEDS: LEVOTHYROXINE SODIUM 100 MCG/5 ML INJ IV ONE (18:02)
[2024-09-01 21:00] VITALS: BP 140/77; PULSE 74; RESP 16; TEMP 97.5; O2SAT 95
[2024-09-02 01:00] VITALS: BP 128/81; PULSE 62; RESP 16; TEMP 97.4; O2SAT 93
[2024-09-02 05:00] VITALS: BP 145/71; PULSE 63; RESP 16; TEMP 97.2; O2SAT 94
[2024-09-02 06:42] LABS: Potassium 4.6 mmol/L (3.5-5.1); Sodium 145 mmol/L (136-145)
[2024-09-02 06:43] LABS: Anion Gap 8 (5-15); Carbon Dioxide 24 mmol/L (20-31)
[2024-09-02 06:48] LABS: BUN/Creatinine Ratio 27.8 (10.0-20.0); Blood Urea Nitrogen 10 mg/dL (9-23); Glucose 78 mg/dL (74-106)
[2024-09-02 07:02] LABS: Calcium 7.6 mg/dL (8.7-10.4); Chloride 113 mmol/L (98-107)
[2024-09-02 08:45] VITALS: BP 145/73; PULSE 57; RESP 16; TEMP 97.6; O2SAT 96
[2024-09-02] MEDS: OLANZapine 5 MG TAB PO SCH (10:10)
[2024-09-02] MEDS: LEVOTHYROXINE SODIUM 100 MCG/5 ML INJ IV SCH (10:16)
[2024-09-02 12:20] VITALS: BP 136/72; PULSE 61; RESP 15; TEMP 97.9; O2SAT 95
--- NOTE | 2024-09-02 13:54 | DVHDS2 ---
Discharge Summary Date of Admission August 26, 2024 at 17:36 Date of Discharge: September 02, 2024 Labs/Diagnostic Data: Laboratory Results Test 09/02/24 11:30 09/02/24 05:45 09/01/24 04:58 08/31/24 19:00 POC Glucose 87 mg/dl (70-106) Sodium Level 145 mmol/L (136-145) Potassium Level 4.6 mmol/L (3.5-5.1) Chloride Level 113 mmol/L (98-107) Carbon Dioxide Level 24 mmol/L (20-31) Anion Gap 8 (5-15) Blood Urea Nitrogen 10 mg/dL (9-23) Creatinine 0.36 mg/dL (0.550-1.02) Glomerular Filtration Rate Calc 104 mL/min (>90) BUN/Creatinine Ratio 27.8 (10.0-20.0) Serum Glucose 78 mg/dL (74-106) Calcium Level 7.6 mg/dL (8.7-10.4) Random Vancomycin Level 16.6 ug/mL (5-10) Vancomycin Level Trough 25.1 ug/mL (5-10) Test 08/31/24 07:14 08/31/24 05:24 08/30/24 13:00 08/30/24 05:15 Cortisol AM Sample 16.32 ug/dL (5.27-22.45) Total Bilirubin 0.4 mg/dL (0.2-1.0) Aspartate Amino Transferase (AST) 16 U/L (13-40) Alanine Aminotransferase (ALT) < 9 U/L (7-40) Alkaline Phosphatase 77 U/L (46-116) Total Protein 6.4 g/dL (5.7-8.2) Albumin 3.1 g/dL (3.2-4.8) Insulin Level 2.8 uIU/mL (2.6-24.9) C-Peptide 1.1 ng/mL (1.1-4.4) White Blood Count 6.1 10^3/uL (4.4-10.8) Red Blood Count 4.31 10^6/uL (4.0-5.20) Hemoglobin 10.4 g/dL (12.2-16.2) Hematocrit 32.6 % (36.0-46.0) Mean Corpuscular Volume 75.6 fL (80.0-100.0) Mean Corpuscular Hemoglobin 24.2 pg (28.0-32.0) Mean Corpuscular Hemoglobin Concent 32.0 g/dL (32.0-36.0) Red Cell Distribution Width 15.5 % (11.8-14.3) Platelet Count 266 10^3/uL (140-450) Mean Platelet Volume 8.9 fL (6.9-10.8) Neutrophils (%) (Auto) 70.6 % (37.0-80.0) Lymphocytes (%) (Auto) 16.0 % (10.0-50.0) Monocytes (%) (Auto) 7.6 % (0.0-12.0) Eosinophils (%) (Auto) 4.8 % (0.0-7.0) Basophils (%) (Auto) 1.0 % (0.0-2.0) Neutrophils # (Auto) 4.3 10 ^3/uL (1.6-8.6) Lymphocytes # (Auto) 1.0 10 ^3/uL (0.4-5.4) Monocytes # (Auto) 0.5 10 ^3/uL (0-1.3) Eosinophils # (Auto) 0.3 10 ^3/uL (0-0.8) Basophils # (Auto) 0.1 10 ^3/uL (0-0.2) Nucleated Red Blood Cells 0.1 % Beta-Hydroxybutyric Acid 0.749 mmol/L (< 0.4) Test 08/29/24 05:35 08/28/24 04:50 08/27/24 14:50 08/27/24 14:43 Prothrombin Time 12.0 sec (9.3-11.8) Prothrombin Time INR 1.15 (0.9-1.15) Activated Partial Thromboplast Time 29.3 SEC (24.5-34.5) Vitamin B12 Level 499 pg/mL (211-911) Free Thyroxine (T4) Calculated 0.94 ng/dL (0.89-1.76) Ammonia < 10 umol/L (11-32) Blood Gas Specimen Type Arterial Blood Gas Sample Site Left radial Blood Gas Patient Temperature 37.0 Arterial Blood Date Drawn [id number] Arterial Blood pH 7.393 (7.350-7.450) Arterial Blood Partial Pressure CO2 36.6 mmHg (32.0-45.0) Arterial Blood Partial Pressure O2 78.8 mmHg (83.0-108.0) Arterial Blood HCO3 21.8 mmol/L (21.0-28.0) Arterial Blood Oxygen Saturation 96.1 % (94.0-98.0) Arterial Blood Base Excess -2.7 mmol/L (-2.0-3.0) Arterial Blood Oxyhemoglobin 95.4 % (94.0-98.0) Arterial Blood Carboxyhemoglobin 0.2 % (0.5-1.5) Arterial Blood Methemoglobin 0.5 % (0.0-1.5) Brandon Test Modified Blood Gas Total Hemoglobin 11.50 g/dL (12.0-16.0) Blood Gas Liter Flow 3.00 Blood Gas Modality Nasal cannula FiO2 % 32.0 Test 08/27/24 06:03 08/26/24 17:53 08/26/24 15:50 Thyroid Stimulating Hormone (TSH) 12.36 uIU/mL (0.55-4.78) Troponin I High Sensitivity 10 ng/L (</=34) Urine Color Light-yellow (Yellow) Urine Clarity Clear (Clear) Urine pH 6.0 (5.0-9.0) Urine Specific [place] 1.014 (1.001-1.035) Urine Protein Trace (Negative) Urine Ketones 2+ (Negative) Urine Blood Negative /uL (Negative) Urine Nitrite Negative (Negative) Urine Bilirubin Negative (Negative) Urine Urobilinogen Normal mg/dL (Negative) Urine Leukocyte Esterase Negative /uL (Negative) Urine RBC <1 /hpf (0 - 4) Urine Microscopic WBC 3 /HPF (0-5) Urine Squamous Epithelial Cells Few /hpf (<5) Urine Bacteria None seen /hpf (None Seen) Urine Mucus Few (None Seen) Urine Glucose Normal mg/dL (Normal) Other Laboratory Tests 09/02/24 05:45 08/30/24 05:15 Brief Hx & Hospital Course: 08/28-severe hypokalemia repleted with K rider. Unable to get MRI due to kyphosis. CT head pending to re-evaluate the left facial droop possible stroke/CVA. Broad-spectrum antibiotics escalate to vanc Merrem. Unable to give NG tube due to kyphosis inpatient not following commands. Unable to give p.o. meds/Parkinson's meds. Holding Seroquel. Unable to consult Neurology, no neurology service. We will try transfer to higher level care for neuro. We will start PICC line. Continue maintenance fluids D5 half-normal saline 75 cc. We will start PPN today, PICC line for eventual transition to TPN.. Per family patient's baseline is A&O times 3-4 and full conversational/speaks full sentences. 08/29 CT head or was not placed yesterday, we will do today. Still no NG tube we will need PICC line 2 2 PPN to TPN transfer. Continue transfer to [facility] for neurology eval. Continue broad-spectrum antibiotics. Becoming hypernatremic we will need to continue D5 half-normal. She has bacteremia with Gram-positive cocci in clusters resembling staph likely, we have patient on broad-spectrum antibiotics vancomycin/meropenem repeat blood cultures done on 08/29 a.m. draw, we will follow up in pending. Patient appears to be more awake today, we will try bedside swallow with RN and offer ice chips if needed thereafter. Family has left bedside unable to update them on the plan today. PICC line form signed 08/30 continues to improve, today speech is more comprehensible. we are giving 75 cc D5 half-normal saline but patient continues to remain low glucose. We will do workup for insulinoma (insulin level, C-peptide level, beta hydroxy butyrate). We will follow up on TSH/free T4, a.m. cortisol tomorrow, we will start IV B1/thiamine. Continue to TPN today has PICC line has been inserted. Continue IV antibiotics vancomycin/Merrem. Continue transfer for neurology eval. [employer] trial today if tolerates p.o. we need start p.o. parkinsons medications. Story is unclear with family as to what is the baseline of patient, some mixed picture of this which could be a waxing waning symptoms, if so this could be a baseline for patient 08/31- passed swallow eval, okay for puree. We will start giving p.o. meds with puree foods. TSH high, T4 lower and normal patient needs to be restarted on Synthroid and/or go up on Synthroid dose, we will hold off IV Synthroid and increase on p.o. Synthroid dose. Continue other treatments and follow up on insulinoma labs. Hold off neurology transfer for [facility] 09/01 - patient refusing to tolerate p.o. again. 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 Had discussion for PEG tube with daughter Jenny and we will reconvene for decision tomorrow. Today we will deescalate antibiotics as patient continues to improve. Stop vancomycin/Merrem and start Rocephin. Continue pureed diet as patient tolerates, continue TPN, change Synthroid to IV 50 mg daily. Patient was hospice prior, unknown reason for hospice, patient daughter also unable to provide hospice placement criteria/dx/reasoning. Patient qualifies for sniff rehab per PT, daughter is also deciding if she wants to continues hospice or go for rehab SNF.. 09/02 - tests have come back mostly unremarkable. Initial blood cultures were concerning which were likely contamination with Staph epidermidis. Patient has been on vanc meropenem for couple of days and no significant changes being seen. Patient likely has cleared urine infection and likely does not have bacteremia. No further antibiotics needed which can further harm patient's current condition given her age and comorbid. Patient has not taken any medications/very few times has taken medications and this likely is related to Parkinson's end-stage dementia and/or hospital delirium which can resolve only bike going home. Patient was this time continues to meet hospice criteria and patient was family POA daughter Jenny wants to continue hospice care. Patient meets sniff rehab criteria but per patient's family she has not ambulated for at least 2 or more years. It appears that patient has baseline is at the current [place]. She does not appear to have some worsening of her baseline which more so mixed reason for hospice. poor TSH results likely due to patient not taking synthroid. Patient was family declines wanting PEG tube in 1 to encourage oral feeds at home. Patient vitals stable and stable for discharge to hospice as per plan below. ASSESSMENT/DIAGNOSIS acute toxic metabolic encephalopathy, due to below, resolving to baseline sepsis due to below bacteremia resolved hypoglycemia, resolved starvation ketosis- complicated cystitis , resolved iatrogenic, polypharmacy possible stroke, ruled out parkinsons dementia, late stage, advanced, likely poor po tolerance due to above PLAN - stop antibiotics - okay for oral feeds with family encouragement - discharge to hospice, and continue hospice, defer medication continuation to hospice agency. - continuation of home meds defer to hospice agency. At this time we will not start any new medications. - social consult for gurney transfer home Condition at Discharge: Poor Final Diagnosis/Problems List acute toxic metabolic encephalopathy, due to below, resolving to baseline sepsis due to below bacteremia resolved hypoglycemia, resolved starvation ketosis- complicated cystitis , resolved iatrogenic, polypharmacy possible stroke, ruled out parkinsons dementia, late stage, advanced, likely poor po tolerance due to above Discharge Disposition: Hospice - Home Discharge Statement: "Patient was advised to return to the ER or call 911 if any headaches, dizziness, shortness of breath, chest pain, abdominal pain, bleeding, fevers, or worsening of medical condition. Patient was counseled about treatment plan, medications, possible side effects, patientverbalized understanding. All questions were answered to the best of my ability. This discharge took greater then 30 minutes in planning, reviewing documentation, counseling the patient, and discussing with other team members." ASSESSMENT ASSESSMENT Assessment Date of Service: September 02, 2024 Billing Provider: PERRY GROSS MD Common Visit Codes: 60591-FYH/OBS DISCH DAY >30min PERRY GROSS MD September 02, 2024 13:54
[2024-09-02 16:20] VITALS: BP 129/56; PULSE 63; RESP 15; TEMP 97.9; O2SAT 95
== END 2024-09-02 20:16 | disposition hospice, home (50) | DRG 871 ==
LOC: EDBD 12:14 → EDUNIT# 12:14 → ER 12:16 → OVERFLOW 17:36 → EAST 08-27 17:20
PROVIDERS: ADMIT Student in an Organized Health Care Education/Training Program; ATTEND Student in an Organized Health Care Education/Training Program
PROC: 02HV33Z Insertion of Infusion Device into Superior Vena Cava, Percutaneous Approach (ICD-10-PCS; principal; 2024-08-29)
PROC: B548ZZA Ultrasonography of Superior Vena Cava, Guidance (ICD-10-PCS; 2024-08-29)
DX: A41.9 Sepsis, unspecified organism (principal); G92.8 Other toxic encephalopathy; L89.153 Pressure ulcer of sacral region, stage 3; F05 Delirium due to known physiological condition; E11.649 Type 2 diabetes mellitus with hypoglycemia without coma; I10 Essential (primary) hypertension; E03.9 Hypothyroidism, unspecified; F02.80 Dementia in other diseases classified elsewhere, unspecified severity, without behavioral disturbance, psychotic disturbance, mood disturbance, and anxiety; G20.A1 Parkinson's disease without dyskinesia, without mention of fluctuations; N30.90 Cystitis, unspecified without hematuria; E11.65 Type 2 diabetes mellitus with hyperglycemia; E88.89 Other specified metabolic disorders; E87.6 Hypokalemia; K21.9 Gastro-esophageal reflux disease without esophagitis; Z74.01 Bed confinement status; Z88.5 Allergy status to narcotic agent
CPT/HCPCS: 36415; 36569; 36600; 70450; 71045; 80048; 80053; 80202; 81001; 82010; 82140; 82533; 82607; 82805; 82962; 83525; 84439; 84443; 84484; 85025; 85610; 85730; 87040; 87077; 87186; 92610; 96365; 96366; 96376; 99291; G0378; J2003; J2185; J2470; J3490